=== PATIENT | male | born 1950 | race Asian ===

== ENCOUNTER → 2020-05-22 14:42 | Outpatient (BNVA) | payer MEDICARE, SELFPAY | PROVIDERS: Visit Provider Nurse Practitioner Gerontology | DX: E11.65 Type 2 diabetes mellitus with hyperglycemia (principal); E11.42 Type 2 diabetes mellitus with diabetic polyneuropathy; Z79.4 Long term (current) use of insulin; E78.5 Hyperlipidemia, unspecified; E55.9 Vitamin D deficiency, unspecified; I10 Essential (primary) hypertension; R07.89 Other chest pain | CPT/HCPCS: 82947; 99212 ==

== ENCOUNTER → 2020-06-26 15:10 | Outpatient (BNVA) | payer MEDICARE, SELFPAY | PROVIDERS: Visit Provider Nurse Practitioner Gerontology | DX: E11.65 Type 2 diabetes mellitus with hyperglycemia (principal); E11.42 Type 2 diabetes mellitus with diabetic polyneuropathy; Z79.4 Long term (current) use of insulin | CPT/HCPCS: 82947; 99212 ==

== ENCOUNTER → 2020-07-11 14:56 | Outpatient (BNVA) | payer MEDICARE, SELFPAY | PROVIDERS: Visit Provider Nurse Practitioner Gerontology | DX: E11.649 Type 2 diabetes mellitus with hypoglycemia without coma (principal); E11.42 Type 2 diabetes mellitus with diabetic polyneuropathy; Z79.4 Long term (current) use of insulin; E78.5 Hyperlipidemia, unspecified; I10 Essential (primary) hypertension; E55.9 Vitamin D deficiency, unspecified | CPT/HCPCS: 82947; 99212 ==

== ENCOUNTER 2020-08-22 09:50 | Outpatient (REF) | payer MEDICARE, SELFPAY ==
[2020-08-22 11:42] LABS: MANUAL DIFF FLAG NO
[2020-08-22 11:56] LABS: Basophils Absolute Auto 0.1 X10*3/uL (0.0-0.2); Basophils Percent Auto 0.6 % (0-2); Eosinophils Absolute Auto 0.3 X10*3/uL (0.0-0.4); Eosinophils Percent Auto 2.8 % (0-4); Hematocrit 45.4 % (42-52); Hemoglobin 13.5 g/dl (14.0-18.0); Imm Gran Abs Auto 0.03 X10*3/uL (0.00-0.03); Imm Gran Pct Auto 0.3 % (0.0-0.4); Lymphocytes Absolute Auto 3.8 X10*3/uL (1.2-4.9); Lymphocytes Percent Auto 31.6 % (20-40); Mean Corpuscular HGB Conc 29.7 g/dl (31.0-36.0); Mean Corpuscular Hemoglobin 23.4 pg (27.0-33.0); Mean Corpuscular Volume 78.8 fL (80-98); Mean Platelet Volume 11.3 fL (9.4-12.4); Monocytes Percent Auto 7.9 % (2-11); Neutrophils Absolute Auto 6.8 X10*3/uL (2.0-8.3); Neutrophils Percent Auto 56.8 % (45-73); Platelet Count 278 X10*3/uL (160-400); Red Blood Count 5.76 X10*6/uL (4.60-5.80); Red Cell Distribution Width 19.3 % (11.0-16.0)
[2020-08-22 12:37] LABS: Alanine Aminotransferase 14 U/L (0-40); Albumin Level 4.3 g/dL (3.5-5.0); Alkaline Phosphatase 79 U/L (39-117); Aspartate Amino Transferase 16 U/L (5-37); Bilirubin Direct 0.4 mg/dL (0.0-0.5); Bilirubin Total 0.8 mg/dL (0.0-1.0); Blood Urea Nitrogen 31 mg/dL (9-16); Calcium 9.9 mg/dL (8.4-10.2); Cholesterol 118 mg/dL; Estimated Glomerular Filt Rate 56; Glucose Random 127 mg/dL (60-115); HDL Cholesterol 29 mg/dL; LDL Cholesterol Calculated 49 mg/dl; Total Protein 8.3 g/dL (6.5-8.0); Triglycerides 201 mg/dL
[2020-08-22 12:42] LABS: Thyroid Stimulating Hormone 1.89 uIU/mL (0.32-4.0)
[2020-08-22 13:20] LABS: Anion Gap 15 (12-20); Carbon Dioxide 28 mmol/L (22-29); Chloride 103 mmol/L (96-108); Potassium 5.3 mmol/L (3.3-5.1); Sodium 141 mmol/L (135-145)
== END 2020-08-22 09:51 | disposition home or self-care (01) ==
LOC: HO.LAB 09:50
PROVIDERS: Absent Provider Internal Medicine; Visit Provider Nurse Practitioner Gerontology
DX: E11.42 Type 2 diabetes mellitus with diabetic polyneuropathy (principal); E11.21 Type 2 diabetes mellitus with diabetic nephropathy; Z79.4 Long term (current) use of insulin; E78.5 Hyperlipidemia, unspecified; E55.9 Vitamin D deficiency, unspecified; I10 Essential (primary) hypertension
CPT/HCPCS: 36415; 80048; 80061; 80076; 82306; 82947; 84443; 85025; 99212

== ENCOUNTER 2021-03-28 16:35 | Emergency (ER) | payer MEDICARE, SELFPAY ==
[2021-03-28 17:04] VITALS: BP 149/81; PULSE 94; RESP 18; TEMP 36.7; O2SAT 98; BMI 25.8
--- NOTE | 2021-03-28 17:44 | ED.URI ---
HPI - URI/Sore Throat General Chief Complaint: Upper Respiratory Symptoms Stated Complaint: sinus infection? Time Seen by Provider: 03/28/21 17:44 Source: patient Mode of arrival: ambulatory Limitations: no limitations History of Present Illness HPI Narrative: 70 y/o male wiht history of meningitis in the past with chronic weakness, hx HTN, HLD, PAD, DM with neuropathy, history of arthritis who presents to the ER from Urgent Care clinic today with right maxillary sinus pain and pressure along with green nasal discharge for the last 3 weeks. He was sent over for a COVID test. He denies shortness of breath or chest pain. He also admits to 4 days of left shoulder pain, worse at night when he sleeps on his left side. It is also worse with full abduction. He has history of arthritis and has been taking tylenol for this with improvement. He has no nausea or diaphoresis. He is having a difficult time sleeping because of the nasal congestion. MD elicited complaint: nasal congestion and sinus pain Onset (ago): week(s) (Three) Consistency: constant Severity: moderate Description of mucous: green Able to tolerate fluids by mouth: Yes Exacerbating factors: changing head position and supine positioning Relieving factors: OTC cold medicine Associated symptoms: myalgias and nasal congestion Treatments prior to arrival: none Related Data Home Medications Medication Instructions Recorded Confirmed diclofenac sodium 50 mg 50 mg PO TID PRN 05/22/20 11/07/20 tablet,delayed release gabapentin 300 mg capsule 300 mg PO TID 05/22/20 11/07/20 lubiprostone 24 mcg capsule 24 mcg PO BID 05/22/20 11/07/20 (Amitiza) acetaminophen 500 mg tablet 1,000 mg PO QPM PRN tab 08/08/20 11/07/20 (Tylenol Extra Strength) Previous Rx's Medication Instructions Recorded miscellaneous medical supply #1 ea 08/08/20 blood sugar diagnostic (Accu-Chek #100 ea 08/31/20 Nelly Plus test strp) insulin degludec 100 unit/mL (3 15 unit SUBCUT DAILY #15 ml 08/31/20 mL) subcutaneous pen (Tresiba FlexTouch U-100 insulin) metformin 1,000 mg tablet 1,000 mg PO BID #180 tab 10/04/20 empagliflozin 25 mg tablet 25 mg PO DAILY #90 tab 10/05/20 (Jardiance) carvedilol 25 mg tablet 25 mg PO ONCE #90 tab 10/13/20 allopurinol 100 mg tablet 100 mg PO BID #180 tab 11/07/20 allopurinol 100 mg tablet 100 mg PO BID 90 Days #180 tab 11/07/20 aspirin 81 mg tablet,delayed 81 mg PO DAILY #90 tab 11/07/20 release (Adult Low Dose Aspirin) aspirin 81 mg tablet,delayed 81 mg PO DAILY #90 tab 11/07/20 release (Adult Low Dose Aspirin) cholecalciferol (vitamin D3) 25 25 mcg PO DAILY #30 cap 11/07/20 mcg (1,000 unit) capsule cholecalciferol (vitamin D3) 25 25 mcg PO DAILY #90 cap 11/07/20 mcg (1,000 unit) capsule cilostazol 100 mg tablet 100 mg PO BID #180 tab 11/07/20 cilostazol 100 mg tablet 100 mg PO BID 90 Days #180 tab 11/07/20 docusate sodium 100 mg capsule 100 mg PO BID #180 cap 11/07/20 docusate sodium 100 mg capsule 100 mg PO BID 90 Days #180 cap 11/07/20 losartan 25 mg tablet 25 mg PO DAILY 90 Days #90 tab 11/07/20 losartan 25 mg tablet 25 mg PO DAILY 90 Days #90 tab 11/07/20 lubiprostone 24 mcg capsule 24 mcg PO BID #180 cap 11/07/20 (Amitiza) insulin lispro 100 unit/mL 4 - 6 unit SUBCUT TID #30 ml 12/22/20 subcutaneous pen (Humalog KwikPen (U-100) Insulin) atorvastatin 40 mg tablet 40 mg PO DAILY #90 tab 01/07/21 omeprazole 20 mg capsule,delayed 20 mg PO BID #60 cap 02/13/21 release dulaglutide 1.5 mg/0.5 mL 1.5 mg SUBCUT QWEEK 90 Days #6.5 ml 03/13/21 subcutaneous pen injector (Trulicity) amoxicillin 875 mg-potassium 1 tab PO Q12H #20 tab 03/28/21 clavulanate 125 mg tablet (Augmentin) fluticasone propionate 50 2 spray INTRANASAL DAILY #16 g 03/28/21 mcg/actuation nasal spray,suspension (24 Hour Allergy Relief) Allergies Allergy/AdvReac Type Severity Reaction Status Date / Time peanut Allergy Unknown Verified 03/28/21 17:04 Review of Systems Review of Systems: Constitutional: No Fever, No Chills ENT/Mouth: No sore throat, + Rhinorrhea, No Swallowing Difficulty, +Nasal congestion Eyes: No Eye Pain, No Swelling, No Redness Cardiovascular: No Chest Pain, No SOB, No Orthopnea, No Edema Respiratory: No Cough, No Sputum, No Wheezing, No dyspnea Gastrointestinal: No Nausea, No Vomiting, No Diarrhea, No abdominal Pain, No Hematochezia, No Melena Musculoskeletal: + joint pain, No Myalgias Skin: No Skin Lesions, No rash Neuro: + Weakness, No Numbness, No Dizziness, + Headache Heme/Lymph: No Bruising, No Lymphadenopathy PMFSH Past Medical History Medical History (Updated 03/28/21 @ 18:34 by SHAHNAZ Walton) CAD (coronary artery disease) Essential hypertension GERD (gastroesophageal reflux disease) Gout Hyperlipidemia LDL goal <70 PAD (peripheral artery disease) Screening for colon cancer Screening for prostate cancer Type 2 diabetes mellitus with diabetic polyneuropathy Type 2 diabetes mellitus with hyperglycemia, with long-term current use of insulin Type 2 diabetes mellitus with hypoglycemia Vitamin D deficiency Surgical History History of open heart surgery Hx of removal of cyst Family History Family History Father CVD (cardiovascular disease) Mother CVD (cardiovascular disease) Social History Social History Household Members: Family Housing: House Alcohol intake: never Advance Directives: No Advance Directives Information Provided: No Physical Exam Vital Signs: Vital Signs: Last Vital Signs Temp 98.0 F 03/28/21 17:04 Pulse 94 03/28/21 17:04 Resp 18 03/28/21 17:04 BP 149/81 H 03/28/21 17:04 Pulse Ox 98 03/28/21 17:04 Body Mass Index 25.8 Appearance: Alert. Oriented X3. No acute distress. Eyes: normal inspection. ENT: Pharynx with mild generalized erythema. Bilateral TM's with bulging and erythema, L>R. Right maxillary sinus tenderness, erythematous nasal turbinates bilaterally. Neck: Normal inspection. Neck supple. CVS: Normal heart rate and rhythm. Pulses normal. Respiratory: No respiratory distress. Breath sounds normal. Abdomen: Soft and nontender. +BS x4 Skin: Skin warm and dry. Normal skin color. Normal skin turgor. No rashes. Extremities: No lower extremity edema. Neuro: Oriented X 3. Generalized weakness noted, ambulates slowly with a cane. Course Course Course Narrative: 70-year-old male presenting for COVID testing. He has 3 weeks of sinus pain and green nasal discharge. He is afebrile on arrival. Generalized weakness noted he required assistance getting changed in getting into the bed. He reports this is his baseline. He lives at home with his and his son who helps him with his daily care. We will get a COVID swab and plan to treat for sinus infection. His left shoulder pain seems to be musculoskeletal in nature, he has no chest pain or shortness of breath. His left shoulder pain is reproducible with abductor id and worse when he sleeps on that side. Reevaluation(s) Reevaluation #1: COVID test is negative. Patient is stable for discharge with 10 days of Augmentin and Flonase for his acute sinusitis. He will follow-up with his PCP this week. MDM - URI/Sore Throat Lab Data Labs: Lab Results 03/28/21 03/28/21 Range/Units 17:40 18:12 COVID-19 ([facility]) Cancelled Negative COVID-19 Clin Com Cancelled See Note Critical Care Time Critical Care Time Critical Care Time: No Discharge Plan Discharge Clinical Impression: Sinusitis Qualifiers: Sinusitis location: maxillary Chronicity: acute Recurrence: non-recurrent Qualified Code(s): J01.00 - Acute maxillary sinusitis, unspecified Patient Disposition: Home, Self-Care Instructions: Sinusitis (ED) Additional Instructions: You were negative for COVID today. Start prescribed antibiotics tomorrow morning for acute sinus infection. Your given the 1st dose today in the ER. Use the prescribed nasal spray to help decrease the inflammation and decrease the congestion. Take [id number] cold and flu medications as needed for symptoms. Rest and stay hydrated. Follow-up with your doctor this week. If you develop new or worsening symptoms call 911 or come back to the ER for further evaluation. Prescriptions: New amoxicillin-pot clavulanate [Augmentin] 875-125 mg tablet 1 tab PO Q12H Qty: 20 RF: 0 fluticasone propionate [24 Hour Allergy Relief] 50 mcg/actuation spray,suspension 2 spray intranasal DAILY Qty: 16 RF: 0 No Action (DME) Accu-Chek Nelly Plus test strp Strip See Rx Instructions .ROUTE .MEDSUPPLY Qty: 100 RF: 11 Tresiba FlexTouch U-100 100 unit/mL (3 mL) insulin pen 15 unit subcut DAILY Qty: 15 RF: 2 metformin 1,000 mg tablet 1,000 mg PO BID Qty: 180 RF: 3 empagliflozin [Jardiance] 25 mg tablet 25 mg PO DAILY Qty: 90 RF: 3 carvedilol 25 mg tablet 25 mg PO ONCE Qty: 90 RF: 1 insulin lispro [Humalog KwikPen Insulin] 100 unit/mL insulin pen 4 - 6 unit subcut TID Qty: 30 RF: 0 atorvastatin 40 mg tablet 40 mg PO DAILY Qty: 90 RF: 0 omeprazole 20 mg capsule,delayed release(DR/EC) 20 mg PO BID Qty: 60 RF: 0 Trulicity 1.5 mg/0.5 mL pen injector 1.5 mg subcut QWEEK 90 Days Qty: 6.5 RF: 0 acetaminophen [Tylenol Extra Strength] 500 mg tablet 1,000 mg PO QPM PRNRF: 0 (DME) [facility] See Rx Instructions .ROUTE .MEDSUPPLY Qty: 1 RF: 0 allopurinol 100 mg tablet 100 mg PO BID 90 Days Qty: 180 RF: 0 aspirin [Adult Low Dose Aspirin] 81 mg tablet,delayed release (DR/EC) 81 mg PO DAILY Qty: 90 RF: 1 cholecalciferol (vitamin D3) 25 mcg (1,000 unit) capsule 25 mcg PO DAILY Qty: 30 RF: 11 docusate sodium 100 mg capsule 100 mg PO BID 90 Days Qty: 180 RF: 0 losartan 25 mg tablet 25 mg PO DAILY 90 Days Qty: 90 RF: 1 cilostazol 100 mg tablet 100 mg PO BID 90 Days Qty: 180 RF: 0 allopurinol 100 mg tablet 100 mg PO BID Qty: 180 RF: 0 lubiprostone [Amitiza] 24 mcg capsule 24 mcg PO BID Qty: 180 RF: 0 aspirin [Adult Low Dose Aspirin] 81 mg tablet,delayed release (DR/EC) 81 mg PO DAILY Qty: 90 RF: 1 docusate sodium 100 mg capsule 100 mg PO BID Qty: 180 RF: 0 losartan 25 mg tablet 25 mg PO DAILY 90 Days Qty: 90 RF: 1 cilostazol 100 mg tablet 100 mg PO BID Qty: 180 RF: 0 cholecalciferol (vitamin D3) 25 mcg (1,000 unit) capsule 25 mcg PO DAILY Qty: 90 RF: 4 gabapentin 300 mg capsule 300 mg PO TID RF: 0 diclofenac sodium 50 mg tablet,delayed release (DR/EC) 50 mg PO TID PRNRF: 0 Amitiza 24 mcg capsule 24 mcg PO BID RF: 0
[2021-03-28 18:38] LABS: COVID-19 Test Negative (Negative)
[2021-03-28] MEDS: Amoxicillin/Potassium Clav 875 MG TABLET PO (19:15)
== END 2021-03-28 19:23 | disposition home or self-care (01) ==
PROVIDERS: Physician Assistant; Emergency Provider Internal Medicine
DX: J01.00 Acute maxillary sinusitis, unspecified (principal); I10 Essential (primary) hypertension; E11.40 Type 2 diabetes mellitus with diabetic neuropathy, unspecified; Z79.4 Long term (current) use of insulin; Z79.82 Long term (current) use of aspirin; Z79.899 Other long term (current) drug therapy; Z20.822 Contact with and (suspected) exposure to COVID-19
CPT/HCPCS: 36415; 87635; 99283

== ENCOUNTER → 2021-06-07 13:18 | Outpatient (BNVA) | payer MEDICARE, SELFPAY | PROVIDERS: Visit Provider Surgery Vascular Surgery | DX: I73.9 Peripheral vascular disease, unspecified (principal) | CPT/HCPCS: 99202 ==

== ENCOUNTER 2021-07-02 12:43 | Outpatient (REF) | payer MEDICARE, SELFPAY ==
--- NOTE | ~2021-07-02 | US_ITS ---
EXAMINATION: NONINVASIVE ASSESSMENT OF THE ARTERIES OF BOTH LOWER EXTREMITIES INCLUDING PVR EXAM AND BILATERAL LOWER EXTREMITY DUPLEX CLINICAL INFORMATION: Peripheral vascular disease, unspecified COMPARISON: None TECHNIQUE: Ankle pulse volume recordings, ankle pressure measurements and ankle brachial indices were obtained of the lower extremity arterial system bilaterally in addition to duplex Doppler techniques with wave form analysis and measurement of velocities in the common femoral, profunda femoral, superficial femoral, popliteal, tibial and peroneal arteries. The study was performed only at rest. FINDINGS: RIGHT LEG 1. Right Ankle-Brachial Index: 1.51 (higher of the DP/PT) >0.97-1.25 = normal - no significant arterial disease 0.75-0.96 = mild peripheral arterial disease 0.5-0.74 = moderate peripheral arterial disease <0.50 = severe peripheral arterial disease <0.30 = critical arterial disease 2. Segmental Pressures (mmHg): Brachial: 135 Ankle: PT 165, DP 204 3. PVR Waveforms: Ankle: Blunted, though present dicrotic notch 4. Direct Duplex: Common femoral artery: 107 cm/s, Multiphasic Profunda femoris artery: 51.9 cm/s, Multiphasic Superficial femoral artery (proximal): 96.2 cm/s, Multiphasic Superficial femoral artery (mid): 148 cm/s, Multiphasic Superficial femoral artery (distal): 87.9 cm/s, Multiphasic Proximal Popliteal artery: 67.6 cm/s, Multiphasic Mid posterior tibial artery: 42.9 cm/s, Multiphasic Peroneal artery: 58.9 cm/s, Multiphasic LEFT LE. Left Ankle-Brachial Index: 1.29 (higher of the DP/PT) >0.97-1.25 = normal - no significant arterial disease 0.75-0.96 = mild peripheral arterial disease 0.5-0.74 = moderate peripheral arterial disease <0.50 = severe peripheral arterial disease <0.30 = critical arterial disease 2. Segmental Pressures: Brachial: 132 Ankle: PT 174, DP 96 3. PVR Waveforms: Ankle: Blunted, though present dicrotic notch 4. Direct Duplex: Common femoral artery: 95.6 cm/s, Multiphasic Profunda femoris artery: 57 cm/s, Multiphasic Superficial femoral artery (proximal): 73.9 cm/s, Multiphasic Superficial femoral artery (mid): 105 cm/s, Multiphasic Superficial femoral artery (distal): 80.9 cm/s, Multiphasic Proximal Popliteal artery: 79.2 cm/s, Multiphasic Mid posterior tibial artery: 85.6 cm/s, monophasic Peroneal artery: 66.8 cm/s, monophasic US/US arterial duplex LE BI IMPRESSION: Right: Elevated ABIs are likely secondary to calcified vessels. Multiphasic flow throughout the right lower extremity without evidence of hemodynamically significant stenosis. Left: Elevated ABIs may be secondary to calcified vessel. There is monophasic flow below the level of the popliteal artery suggestive of popliteal disease.
== END 2021-07-02 12:44 | disposition home or self-care (01) ==
LOC: HO.US 12:43
PROVIDERS: PCP Internal Medicine; Visit Provider Surgery Vascular Surgery
DX: I73.9 Peripheral vascular disease, unspecified (principal)
CPT/HCPCS: 93923; 93925

== ENCOUNTER → 2021-07-05 13:31 | Outpatient (BNVA) | payer MEDICARE, SELFPAY | PROVIDERS: PCP Internal Medicine; Visit Provider Surgery Vascular Surgery | DX: I73.9 Peripheral vascular disease, unspecified (principal) | CPT/HCPCS: 99212 ==

== ENCOUNTER 2022-04-09 07:59 | Outpatient (REF) | payer MEDICARE, SELFPAY ==
[2022-04-09 09:27] LABS: Estimated Average Glucose 180 mg/dL; Hemoglobin A1c % 7.9 %
[2022-04-09 09:36] LABS: Glucose Random 213 mg/dL (60-115)
== END 2022-04-09 08:00 | disposition home or self-care (01) ==
LOC: HO.LAB 07:59
PROVIDERS: PCP Hospitalist; Visit Provider Hospitalist
DX: E11.8 Type 2 diabetes mellitus with unspecified complications (principal)
CPT/HCPCS: 36415; 82947; 83036

== ENCOUNTER → 2022-09-05 14:54 | Outpatient (BNVA) | payer MEDICARE, SELFPAY | PROVIDERS: PCP Hospitalist; Visit Provider Internal Medicine Cardiovascular Disease | DX: I42.9 Cardiomyopathy, unspecified (principal); I44.7 Left bundle-branch block, unspecified; I10 Essential (primary) hypertension | CPT/HCPCS: 93005; 99212 ==

== ENCOUNTER → 2022-10-30 08:44 | Outpatient (REF) | payer MEDICARE, MEDICAID, SELFPAY ==
[2022-09-19 09:30] VITALS: BP 108/62; BP 110/58
[2022-10-15 12:53] VITALS: BP 128/64
--- NOTE | 2022-10-30 08:49 | CA_ITS ---
Transthoracic Echocardiogram Patient (Last, First, Middle): Keren Kohli R Gender: Male Date of : 1950 Age: 72 Procedure Date: 10/30/2022 Procedure Type: Transthoracic Echocardiogram Location: OP Height: 172.72 cm Weight: 72.58 kg BSA: 1.86 m2 Heart Rate: bpm BP: 130 / 58 mmHg Technical Support Agent: TO Referring MD: Shashank Martell MD Symptoms: I42.9 - Cardiomyopathy, unspecified Study Quality: Fair/Contrast Conclusions: - Normal left ventricular cavity size. The left ventricular systolic function is moderately decreased. The visually estimated ejection fraction is between 30-35%. - The inferior wall, the apex, apical septum, basal inferoseptal, and mid anteroseptal segments are akinetic. - The mid inferoseptal segment is dyskinetic. - Normal right ventricular cavity size. There is mild to moderately decreased right ventricular systolic function. - There is moderate aortic valve stenosis. The peak aortic velocity is 2.20 m/s. The mean gradient is 9 mmHg. The aortic valve area is 0.95 cm2. There is no aortic valve regurgitation. Gradients are lower due to low stroke volume. Findings Left Ventricle Normal left ventricular cavity size. The left ventricular systolic function is moderately decreased. The visually estimated ejection fraction is between 30-35%. There is evidence of regional wall motion abnormalities. There is paradoxical septal motion consistent with post-operative status and paradoxical septal motion consistent with a left bundle branch block. Diastolic function is indeterminate on the basis of available data. Wall Motion Rest Echo Findings The inferior wall, the apex, apical septum, basal inferoseptal, and mid anteroseptal segments are akinetic. The mid inferoseptal segment is dyskinetic. Right Ventricle Normal right ventricular cavity size. There is mild to moderately decreased right ventricular systolic function. Atria The left atrium is mildly dilated. The right atrium is normal in size. Aortic Valve There is mild calcification of the aortic valve. There is moderate aortic valve stenosis. The peak aortic velocity is 2.20 m/s. The mean gradient is 9 mmHg. The aortic valve area is 0.95 cm2. There is no aortic valve regurgitation. Gradients are lower due to low stroke volume. Mitral Valve There is mild posterior mitral leaflet thickening. There is mild mitral annular calcification. There is trace mitral valve regurgitation. There is no mitral valve stenosis. Tricuspid Valve Normal tricuspid valve structure and function. There is trace tricuspid valve regurgitation. Tricuspid regurgitation envelope is inadequate for calculation of right ventricular systolic pressure. Normal right atrial pressure. Great Vessels All visible segments of the aorta are normal in size. The visualized portions of the pulmonary artery and branches are normal. Venous The inferior vena cava is normal in size and collapses greater than 50% with inspiration. Pericardium/Pleural There is no evidence of pericardial effusion. Measurements 2D Linear Measurements IVSd: 1.57 0.6-0.9/0.6-1.0 cm LVIDd: 5.02 3.9-5.3/4.2-5.9 cm LVIDd Index: 2.70 2.4-3.2/2.2-3.1 cm/m2 LVIDs: 3.78 2.0-3.6 cm LVPWd: 1.00 0.7-1.1 cm LA Diam: 4.20 2.7-3.8/3.0-4.0 cm LAIDs Index: 2.26 1.5-2.3 cm/m2 LV Mass: 323.17 67-162/88-224 g LV Mass Index: 173.75 43-95/49-115 g/m2 LVOT Diam: 2.00 3.0+(-)1.3 cm 2D Systolic Function EF 4C: 38.10 >55% EF 2C: 35.50 >55% EF BiP: 37.80 >55% Mitral Valve MV Pk E: 1.30 MV Decel Time: 128.00 E'Lateral: 16.50 E'Medial: 9.79 E/E' Med: 13.30 E/E' Lat: 7.90 PHT: 38.00 MVA PHT: 5.79 Decel Hunt: 10.14 Aortic Valve AoV Pk Brian: 2.20 AoV Mn Brian: 1.40 AoV VTI: 0.46 AoV Pk Grad: 19.00 Aov Mn Grad: 9.00 ARMAND Cont.VTI: 0.95 LVOT LVOT Pk Brian: 0.73 LVOT Mn Brian: 0.48 LVOT VTI: 0.14 LVOT Pk Grad: 2.00 LVOT Mn Grad: 1.00 LVOT Diam: 2.00 LVOT Area: 3.14 Diastolic Function MV Pk E: 1.30 E'Medial: 9.79 E/E' Med: 13.30 E' Laterial: 16.50 E/E' Lat: 7.90 Right Ventricle TAPSE (mm): 8.91 TVS' Brian: 4.21 Tricuspid Valve RA Press: 3.00 Great Vessels Aorta Sinus of Valsalva: 3.26 2.0-3.[address] [place]: 2.55 1.7-3.4 cm Ao Asc: 3.00 2.1-3.4 cm Updated in Other Vendor System with Status of Final Shashank Martell MD electronically signed on 10/30/2022 1:03:32 PM with status of Final
== END ==
LOC: HO.CARD 08:44
PROVIDERS: PCP Hospitalist; Visit Provider Internal Medicine Cardiovascular Disease
DX: I42.9 Cardiomyopathy, unspecified (principal)
CPT/HCPCS: 93306; Q9957

== ENCOUNTER → 2022-12-13 10:13 | Outpatient (BNVA) | payer OTHER, MEDICAID, SELFPAY ==
[2022-09-19 09:30] VITALS: BP 108/62; BP 110/58
[2022-12-10 11:50] VITALS: BP 104/64; BMI 25.0
== END ==
PROVIDERS: PCP Hospitalist; Visit Provider Internal Medicine Cardiovascular Disease
DX: I42.9 Cardiomyopathy, unspecified (principal); I44.7 Left bundle-branch block, unspecified; I10 Essential (primary) hypertension
CPT/HCPCS: 93005

== ENCOUNTER → 2023-01-13 07:36 | Outpatient (REF) | payer OTHER, SELFPAY ==
[2022-09-19 09:30] VITALS: BP 108/62; BP 110/58
[2022-12-10 11:50] VITALS: BP 104/64; BMI 25.0
[2023-01-13 08:18] LABS: Estimated Average Glucose 206 mg/dL; Hemoglobin A1c % 8.8 %
[2023-01-13 08:47] LABS: Alanine Aminotransferase 11 U/L (0-40); Albumin Level 3.8 g/dL (3.5-5.0); Alkaline Phosphatase 82 U/L (39-117); Anion Gap 16 (12-20); Aspartate Amino Transferase 14 U/L (5-37); Bilirubin Total 0.5 mg/dL (0.0-1.0); Blood Urea Nitrogen 22 mg/dL (9-16); Calcium 9.5 mg/dL (8.4-10.2); Carbon Dioxide 23 mmol/L (22-29); Chloride 105 mmol/L (96-108); Cholesterol 96 mg/dL; Estimated Glomerular Filt Rate > 60; Glucose Random 173 mg/dL (60-115); HDL Cholesterol 27 mg/dL; LDL Cholesterol Calculated 36 mg/dl; Sodium 139 mmol/L (135-145); Triglycerides 166 mg/dL
--- NOTE | 2023-01-13 09:05 | CA_ITS ---
Transthoracic Echocardiogram Patient (Last, First, Middle): Keren Kohli R Gender: Male Date of : 1950 Age: 72 Procedure Date: 01/13/2023 Procedure Type: Transthoracic Echocardiogram Location: OP Height: 172.72 cm Weight: 74.84 kg BSA: 1.88 m2 Heart Rate: 85 bpm BP: 136 / 65 mmHg [place] [employer]our: MARYBETH Referring MD: Shashank Martell MD Admissions Clerk: Shashank Martell MD Symptoms: I42.9 - Cardiomyopathy, unspecified Study Quality: Adequate w contrast ECG Rhythm: Sinus Conclusions: - The left ventricular systolic function is moderate to severely decreased. The visually estimated ejection fraction is between 30-35%. - There is evidence of regional wall motion abnormalities, related to underlying coronary disease. Findings Procedure Information Contrast agent, definity, is being given per protocol without apparent complications. Left Ventricle Normal left ventricular cavity size. The left ventricular systolic function is moderate to severely decreased. The visually estimated ejection fraction is between 30-35%. There is evidence of regional wall motion abnormalities. There is moderate septal and moderate basal asymmetric hypertrophy. Wall Motion Rest Echo Findings The mid inferoseptal segment is hypokinetic. The basal inferior, mid inferior, apical septum, and mid anteroseptal segments are akinetic. Tricuspid Valve There is mild tricuspid valve regurgitation. Prior Study Comparison No significant change compared to prior study dated: 10/30/2022. Measurements 2D Linear Measurements IVSd: 1.20 0.6-0.9/0.6-1.0 cm LVIDd: 5.01 3.9-5.3/4.2-5.9 cm LVIDd Index: 2.66 2.4-3.2/2.2-3.1 cm/m2 LVIDs: 4.09 2.0-3.6 cm LVPWd: 0.83 0.7-1.1 cm LV Mass: 232.40 67-162/88-224 g LV Mass Index: 123.62 43-95/49-115 g/m2 LVOT Diam: 2.10 3.0+(-)1.3 cm 2D Systolic Function EF 4C: 40.70 >55% EF 2C: 39.70 >55% EF BiP: 39.20 >55% Aortic Valve AoV Pk Brian: 1.88 AoV Mn Brian: 1.28 AoV VTI: 0.43 AoV Pk Grad: 14.00 Aov Mn Grad: 8.00 ARMAND Cont.VTI: 1.27 LVOT LVOT Pk Brian: 0.71 LVOT Mn Brian: 0.51 LVOT VTI: 0.16 LVOT Pk Grad: 2.00 LVOT Mn Grad: 1.00 LVOT Diam: 2.10 LVOT Area: 3.46 Tricuspid Valve TR Pk Brian: 2.88 TR Pk Grad: 33.00 RA Press: 3.00 RVSP: 36.00 Updated in Other Vendor System with Status of Final Cisco Hill MD electronically signed on 01/13/2023 10:15:54 AM with status of Final
[2023-01-13 11:05] LABS: Creatinine Urine 47.72 mg/dL
== END ==
LOC: HO.CARD 07:36
PROVIDERS: Absent Provider Hospitalist; PCP Hospitalist; Visit Provider Internal Medicine Cardiovascular Disease
DX: I42.9 Cardiomyopathy, unspecified (principal); E11.8 Type 2 diabetes mellitus with unspecified complications
CPT/HCPCS: 36415; 80053; 80061; 82043; 83036; 93308; Q9957

== ENCOUNTER → 2023-01-13 09:05 | Outpatient (BNV) | payer OTHER, SELFPAY ==
[2022-09-19 09:30] VITALS: BP 108/62; BP 110/58
[2022-12-10 11:50] VITALS: BP 104/64; BMI 25.0
== END ==
PROVIDERS: Absent Provider Hospitalist; PCP Hospitalist; Visit Provider Internal Medicine
DX: I36.1 Nonrheumatic tricuspid (valve) insufficiency (principal)
CPT/HCPCS: 93308

== ENCOUNTER 2023-01-22 09:31 | Outpatient (AMB) | payer OTHER, MEDICAID, SELFPAY ==
[2022-09-19 09:30] VITALS: BP 108/62; BP 110/58
[2022-12-10 11:50] VITALS: BP 104/64; BMI 25.0
--- NOTE | 2023-01-22 10:03 | MHC.OFFVIS ---
Intake Vital Signs 01/22/23 10:04 Height 5 ft 7 in Weight 169 lb 5.04 oz BMI 26.5 BP 104/68 Blood Pressure Location Lt brachial Position Sitting Pulse 97 Pulse Source Pulse Oximeter Intake Visit Reasons: 1 MON FUP S/P LIMITED ECHO (OK PER KM FOR AM SLOT) Intake Note: 1 month follow up after limited echo. Branch Account Manager Required: No Accompanied by: Son Allergies No Known Allergies Allergy (Verified 01/22/23 10:07) Medication List - Last Reconciled 01/22/23 by Shashank Martell MD acetaminophen (Tylenol Extra Strength) 1,000 mg PO QPM PRN acetaminophen ER (Mapap Arthritis Pain) 1,300 mg PO Q12H PRN apixaban 5 mg PO BID aspirin (Adult Low Dose Aspirin) 81 mg PO DAILY atorvastatin 40 mg PO DAILY blood sugar diagnostic (Accu-Chek Nelly Plus test strips) 4 x/day carvedilol 12.5 mg PO BID cholecalciferol (vitamin D3) 25 mcg PO DAILY docusate sodium 100 mg PO BID dulaglutide (Trulicity) mg subcut QWEEK dulaglutide (Trulicity) mg subcut empagliflozin (Jardiance) 25 mg PO DAILY fluticasone propionate 50 mcg/actuation 1 spray intranasal DAILY gabapentin 300 mg PO TID insulin degludec (Tresiba FlexTouch U-100 insulin) 24 units subcut DAILY insulin lispro (Humalog KwikPen (U-100) Insulin) 4 - 6 units (0.04 - 0.06 mL) subcut TID isosorbide mononitrate ER 30 mg PO DAILY levocetirizine 5 mg PO QPM metformin 1,000 mg PO BID nitroglycerin 0 mg sublingual omeprazole 20 mg PO BID sacubitril-valsartan 24-26 mg (Entresto) 1 tab PO BID tamsulosin 0.4 mg PO DAILY HPI HPI Comments History of Present Illness Details Pleasant 72 gentleman is here for 1st office visit. He has background history of coronary artery bypass surgery which was performed in 2005. It appears he had BATEMAN to LAD, saphenous vein graft to OM1 and radial graft to OM3. There was no graft placed to the right coronary artery. It appears he got admitted to hospital with urinary retention and eventually developed chest discomfort and echocardiography nuclear perfusion imaging was performed. ECHO showed EF of 15-20% with global hypokinesis and nuclear stress test was more consistent with fixed anterior perfusion defect consistent with scar. He underwent cardiac catheterization at that time which showed that his vein graft to om 1 and om 2 are both patent. He had a chronic total occlusion of the right coronary artery. He had severe proximal and distal LAD stenosis of 80-90%. Proximal 2nd diagonal has 90% stenosis. Left main 35% stenosis. Om 1 and OM 2 both are 99% and 95% stenosis. It appears he was medically treated and sent home with guideline directed medical therapy. His EKG also showed first-degree AV block and left bundle-branch block. He has been doing cardiac rehabilitation and it appears he has been progressing there. Off and on he has noticed some right-sided chest pain which gets for severe presses his chest wall. I think this is musculoskeletal pain. His additional anginal discomfort was a center pressure-like feeling. He returns and his medications are different. It appears he had a prescription given to him through his primary care office of lisinopril 2.5 mg. He is also taking Entresto and there is a serious reaction between the 2 medications. I have advised him to stop the lisinopril and we have reached out to the physician's office to make sure that lisinopril will script is canceled. His blood pressure is a little low but he is not dizzy or lightheaded. He seems to be progressing at a cardiac rehab which is a good sign. He was previous also on apixaban for paroxysmal atrial fibrillation but he returns and is off apixaban. He is not sure why it was stopped. His recent echocardiography has shown moderate LV dysfunction with EF of 30 35%. He has avoided left bundle-branch block. 01/22/23: He returns for follow-up. He has been exercising at cardiac rehab and doing well. Repeat echocardiography which was a limited echo showed EF of 30 35%. Tolerating medications and taking them regularly. [facility] Medical History CAD (coronary artery disease) Cerebrovascular accident (CVA) determined by clinical assessment Essential hypertension GERD (gastroesophageal reflux disease) Gout Hyperlipidemia LDL goal <70 PAD (peripheral artery disease) Screening for colon cancer Screening for prostate cancer Type 2 diabetes mellitus with diabetic polyneuropathy Type 2 diabetes mellitus with hyperglycemia, with long-term current use of insulin Type 2 diabetes mellitus with hypoglycemia Vitamin D deficiency Surgical History History of open heart surgery Hx of removal of cyst Family History Father CVD (cardiovascular disease) Mother CVD (cardiovascular disease) Social History Household Members: Family Housing: House Alcohol intake: never Patient Tobacco Use Status: Never used Tobacco e-Cigarette/Vaping Use: Never Used Second Hand Smoke Exposure: No service: No Current occupational status: retired Cognitive needs: No Hearing needs: No Vision needs: No Review of Systems Const Denies weakness ENT Denies dizziness Card Denies chest pain, Denies chest pain with activity, Denies syncope, Denies rapid heart rate, Denies pedal edema, Denies edema, Denies leg edema, Denies lightheadedness, Denies palpitations, Denies dyspnea, Denies dyspnea on exertion and Denies orthopnea Resp Denies cough, Denies dyspnea and Denies dyspnea on exertion GI Denies hematochezia and Denies change in stool character Musc Denies abnormal gait, Denies muscle cramps, Denies muscle weakness, Denies numbness, Denies radiating pain into limb and Denies tingling Neuro Denies abnormal gait, Denies dizziness, Denies syncope, Denies numbness, Denies tingling and Denies weakness Endo Denies palpitations Physical Exam Vital Signs: Last Vital Signs Pulse 97 01/22/23 10:04 BP 104/68 01/22/23 10:04 BMI result Body Mass Index 26.5 GENERAL APPEARANCE: in no acute distress, pleasant. NECK: no carotid bruit, no jugular venous distention. SKIN: no suspicious lesions, warm and dry. HEART: Systolic murmur aortic area with preserved 2nd heart sound, regular rate and rhythm. LUNGS: clear to auscultation bilaterally. ABDOMEN: soft, nontender. EXTREMITIES: no edema. PERIPHERAL PULSES: equal. NEUROLOGIC: No gross deficits, AAO X 3 Assessment & Plan Assessment & Plan (1) Cardiomyopathy: Code(s): I42.9 - Cardiomyopathy, unspecified (2) LBBB (left bundle branch block): Code(s): I44.7 - Left bundle-branch block, unspecified (3) Essential hypertension: Code(s): I10 - Essential (primary) hypertension Plan 72-year-old gentleman who is here for follow-up. He was admitted to [facility] for urinary retention and developed some chest discomfort leading to further testing and was diagnosed with cardiomyopathy. He underwent cardiac catheterization which showed severe [place] LAD disease after BATEMAN touchdown and his vein graft to OM and left radial graft to OM 2 were patent. He was started on guideline directed medical therapy and was discharged home. He is currently not in heart failure. His volume status appears to be quite good. He has no orthopnea PND. He is doing [facility] rehab [facility] and is doing well there. Limited echocardiography has shown EF of 30 35%. This is on guideline directed medical therapy. He has indication for ICD placement. He has a wide left bundle-branch block. I think he will benefit from Bi V AICD placement. I am referring to electrophysiology for assessment. Thank you for allowing me to participate in the care of your patient. Please feel free to contact me if you have any questions. Orders: Referrals Cardiology Referral I42.9 - Cardiomyopathy, unspecified Coding Level of Care Code Procedure Only Diagnoses Cardiomyopathy I42.9 LBBB (left bundle branch block) I44.7 Essential hypertension I10
[2023-01-22 10:04] VITALS: BP 104/68; PULSE 97; BMI 26.5
== END 2023-01-22 10:31 | disposition home or self-care (01) ==
PROVIDERS: PCP Hospitalist; Referring Provider Hospitalist; Visit Provider Internal Medicine Cardiovascular Disease
DX: I42.9 Cardiomyopathy, unspecified (principal); I44.7 Left bundle-branch block, unspecified; I10 Essential (primary) hypertension
CPT/HCPCS: 99213

== ENCOUNTER → 2023-01-22 09:31 | Outpatient (BNVA) | payer OTHER, MEDICAID, SELFPAY ==
[2022-09-19 09:30] VITALS: BP 108/62; BP 110/58
[2022-12-10 11:50] VITALS: BP 104/64; BMI 25.0
== END ==
PROVIDERS: PCP Hospitalist; Referring Provider Hospitalist; Visit Provider Internal Medicine Cardiovascular Disease
DX: I42.9 Cardiomyopathy, unspecified (principal); I44.7 Left bundle-branch block, unspecified; I10 Essential (primary) hypertension
CPT/HCPCS: 99212

== ENCOUNTER 2023-04-30 09:02 | Outpatient (AMB) | payer OTHER, MEDICAID, SELFPAY ==
[2022-09-19 09:30] VITALS: BP 108/62; BP 110/58
[2022-12-10 11:50] VITALS: BP 104/64; BMI 25.0
[2023-04-30 09:09] VITALS: BP 110/66; PULSE 72; BMI 26.2
--- NOTE | 2023-04-30 09:09 | A.OFFVIS_ITS ---
Intake Vital Signs 04/30/23 09:09 Height 5 ft 7 in Weight 167 lb 1.766 oz BMI 26.2 BP 110/66 Blood Pressure Location Rt brachial Position Sitting Pulse 72 Pulse Source Palpation Intake Visit Reasons: 3 mthf/up ref to dr castañeda Intake Note: 3 month follow up Printing Table Hand Required: No Accompanied by: Self / Same As Patient Allergies No Known Allergies Allergy (Verified 04/30/23 09:13) Medication List - Last Reconciled 04/30/23 by Shashank Martell MD acetaminophen (Tylenol Extra Strength) 1,000 mg PO QPM PRN acetaminophen ER (Mapap Arthritis Pain) 1,300 mg PO Q12H PRN apixaban 5 mg PO BID aspirin (Adult Low Dose Aspirin) 81 mg PO DAILY atorvastatin 40 mg PO DAILY blood sugar diagnostic (Accu-Chek Nelly Plus test strips) 4 x/day carvedilol 12.5 mg PO BID cholecalciferol (vitamin D3) 25 mcg PO DAILY docusate sodium 100 mg PO BID dulaglutide (Trulicity) mg subcut QWEEK dulaglutide (Trulicity) mg subcut empagliflozin (Jardiance) 25 mg PO DAILY fluticasone propionate 50 mcg/actuation 1 spray intranasal DAILY gabapentin 300 mg PO TID insulin degludec (Tresiba FlexTouch U-100 insulin) 24 units subcut DAILY insulin lispro (Humalog KwikPen (U-100) Insulin) 4 - 6 units (0.04 - 0.06 mL) subcut TID isosorbide mononitrate ER 30 mg PO DAILY levocetirizine 5 mg PO QPM metformin 1,000 mg PO BID nitroglycerin 0 mg sublingual omeprazole 20 mg PO BID sacubitril-valsartan 24-26 mg (Entresto) 1 tab PO BID tamsulosin 0.4 mg PO DAILY HPI HPI Comments History of Present Illness Details Pleasant 72 gentleman is here for 1st office visit. He has background history of coronary artery bypass surgery which was performed in 2005. It appears he had BATEMAN to LAD, saphenous vein graft to OM1 and radial graft to OM3. There was no graft placed to the right coronary artery. It appears he got admitted to hospital with urinary retention and eventually developed chest discomfort and echocardiography nuclear perfusion imaging was performed. ECHO showed EF of 15-20% with global hypokinesis and nuclear stress test was more consistent with fixed anterior perfusion defect consistent with scar. He underwent cardiac catheterization at that time which showed that his vein graft to om 1 and om 2 are both patent. He had a chronic total occlusion of the right coronary artery. He had severe proximal and distal LAD stenosis of 80-90%. Proximal 2nd diagonal has 90% stenosis. Left main 35% stenosis. Om 1 and OM 2 both are 99% and 95% stenosis. It appears he was medically treated and sent home with guideline directed medical therapy. His EKG also showed first-degree AV block and left bundle-branch block. He has been doing cardiac rehabilitation and it appears he has been progressing there. Off and on he has noticed some right-sided chest pain which gets for s evere presses his chest wall. I think this is musculoskeletal pain. His additional anginal discomfort was a center pressure-like feeling. He returns and his medications are different. It appears he had a prescription given to him through his primary care office of lisinopril 2.5 mg. He is also taking Entresto and there is a serious reaction between the 2 medications. I have advised him to stop the lisinopril and we have reached out to the physician's office to make sure that lisinopril will script is canceled. His blood pressure is a little low but he is not dizzy or lightheaded. He seems to be progressing at a cardiac rehab which is a good sign. He was previous also on apixaban for paroxysmal atrial fibrillation but he returns and is off apixaban. He is not sure why it was stopped. His recent echocardiography has shown moderate LV dysfunction with EF of 30 35%. He has avoided left bundle-branch block. 01/22/23: He returns for follow-up. He h as been exercising at cardiac rehab and doing well. Repeat echocardiography which was a limited echo showed EF of 30 35%. Tolerating medications and taking them regularly. 04/30/23: Returns for follow-up. He waters s been doing fine with cardiac rehabilitation. Occasionally gets chest discomfort. Blood pressure is normal. Previously was referred for ELECTRONIC SCANNER OPERATOR D. It appears there has been some communication issues between electrophysiology and Mr. Kohli. I will look into this. Overall he has been stable. [facility] Medical History CAD (coronary artery disease) Cerebrovascular accident (CVA) determined by clinical assessment Essential hypertension GERD (gastroesophageal reflux disease) Gout Hyperlipidemia LDL goal <70 PAD (peripheral artery disease) Screening for colon cancer Screening for prostate cancer Type 2 diabetes mellitus with diabetic polyneuropathy Type 2 diabetes mellitus with hyperglycemia, with long-term current use of insulin Type 2 diabetes mellitus with hypoglycemia Vitamin D deficiency Surgical History Hx of removal of cyst History of open heart surgery Family History Father CVD (cardiovascular disease) Mother CVD (cardiovascular disease) Social History Household Members: Family Housing: House Alcohol intake: never Patient Tobacco Use Status: Never used Tobacco e-Cigarette/Vaping Use: Never Used Second Hand Smoke Exposure: No service: No Current occupational status: retired Cognitive needs: No Hearing needs: No Vision needs: No Review of Systems Const Denies weakness ENT Denies dizziness Card Denies chest pain, Denies chest pain with activity, Denies syncope, Denies rapid heart rate, Denies pedal edema, Denies edema, Denies leg edema, Denies lightheadedness, Denies palpitations, Denies dyspnea, Denies dyspnea on exertion and Denies orthopnea Resp Denies cough, Denies dyspnea and Denies dyspnea on exertion GI Denies hematochezia and Denies change in stool character Musc Denies abnormal gait, Denies muscle cramps, Denies muscle weakness, Denies numbness, Denies radiating pain into limb and Denies tingling Neuro Denies abnormal gait, Denies dizziness, Denies syncope, Denies numbness, Denies tingling and Denies weakness Endo Denies palpitations Physical Exam Vital Signs: Last Vital Signs Pulse 72 04/30/23 09:09 BP 110/66 04/30/23 09:09 BMI result Body Mass Index 26.2 GENERAL APPEARANCE: in no acute distress, pleasant. NECK: no carotid bruit, no jugular venous distention. SKIN: no suspicious lesions, warm and dry. HEART: Systolic murmur aortic area with preserved 2nd heart sound, regular rate and rhythm. LUNGS: clear to auscultation bilaterally. ABDOMEN: soft, nontender. EXTREMITIES: no edema. PERIPHERAL PULSES: equal. NEUROLOGIC: No gross deficits, AAO X 3 Assessment & Plan Assessment & Plan (1) Stable angina: Code(s): I20.8 - Other forms of angina pectoris (2) LBBB (left bundle branch block): Code(s): I44.7 - Left bundle-branch block, unspecified (3) Cardiomyopathy: Code(s): I42.9 - Cardiomyopathy, unspecified Plan Pleasant 72 year gentleman who is here for follow-up. He has history of coronary artery bypass surgery and recent diagnosis of cardiomyopathy. He has avoid left bundle-branch block. He has been on guideline directed medical therapy with improvement in ejection fraction to 30 35%. He has primary prevention ICD indication. I have discussed with electrophysiology in previously and we will implant ELECTRONIC SCANNER OPERATOR D. Continue same medications otherwise. Occ asional chest discomfort which is short lived. Otherwise active with cardiac rehabilitation and doing well. He feels that he is stronger than before. Clinically euvolemic. Thank you for allowing me to participate in the care of your patient. Please feel free to contact me if you have any questions. Coding Level of Care Code Est Pt Level 3 (20738) Diagnoses Stable angina I20.8 LBBB (left bundle branch block) I44.7 Cardiomyopathy I42.9
== END 2023-04-30 09:37 | disposition home or self-care (01) ==
PROVIDERS: PCP Hospitalist; Visit Provider Internal Medicine Cardiovascular Disease
DX: I20.8 Other forms of angina pectoris (principal); I44.7 Left bundle-branch block, unspecified; I42.9 Cardiomyopathy, unspecified
CPT/HCPCS: 99213

== ENCOUNTER → 2023-04-30 09:02 | Outpatient (BNVA) | payer OTHER, MEDICAID, SELFPAY ==
[2023-04-30 09:03] VITALS: BP 112/58; BP 118/58; BMI 26.1
== END ==
PROVIDERS: PCP Hospitalist; Visit Provider Internal Medicine Cardiovascular Disease

== ENCOUNTER → 2023-07-01 23:59 | Outpatient (BNV) | payer OTHER, MEDICAID, SELFPAY ==
[2023-06-24 10:52] VITALS: BP 112/58; BP 118/58; BMI 26.1
--- NOTE | 2023-07-14 13:47 | A.OFFVIS_ITS ---
Intake Intake Visit Reasons: Remote ICD Check- [employer]tr[employer] Allergies No Known Allergies Allergy (Verified 04/30/23 09:13) [facility] Medical History CAD (coronary artery disease) Cerebrovascular accident (CVA) determined by clinical assessment Essential hypertension GERD (gastroesophageal reflux disease) Gout Hyperlipidemia LDL goal <70 PAD (peripheral artery disease) Screening for colon cancer Screening for prostate cancer Type 2 diabetes mellitus with diabetic polyneuropathy Type 2 diabetes mellitus with hyperglycemia, with long-term current use of insulin Type 2 diabetes mellitus with hypoglycemia Vitamin D deficiency Surgical History Hx of removal of cyst History of open heart surgery Family History Father CVD (cardiovascular disease) Mother CVD (cardiovascular disease) Social History Household Members: Family Housing: House Alcohol intake: never Patient Tobacco Use Status: Never used Tobacco e-Cigarette/Vaping Use: Never Used Second Hand Smoke Exposure: No service: No Current occupational status: retired Cognitive needs: No Hearing needs: No Vision needs: No Office Procedures Cardiac Device Check Cardiac Device Check Details: [employer]onic MEDICAL DATA ENTRY CLERK D. Battery life 7.6 years. No new alerts. V- pacing 99.9%. [id number] Cardiac Device Interrogation, pacemaker or defibrillator Procedure code (CPT) selection complete Assessment & Plan Assessment & Plan (1) Cardiomyopathy: Code(s): I42.9 - Cardiomyopathy, unspecified Plan: Coding Level of Care Code Procedure Only Diagnoses Cardiomyopathy I42.9 CPT Codes Cardiac Device Check - Cardiac Device 14: [id number] Cardiac Device Interrogation, pacemaker or defibrillator ([id number])
== END ==
PROVIDERS: PCP Hospitalist; Visit Provider Internal Medicine Cardiovascular Disease
DX: I42.9 Cardiomyopathy, unspecified (principal); Z95.810 Presence of automatic (implantable) cardiac defibrillator
CPT/HCPCS: 93295

== ENCOUNTER → 2023-07-01 23:59 | Outpatient (BNV) | payer OTHER, MEDICAID, SELFPAY ==
[2023-06-24 10:52] VITALS: BP 112/58; BP 118/58; BMI 26.1
--- NOTE | 2023-07-14 13:42 | A.OFFVIS_ITS ---
Intake Intake Visit Reasons: Remote HF Monitoring- Medtr[employer] Allergies No Known Allergies Allergy (Verified 04/30/23 09:13) [facility] Medical History CAD (coronary artery disease) Cerebrovascular accident (CVA) determined by clinical assessment Essential hypertension GERD (gastroesophageal reflux disease) Gout Hyperlipidemia LDL goal <70 PAD (peripheral artery disease) Screening for colon cancer Screening for prostate cancer Type 2 diabetes mellitus with diabetic polyneuropathy Type 2 diabetes mellitus with hyperglycemia, with long-term current use of insulin Type 2 diabetes mellitus with hypoglycemia Vitamin D deficiency Surgical History Hx of removal of cyst History of open heart surgery Family History Father CVD (cardiovascular disease) Mother CVD (cardiovascular disease) Social History Household Members: Family Housing: House Alcohol intake: never Patient Tobacco Use Status: Never used Tobacco e-Cigarette/Vaping Use: Never Used Second Hand Smoke Exposure: No service: No Current occupational status: retired Cognitive needs: No Hearing needs: No Vision needs: No Office Procedures Cardiac Device Check Cardiac Device Check Details: Medtronic TAILOR FITTER D Heart failure management V pacing 99.9%. Stable thoracic impedance. [id number] Cardiac Device Interrogation, cardio physiologic monitor Procedure code (CPT) selection complete Assessment & Plan Assessment & Plan (1) Cardiomyopathy: Code(s): I42.9 - Cardiomyopathy, unspecified Plan: Coding Level of Care Code Procedure Only Diagnoses Cardiomyopathy I42.9 CPT Codes Cardiac Device Check - Cardiac Device 15: [id number] Cardiac Device Interrogation, cardio physiologic monitor ([id number])
== END ==
PROVIDERS: PCP Hospitalist; Visit Provider Internal Medicine Cardiovascular Disease
DX: I42.9 Cardiomyopathy, unspecified (principal); Z95.810 Presence of automatic (implantable) cardiac defibrillator
CPT/HCPCS: 93297

== ENCOUNTER → 2023-08-01 23:59 | Outpatient (BNV) | payer OTHER, MEDICAID, SELFPAY ==
[2023-06-24 10:52] VITALS: BP 112/58; BP 118/58; BMI 26.1
--- NOTE | 2023-08-27 11:52 | MHC.OFFVIS ---
Intake Intake Visit Reasons: Remote HF Monitoring- [employer] Allergies No Known Allergies Allergy (Verified 04/30/23 09:13) [facility] Medical History (Updated 08/11/23 @ 10:29 by Anita Noble MA) Pacemaker Cerebrovascular accident (CVA) determined by clinical assessment Screening for prostate cancer Screening for colon cancer PAD (peripheral artery disease) Type 2 diabetes mellitus with hypoglycemia Gout CAD (coronary artery disease) GERD (gastroesophageal reflux disease) Type 2 diabetes mellitus with hyperglycemia, with long-term current use of insulin Type 2 diabetes mellitus with diabetic polyneuropathy Hyperlipidemia LDL goal <70 Vitamin D deficiency Essential hypertension Surgical History Hx of removal of cyst History of open heart surgery Family History (Updated 08/11/23 @ 10:30 by Anita Noble MA) Mother CVD (cardiovascular disease) Father No problems noted. 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 Heart failure monitoring. Stable thoracic impedance. [id number] Cardiac Device Interrogation, cardio physiologic monitor Procedure code (CPT) selection complete Assessment & Plan Assessment & Plan (1) Cardiomyopathy: Code(s): I42.9 - Cardiomyopathy, unspecified Plan: Coding Level of Care Code Procedure Only Diagnoses Cardiomyopathy I42.9 CPT Codes Cardiac Device Check - Cardiac Device 15: [id number] Cardiac Device Interrogation, cardio physiologic monitor ([id number])
== END ==
PROVIDERS: PCP Hospitalist; Visit Provider Internal Medicine Cardiovascular Disease
DX: I42.9 Cardiomyopathy, unspecified (principal)
CPT/HCPCS: 93297

== ENCOUNTER 2023-08-11 10:10 | Outpatient (AMB) | payer OTHER, MEDICAID, SELFPAY ==
[2023-06-24 10:52] VITALS: BP 112/58; BP 118/58; BMI 26.1
[2023-08-11 10:22] VITALS: BP 120/70; PULSE 91; BMI 25.1
--- NOTE | 2023-08-11 10:22 | A.OFFVIS_ITS ---
Intake Vital Signs 08/11/23 10:22 Height 5 ft 7 in Weight 160 lb 7.944 oz BMI 25.1 BP 120/70 Blood Pressure Location Rt brachial Position Sitting Pulse 91 Pulse Source Pulse Oximeter Intake Visit Reasons: 3 mth f/up Intake Note: pt its here for a 3 mnth f/up pt states that he its doing fine. 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 Accompanied by: Son Allergies No Known Allergies Allergy (Verified 04/30/23 09:13) Medication List - Last Reconciled 08/11/23 by Shashank Martell MD acetaminophen (Tylenol Extra Strength) 1,000 mg PO QPM PRN acetaminophen ER (Mapap Arthritis Pain) 1,300 mg PO Q12H PRN apixaban (Eliquis) 5 mg PO BID 90 days aspirin (Adult Low Dose Aspirin) 81 mg PO DAILY atorvastatin 40 mg PO DAILY blood sugar diagnostic (Accu-Chek Nelly Plus test strips) 4 x/day carvedilol 12.5 mg PO BID 90 days cholecalciferol (vitamin D3) 25 mcg PO DAILY docusate sodium 100 mg PO BID dulaglutide (Trulicity) mg subcut QWEEK dulaglutide (Trulicity) mg subcut fluticasone propionate 50 mcg/actuation 1 spray intranasal DAILY gabapentin 300 mg PO TID insulin degludec (Tresiba FlexTouch U-100 insulin) 24 units subcut DAILY insulin lispro (Humalog KwikPen (U-100) Insulin) 4 - 6 units (0.04 - 0.06 mL) subcut TID isosorbide mononitrate ER 30 mg PO DAILY levocetirizine 5 mg PO QPM metformin 1,000 mg PO BID nitroglycerin 0 mg sublingual omeprazole 20 mg PO BID sacubitril-valsartan 24-26 mg (Entresto) 1 tab PO BID 90 days tamsulosin 0.4 mg PO DAILY HPI HPI Comments History of Present Illness Details Pleasant 73-year-old gentleman is here for 1st office visit. He has background history of coronary artery bypass surgery which was performed in 2005. It appears he had BATEMAN to LAD, saphenous vein graft to OM1 and radial graft to OM3. There was no graft placed to the right coronary artery. It a ppears he got admitted to hospital with urinary retention and eventually developed chest discomfort and echocardiography nuclear perfusion imaging was performed. ECHO showed EF of 15-20% with global hypokinesis and nuclear stress test was more consistent with fixed anterior perfusion defect consistent with scar. He underwent cardiac catheterization at that time which showed that his vein graft to om 1 and om 2 are both patent. He had a chronic total occlusion of the right coronary artery. He had severe proximal and distal LAD stenosis of 80-90%. Proximal 2nd diagonal has 90% stenosis. Left main 35% stenosis. Om 1 and OM 2 both are 99% and 95% stenosis. It appears he was medically treated and sent home with guideline directed medical therapy. His EKG also showed first- degree AV block and left bundle-branch block. He has been doing cardiac rehabilitation and it appears he has been progressing there. Off and on he has noticed some right-sided chest pain which gets for severe presses his chest wall. I think this is musculoskeletal pain. His additional anginal discomfort was a center pressure-like feeling. He returns and his medications are different. It appears he had a prescription given to him through his primary care office of lisinopril 2.5 mg. He is also taking Entresto and there is a serious reaction between the 2 medications. I have advised him to stop the lisinopril and we have reached out to the physician's office to make sure that lisinopril will script is canceled. His blood pressure is a little low but he is not dizzy or lightheaded. He seems to be progressing at a cardiac rehab which is a good sign. He was previous also on apixaban for paroxysmal atrial fibrillation but he returns and is off apixaban. He is not sure why it was stopped. His recent echocardiography has shown moderate LV dysfunction with EF of 30 35%. He has avoided left bundle-branch block. 01/22/23: He returns for follow-up. He h as been exercising at cardiac rehab and doing well. Repeat echocardiography which was a limited echo showed EF of 30 35%. Tolerating medications and taking them regularly. 04/30/23: Returns for follow-up. He waters s been doing fine with cardiac rehabilitation. Occasionally gets chest discomfort. Blood pressure is normal. Previously was referred for PHARMACY CLERK D. It appears there has been some communication issues between electrophysiology and Mr. Kohli. I will look into this. Overall he has been stable. 08/11/23: He returns for follow-up. He is status post Bi V AICD placement. Clinically has been stable. No chest discomfort shortness of breath. He had urinary tract infection which delayed his procedure and at that time we stopped the Jardiance because of risk of UTI associated with Jardiance. He has been doing well with current medications. [facility] Medical History (Updated 08/11/23 @ 10:29 by Anita Noble MA) Pacemaker Cerebrovascular accident (CVA) determined by clinical assessment Screening for prostate cancer Screening for colon cancer PAD (peripheral artery disease) Type 2 diabetes mellitus with hypoglycemia Gout CAD (coronary artery disease) GERD (gastroesophageal reflux disease) Type 2 diabetes mellitus with hyperglycemia, with long-term current use of insulin Type 2 diabetes mellitus with diabetic polyneuropathy Hyperlipidemia LDL goal <70 Vitamin D deficiency Essential hypertension Surgical History Hx of removal of cyst History of open heart surgery Family History (Updated 08/11/23 @ 10:30 by Anita Noble MA) Mother CVD (cardiovascular disease) Father No problems noted. Other Pacemaker Social History Household Members: Family Housing: House Alcohol intake: never Patient Tobacco Use Status: Never used Tobacco e-Cigarette/Vaping Use: Never Used Second Hand Smoke Exposure: No service: No Current occupational status: retired Cognitive needs: No Hearing needs: No Vision needs: No Physical Exam Vital Signs: Last Vital Signs Pulse 91 08/11/23 10:22 BP 120/70 08/11/23 10:22 BMI result Body Mass Index 25.1 GENERAL APPEARANCE: in no acute distress, pleasant. NECK: no carotid bruit, no jugular venous distention. SKIN: no suspicious lesions, warm and dry. HEART: Systolic murmur aortic area with preserved 2nd heart sound, regular rate and rhythm. LUNGS: clear to auscultation bilaterally. ABDOMEN: soft, nontender. EXTREMITIES: no edema. PERIPHERAL PULSES: equal. NEUROLOGIC: No gross deficits, AAO X 3 Assessment & Plan Assessment & Plan (1) Stable angina: Code(s): I20.8 - Other forms of angina pectoris (2) Cardiomyopathy: Code(s): I42.9 - Cardiomyopathy, unspecified Plan [age] year gentleman who is here for follow-up. He has history of coronary disease with previous bypass surgery. He was diagnosed with severe cardiomyopathy and on medical management EF improved to 30 35%. He had a wide left bundle-branch block and underwent PHARMACY CLERK-D in May 2023. He has done well since then. Had a urinary tract infection while taking Jardiance and Jardiance has been held. He is still has significant urinary complaints including incontinence. I have advised him to continue to hold Jardiance for now. We will repeat echocardiography to reassess the ejection fraction. I am hopeful that his ejection fraction will improve with PHARMACY CLERK D. If there is no change in ejection fraction then I will consider adding Jardiance back with close monitoring of his urinary symptoms. Thank you for allowing me to participate in the care of your patient. Please feel free to contact me if you have any questions. Orders: Orders CA echo transthoracic complete Today I42.9 - Cardiomyopathy, unspecified Coding Level of Care Code Est Pt Level 4 (17397) Diagnoses Stable angina I20.8 Cardiomyopathy I42.9
== END 2023-08-11 10:50 | disposition home or self-care (01) ==
PROVIDERS: PCP Hospitalist; Visit Provider Internal Medicine Cardiovascular Disease
DX: I20.89 Other forms of angina pectoris (principal); I42.9 Cardiomyopathy, unspecified
CPT/HCPCS: 99214

== ENCOUNTER → 2023-08-11 10:10 | Outpatient (BNVA) | payer OTHER, MEDICAID, SELFPAY ==
[2023-06-24 10:52] VITALS: BP 112/58; BP 118/58; BMI 26.1
== END ==
PROVIDERS: PCP Hospitalist; Visit Provider Internal Medicine Cardiovascular Disease

== ENCOUNTER → 2023-09-01 23:59 | Outpatient (BNV) | payer OTHER, SELFPAY ==
[2023-06-24 10:52] VITALS: BP 112/58; BP 118/58; BMI 26.1
--- NOTE | 2023-09-21 20:31 | A.OFFVIS_ITS ---
Intake Intake Visit Reasons: Remote HF Monitoring- [employer] Allergies No Known Allergies Allergy (Verified 04/30/23 09:13) FORMERLY [facility] Medical History (Updated 08/11/23 @ 10:29 by Anita Noble MA) Pacemaker Cerebrovascular accident (CVA) determined by clinical assessment Screening for prostate cancer Screening for colon cancer PAD (peripheral artery disease) Type 2 diabetes mellitus with hypoglycemia Gout CAD (coronary artery disease) GERD (gastroesophageal reflux disease) Type 2 diabetes mellitus with hyperglycemia, with long-term current use of insulin Type 2 diabetes mellitus with diabetic polyneuropathy Hyperlipidemia LDL goal <70 Vitamin D deficiency Essential hypertension Surgical History Hx of removal of cyst History of open heart surgery Family History (Updated 08/11/23 @ 10:30 by Anita Noble MA) Mother CVD (cardiovascular disease) Father No problems noted. Other Pacemaker Social History Household Members: Family Housing: House Alcohol intake: never Patient Tobacco Use Status: Never used Tobacco e-Cigarette/Vaping Use: Never Used Second Hand Smoke Exposure: No service: No Current occupational status: retired Cognitive needs: No Hearing needs: No Vision needs: No Office Procedures Cardiac Device Check Cardiac Device Check Details: HF monitoring Good battery life. Optivol showing ongoing fluid overload. [id number] Cardiac Device Interrogation, cardio physiologic monitor Procedure code (CPT) selection complete Assessment & Plan Assessment & Plan (1) Cardiomyopathy: Code(s): I42.9 - Cardiomyopathy, unspecified Plan: Coding Level of Care Code Procedure Only Diagnoses Cardiomyopathy I42.9 CPT Codes Cardiac Device Check - Cardiac Device 15: [id number] Cardiac Device Interrogation, cardio physiologic monitor ([id number])
== END ==
PROVIDERS: PCP Hospitalist; Visit Provider Internal Medicine Cardiovascular Disease
DX: I42.9 Cardiomyopathy, unspecified (principal); Z95.810 Presence of automatic (implantable) cardiac defibrillator
CPT/HCPCS: 93297

== ENCOUNTER → 2023-09-03 15:56 | Outpatient (REF) | payer OTHER, SELFPAY ==
[2023-06-24 10:52] VITALS: BP 112/58; BP 118/58; BMI 26.1
--- NOTE | 2023-09-03 16:04 | CA_ITS ---
Transthoracic Echocardiogram Patient (Last, First, Middle): Keren Kohli R Gender: Male Date of : 1950 Age: 73 Procedure Date: 09/03/2023 Procedure Type: Transthoracic Echocardiogram Location: OP Height: 170.18 cm Weight: 74.39 kg BSA: 1.86 m2 Heart Rate: bpm BP: 120 / 66 mmHg Facilities Locator: Referring MD: Shashank Martell MD Symptoms: I42.9 - Cardiomyopathy, unspecified Study Quality: Adequate w Contrast ECG Rhythm: Ventriculary paced rhythm Conclusions: - The left ventricular systolic function is moderate to severely decreased. The calculated ejection fraction is 31% by biplane method. - Wall motion abnormalities related to underlying coronary artery disease. - No obvious valvular pathology seen on this study. Findings Procedure Information Contrast agent, definity, is being given per protocol without apparent complications. Left Ventricle Normal left ventricular cavity size. There is mildly increased left ventricular wall thickness. The left ventricular systolic function is moderate to severely decreased. The calculated ejection fraction is 31% by biplane method. Evidence suggests grade I (mild) diastolic dysfunction. Wall Motion Rest Echo Findings The mid inferior segment is hypokinetic. The apical anterior, apical inferior, basal inferior, apical septum, and mid anteroseptal segments are akinetic. Right Ventricle Mildly increased right ventricular cavity size. Atria The left atrium is mildly dilated. The right atrium is normal in size. Aortic Valve There is mild calcification of the aortic valve. There is no aortic valve stenosis. There is no aortic valve regurgitation. Mitral Valve There is mild mitral annular calcification. There is trace mitral valve regurgitation. There is no mitral valve stenosis. Pulmonic Valve The pulmonic valve is likely normal. Tricuspid Valve There is trace tricuspid valve regurgitation. There is no evidence of pulmonary hypertension. Great Vessels The asc aorta is normal in size. Venous The inferior vena cava was not well visualized. Pericardium/Pleural There is no evidence of pericardial effusion. Prior Study Comparison No significant change compared to prior study dated: 01/13/2023. Recommendations, Care & Conclusions No obvious valvular pathology seen on this study. Measurements 2D Linear Measurements RVIDd: 3.92 RVIDd Index: 2.11 IVSd: 1.32 0.6-0.9/0.6-1.0 cm LVIDd: 4.76 3.9-5.3/4.2-5.9 cm LVIDd Index: 2.56 2.4-3.2/2.2-3.1 cm/m2 LVIDs: 4.07 2.0-3.6 cm LVPWd: 1.23 0.7-1.1 cm Ao Root: 3.20 2.1-3.5 cm LA Diam: 4.50 2.7-3.8/3.0-4.0 cm LAIDs Index: 2.42 1.5-2.3 cm/m2 LV Mass: 294.08 67-162/88-224 g LV Mass Index: 158.11 43-95/49-115 g/m2 LVOT Diam: 2.30 3.0+(-)1.3 cm 2D Systolic Function EF 4C: 35.00 >55% EF 2C: 29.50 >55% EF BiP: 30.60 >55% Mitral Valve MV Pk E: 0.98 MV PK A: 1.00 MV Decel Time: 175.00 E/A: 1.00 E'Lateral: 7.62 E'Medial: 3.81 E/E' Med: 25.70 E/E' Lat: 12.80 PHT: 51.00 MVA PHT: 4.31 Decel [place]: 5.61 Aortic Valve AoV Pk Brian: 1.65 AoV Mn Brian: 1.03 AoV VTI: 0.38 AoV Pk Grad: 11.00 Aov Mn Grad: 5.00 ARMAND Cont.VTI: 2.86 LVOT LVOT Pk Brian: 1.04 LVOT Mn Brian: 0.73 LVOT VTI: 0.26 LVOT Pk Grad: 4.00 LVOT Mn Grad: 2.00 LVOT Diam: 2.30 LVOT Area: 4.15 Diastolic Function MV Pk E: 0.98 MV Pk A: 1.00 E/A: 1.00 E'Medial: 3.81 E/E' Med: 25.70 E' Laterial: 7.62 E/E' Lat: 12.80 Tricuspid Valve TR Pk Brian: 1.59 TR Pk Grad: 10.00 Great Vessels Aorta Ao Root-2D: 3.20 2.0-3.7 cm Ao Asc: 3.20 2.1-3.4 cm Pulmonary Valve PV Pk Brian: 0.88 Peak PV Grad: 3.00 Updated in Other Vendor System with Status of Final Cisco Hill MD electronically signed on 09/05/2023 11:36:52 AM with status of Final
== END ==
LOC: HO.CARD 15:56
PROVIDERS: PCP Hospitalist; Visit Provider Internal Medicine Cardiovascular Disease
DX: I42.9 Cardiomyopathy, unspecified (principal)
CPT/HCPCS: 93306; Q9957

== ENCOUNTER → 2023-09-03 16:04 | Outpatient (BNV) | payer OTHER, SELFPAY ==
[2023-06-24 10:52] VITALS: BP 112/58; BP 118/58; BMI 26.1
== END ==
PROVIDERS: PCP Hospitalist; Visit Provider Internal Medicine
DX: I42.9 Cardiomyopathy, unspecified (principal)
CPT/HCPCS: 93306

== ENCOUNTER → 2023-10-02 23:59 | Outpatient (BNV) | payer OTHER, SELFPAY ==
[2023-06-24 10:52] VITALS: BP 112/58; BP 118/58; BMI 26.1
--- NOTE | 2023-10-20 10:46 | A.OFFVIS_ITS ---
Intake Visit Reasons: Remote HF monitoring- [employer] Allergies No Known Allergies Allergy (Verified 04/30/23 09:13) [facility] Medical History (Updated 08/11/23 @ 10:29 by Anita Noble MA) Pacemaker Cerebrovascular accident (CVA) determined by clinical assessment Screening for prostate cancer Screening for colon cancer PAD (peripheral artery disease) Type 2 diabetes mellitus with hypoglycemia Gout CAD (coronary artery disease) GERD (gastroesophageal reflux disease) Type 2 diabetes mellitus with hyperglycemia, with long-term current use of insulin Type 2 diabetes mellitus with diabetic polyneuropathy Hyperlipidemia LDL goal <70 Vitamin D deficiency Essential hypertension Surgical History Hx of removal of cyst History of open heart surgery Family History (Updated 08/11/23 @ 10:30 by Anita Noble MA) Mother CVD (cardiovascular disease) Father No problems noted. Other Pacemaker Social History Household Members: Family Housing: House Alcohol intake: never Patient Tobacco Use Status: Never used Tobacco e-Cigarette/Vaping Use: Never Used Second Hand Smoke Exposure: No service: No Current occupational status: retired Cognitive needs: No Hearing needs: No Vision needs: No Office Procedures Cardiac Device Check Cardiac Device Check Details: HF monitoring OptiVol was showing ongoing volume overload till mid September but showing improving volume status now. [id number] Cardiac Device Interrogation, cardio physiologic monitor Procedure code (CPT) selection complete Assessment & Plan Assessment & Plan (1) Cardiomyopathy: Code(s): I42.9 - Cardiomyopathy, unspecified Category: Medical Plan Coding Level of Care Code Procedure Only Diagnoses Cardiomyopathy I42.9 CPT Codes Cardiac Device Check - Cardiac Device 15: [id number] Cardiac Device Interrogation, cardio physiologic monitor ([id number])
== END ==
PROVIDERS: PCP Hospitalist; Visit Provider Internal Medicine Cardiovascular Disease
DX: I42.9 Cardiomyopathy, unspecified (principal); Z95.810 Presence of automatic (implantable) cardiac defibrillator
CPT/HCPCS: 93297

== ENCOUNTER → 2023-10-02 23:59 | Outpatient (BNV) | payer OTHER, SELFPAY ==
[2023-06-24 10:52] VITALS: BP 112/58; BP 118/58; BMI 26.1
--- NOTE | 2023-10-20 10:57 | MHC.OFFVIS ---
Intake Visit Reasons: Remote ICD check- [employer] Allergies No Known Allergies Allergy (Verified 04/30/23 09:13) [facility] Medical History (Updated 08/11/23 @ 10:29 by Anita Noble MA) Pacemaker Cerebrovascular accident (CVA) determined by clinical assessment Screening for prostate cancer Screening for colon cancer PAD (peripheral artery disease) Type 2 diabetes mellitus with hypoglycemia Gout CAD (coronary artery disease) GERD (gastroesophageal reflux disease) Type 2 diabetes mellitus with hyperglycemia, with long-term current use of insulin Type 2 diabetes mellitus with diabetic polyneuropathy Hyperlipidemia LDL goal <70 Vitamin D deficiency Essential hypertension Surgical History Hx of removal of cyst History of open heart surgery Family History (Updated 08/11/23 @ 10:30 by Anita Noble MA) Mother CVD (cardiovascular disease) Father No problems noted. 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 Good battery life. V paced 99.9%. No new alerts. [id number] Cardiac Device Interrogation, pacemaker or defibrillator Procedure code (CPT) selection complete Assessment & Plan Assessment & Plan (1) Cardiomyopathy: Code(s): I42.9 - Cardiomyopathy, unspecified Category: Medical Plan Coding Level of Care Code Procedure Only Diagnoses Cardiomyopathy I42.9 CPT Codes Cardiac Device Check - Cardiac Device 14: [id number] Cardiac Device Interrogation, pacemaker or defibrillator ([id number])
== END ==
PROVIDERS: PCP Hospitalist; Visit Provider Internal Medicine Cardiovascular Disease
DX: I42.9 Cardiomyopathy, unspecified (principal); Z95.810 Presence of automatic (implantable) cardiac defibrillator
CPT/HCPCS: 93295

== ENCOUNTER 2023-10-20 08:27 | Outpatient (REF) | payer OTHER, SELFPAY ==
[2023-06-24 10:52] VITALS: BP 112/58; BP 118/58; BMI 26.1
[2023-10-20 09:21] LABS: Estimated Average Glucose 180 mg/dL; Hemoglobin A1c % 7.9 % (<6.0)
[2023-10-20 09:52] LABS: Cholesterol 107 mg/dL (<200); Glucose Fasting 136 mg/dL (60-99); HDL Cholesterol 35 mg/dL (>40); LDL Cholesterol Calculated 46 mg/dL (<100); Triglycerides 131 mg/dL (<150)
== END 2023-10-20 08:28 | disposition home or self-care (01) ==
LOC: HO.LAB 08:27
PROVIDERS: Visit Provider Hospitalist
DX: E11.3293 Type 2 diabetes mellitus with mild nonproliferative diabetic retinopathy without macular edema, bilateral (principal); E78.2 Mixed hyperlipidemia
CPT/HCPCS: 36415; 80061; 82947; 83036

== ENCOUNTER 2023-10-27 09:22 | Outpatient (AMB) | payer OTHER, SELFPAY ==
[2023-06-24 10:52] VITALS: BP 112/58; BP 118/58; BMI 26.1
[2023-10-27 09:39] VITALS: BP 120/72; PULSE 76; BMI 26.3
--- NOTE | 2023-10-27 09:39 | A.OFFVIS_ITS ---
Vital Signs 10/27/23 09:39 Height 5 ft 7 in Weight 167 lb 15.876 oz BMI 26.3 BP 120/72 Blood Pressure Location Rt brachial Position Sitting Pulse 76 Pulse Source Pulse Oximeter Intake Visit Reasons: f/up-per KM Bacon Skinner Required: No Cupola Melter Helper: Cupola Melter Helper Present Allergies No Known Allergies Allergy (Verified 10/27/23 09:42) Medication List - Last Reconciled 10/27/23 by RADHA Alba acetaminophen (Tylenol Extra Strength) 1,000 mg PO QPM PRN acetaminophen ER (Mapap Arthritis Pain) 1,300 mg PO Q12H PRN apixaban (Eliquis) 5 mg PO BID 90 days aspirin (Adult Low Dose Aspirin) 81 mg PO DAILY atorvastatin 40 mg PO DAILY blood sugar diagnostic (Accu-Chek Nelly Plus test strips) 4 x/day carvedilol 12.5 mg PO BID 90 days cholecalciferol (vitamin D3) 25 mcg PO DAILY docusate sodium 100 mg PO BID dulaglutide (Trulicity) mg subcut QWEEK dulaglutide (Trulicity) mg subcut fluticasone propionate 50 mcg/actuation 1 spray intranasal DAILY gabapentin 300 mg PO TID insulin degludec (Tresiba FlexTouch U-100 insulin) 24 units subcut DAILY insulin lispro (Humalog KwikPen (U-100) Insulin) 4 - 6 units (0.04 - 0.06 mL) subcut TID isosorbide mononitrate ER 30 mg PO DAILY levocetirizine 5 mg PO QPM metformin 1,000 mg PO BID nitroglycerin 0 mg sublingual omeprazole 20 mg PO BID sacubitril-valsartan 24-26 mg (Entresto) 1 tab PO BID 90 days tamsulosin 0.4 mg PO DAILY HPI HPI f/up-per KM: Details: Laron is a 73-year-old male with past medical history of hypertension, hyperlipidemia, diabetes, peripheral artery disease, CVA, cardiomyopathy, left bundle branch block, CAD, Bi V ICD who presents for follow-up after recent echocardiogram. Today he reports he has been feeling well with no concerning symptoms. Denies having chest discomfort at rest or with activity. He denies shortness of breath, PND, orthopnea or edema. No lightheadedness, presyncope, syncope, falls. Takes all meds as directed. Son is present. REPLACED BY [facility] Medical History (Updated 10/27/23 @ 13:17 by Astrid Perkins NP-C) Pacemaker Cerebrovascular accident (CVA) determined by clinical assessment Screening for prostate cancer Screening for colon cancer PAD (peripheral artery disease) Type 2 diabetes mellitus with hypoglycemia Gout CAD (coronary artery disease) GERD (gastroesophageal reflux disease) Type 2 diabetes mellitus with hyperglycemia, with long-term current use of insulin Type 2 diabetes mellitus with diabetic polyneuropathy Hyperlipidemia LDL goal <70 Vitamin D deficiency Essential hypertension Surgical History Hx of removal of cyst History of open heart surgery Family History Mother CVD (cardiovascular disease) Father No problems noted. Other Pacemaker Social History Household Members: Family Housing: House Alcohol intake: never Patient Tobacco Use Status: Never used Tobacco e-Cigarette/Vaping Use: Never Used Second Hand Smoke Exposure: No service: No Current occupational status: retired Cognitive needs: No Hearing needs: No Vision needs: No Review of Systems Const All systems reviewed & are unremarkable except as noted in HPI and below ENT Denies dizziness Card Details: mild ankle swelling Denies chest pain, Denies chest pain at rest, Denies chest pain with activity, Denies rapid heart rate, Denies pedal edema, Denies edema, Denies leg edema, Denies lightheadedness, Denies palpitations, Denies dyspnea, Denies dyspnea on exertion and Denies orthopnea Resp Denies cough, Denies dyspnea and Denies dyspnea on exertion GI Denies hematochezia and Denies change in stool character Musc Details: Knee issues - use cane Denies abnormal gait, Denies limited range of motion, Denies muscle cramps, Denies muscle weakness, Denies numbness, Denies radiating pain into limb, Denies stiffness and Denies tingling Neuro Denies abnormal gait, Denies dizziness, Denies numbness and Denies tingling Endo Denies palpitations Physical Exam Vital Signs: Last Vital Signs Pulse 76 10/27/23 09:39 BP 120/72 10/27/23 09:39 BMI result Body Mass Index 26.3 Const General: cooperative, healthy appearing, comfortable and no acute distress Orientation/consciousness: patient oriented x3 Neck Neck: Yes normal visual inspection and Yes no JVD Resp Effort & Inspection: normal respiratory effort Auscultation: clear to auscultation bilaterally, no crackles, no rales, no rhonchi and no wheezes Cardio Jugular venous distension: no JVD Rate: regular rate Rhythm: regular rhythm Heart sounds: S1 normal heart sound present, S2 normal heart sound present, no murmurs and no rubs Neuro General: patient oriented x3 Extrem Other: trace ankle edema General: Yes normal to inspection, No no pedal edema and No calf tenderness Psych Appearance: grossly normal Mental Status: mental status grossly normal Speech and movement: Normal speech and movement present Assessment & Plan Assessment & Plan (1) Cardiomyopathy: Code(s): I42.9 - Cardiomyopathy, unspecified Category: Medical Plan: Known history of CAD with prior coronary artery bypass grafting in 2005. History of cardiomyopathy with EF as low as 15-20%, ischemic. 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 A Bi V ICD was placed. His echocardiogram was done on 09/03/2023 showing EF 31%, wall motion abnormalities related to underlying coronary artery disease. Overall EF was unchanged from his last echo 01/13/2023 which showed EF 30-35%. On exam today he has no clinical signs of decompensated heart failure. Will have him continue on med management with aspirin, ator vastatin with ideal LDL goal less than 70. Continue carvedilol and Entresto for neurohormonal modulation. Continue isosorbide. He had been on Jardiance however developed UTI and incontinence. Unclear if it was related to the medication. Medicine was stopped. At this time he has no urological issues. Will check with Dr. Martell regarding potential restart of Jardiance. Signs and symptoms of heart failure reviewed with him in detail. Signs and symptoms of angina discussed. Emergency care if ever needed for symptoms. Cardiology follow-up in 3 months, sooner if needed. (2) CAD (coronary artery disease): Comment: s/p CABG BATEMAN to LAD, SVG to OM1 and radial graft to OM 3. 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 Functioning normally on last interrogation. Will arrange for office device check on next visit. Has remote monitoring in use. (5) Essential hypertension: Code(s): I10 - Essential (primary) hypertension Category: Medical Plan: Well controlled at this time. No med changes made. Plan Time spent on chart review, documentation, interview and assessment Coding Level of Care Code Est Pt Level 4 (41799) Diagnoses Cardiomyopathy I42.9 CAD (coronary artery disease) I25.10 LBBB (left bundle branch block) I44.7 ICD (implantable cardioverter-defibrillator), biventricular, in situ Z95.810 Essential hypertension I10 Time Spent (min) 36
== END 2023-10-27 10:06 | disposition home or self-care (01) ==
PROVIDERS: PCP Hospitalist; Visit Provider Nurse Practitioner Family
DX: I42.9 Cardiomyopathy, unspecified (principal); I25.10 Atherosclerotic heart disease of native coronary artery without angina pectoris; I44.7 Left bundle-branch block, unspecified; Z95.810 Presence of automatic (implantable) cardiac defibrillator; I10 Essential (primary) hypertension
CPT/HCPCS: 99214

== ENCOUNTER → 2023-10-27 09:22 | Outpatient (BNVA) | payer OTHER, SELFPAY ==
[2023-06-24 10:52] VITALS: BP 112/58; BP 118/58; BMI 26.1
== END ==
PROVIDERS: PCP Hospitalist; Visit Provider Nurse Practitioner Family

== ENCOUNTER → 2023-11-02 23:59 | Outpatient (BNV) | payer OTHER, SELFPAY ==
[2023-06-24 10:52] VITALS: BP 112/58; BP 118/58; BMI 26.1
--- NOTE | 2023-11-09 15:17 | A.OFFVIS_ITS ---
Intake Visit Reasons: Remote HF monitoring- Medtronic Allergies No Known Allergies Allergy (Verified 10/27/23 09:42) [facility] Medical History (Updated 10/27/23 @ 13:17 by Astrid Perkins NP-C) Pacemaker Cerebrovascular accident (CVA) determined by clinical assessment Screening for prostate cancer Screening for colon cancer PAD (peripheral artery disease) Type 2 diabetes mellitus with hypoglycemia Gout CAD (coronary artery disease) GERD (gastroesophageal reflux disease) Type 2 diabetes mellitus with hyperglycemia, with long-term current use of insulin Type 2 diabetes mellitus with diabetic polyneuropathy Hyperlipidemia LDL goal <70 Vitamin D deficiency Essential hypertension Surgical History Hx of removal of cyst History of open heart surgery Family History Mother CVD (cardiovascular disease) Father No problems noted. Other Pacemaker Social History Household Members: Family Housing: House Alcohol intake: never Patient Tobacco Use Status: Never used Tobacco e-Cigarette/Vaping Use: Never Used Second Hand Smoke Exposure: No service: No Current occupational status: retired Cognitive needs: No Hearing needs: No Vision needs: No Office Procedures Cardiac Device Check Cardiac Device Check Details: HF monitoring Optivol is showing improving volume status. [id number] Device Interrogation, cardiac physiologic monitor system Procedure code (CPT) selection complete Assessment & Plan Assessment & Plan (1) ICD (implantable cardioverter-defibrillator), biventricular, in situ: Comment: Medtronic Bi V ICD in place Code(s): Z95.810 - Presence of automatic (implantable) cardiac defibrillator Category: Medical Plan: Orders: Orders AMB Cardiac Device Follow-up 11/02/23 Z95.810 - Presence of automatic (implantable) cardiac defibrillator Coding Level of Care Code Procedure Only Diagnoses ICD (implantable cardioverter-defibrillator), biventricular, in situ Z95.810 CPT Codes Cardiac Device Check - Cardiac Device 10: [id number]-[id number] Device Interrogation, cardiac physiologic monitor system ([id number])
== END ==
PROVIDERS: PCP Hospitalist; Visit Provider Internal Medicine Cardiovascular Disease
DX: Z45.02 Encounter for adjustment and management of automatic implantable cardiac defibrillator (principal)
CPT/HCPCS: 93297

== ENCOUNTER 2023-11-26 15:05 | Outpatient (AMB) | payer OTHER, SELFPAY ==
[2023-06-24 10:52] VITALS: BP 112/58; BP 118/58; BMI 26.1
[2023-11-26 15:07] VITALS: BP 140/60; PULSE 79; BMI 26.4
--- NOTE | 2023-11-26 15:07 | MHC.OFFVIS ---
Vital Signs 11/26/23 15:07 Height 5 ft 7 in Weight 168 lb 13.985 oz BMI 26.4 BP 140/60 H Blood Pressure Location Lt brachial Position Sitting Pulse 79 Intake Visit Reasons: follow up Sinter Feeder Required: No Accompanied by: Son Allergies No Known Allergies Allergy (Verified 10/27/23 09:42) Medication List - Last Reconciled 11/26/23 by Shashank Martell MD acetaminophen (Tylenol Extra Strength) 1,000 mg PO QPM PRN acetaminophen ER (Mapap Arthritis Pain) 1,300 mg PO Q12H PRN apixaban (Eliquis) 5 mg PO BID 90 days aspirin (Adult Low Dose Aspirin) 81 mg PO DAILY atorvastatin 40 mg PO DAILY blood sugar diagnostic (Accu-Chek Nelly Plus test strips) 4 x/day carvedilol 12.5 mg PO BID 90 days cholecalciferol (vitamin D3) 25 mcg PO DAILY docusate sodium 100 mg PO BID dulaglutide (Trulicity) mg subcut QWEEK dulaglutide (Trulicity) mg subcut fluticasone propionate 50 mcg/actuation 1 spray intranasal DAILY gabapentin 300 mg PO TID insulin degludec (Tresiba FlexTouch U-100 insulin) 24 units subcut DAILY insulin lispro (Humalog KwikPen (U-100) Insulin) 4 - 6 units (0.04 - 0.06 mL) subcut TID isosorbide mononitrate ER 30 mg PO DAILY levocetirizine 5 mg PO QPM metformin 1,000 mg PO BID nitroglycerin 0 mg sublingual omeprazole 20 mg PO BID sacubitril-valsartan 24-26 mg (Entresto) 1 tab PO BID 90 days tamsulosin 0.4 mg PO DAILY HPI Comments Details: Pleasant 73-year-old gentleman is here for 1st office visit. He has background history of coronary artery bypass surgery which was performed in 2005. It appears he had BATEMAN to LAD, saphenous vein graft to OM1 and radial graft to OM3. There was no graft placed to the right coronary artery. It appears he got admitted to hospital with urinary retention and eventually developed chest discomfort and echocardiography nuclear perfusion imaging was performed. ECHO showed EF of 15-20% with global hypokinesis and nuclear stress test was more consistent with fixed anterior perfusion defect consistent with scar. He underwent cardiac catheterization at that time which showed that his vein graft to om 1 and om 2 are both patent. He had a chronic total occlusion of the right coronary artery. He had severe proximal and distal LAD stenosis of 80-90%. Proximal 2nd diagonal has 90% stenosis. Left main 35% stenosis. Om 1 and OM 2 both are 99% and 95% stenosis. It appears he was medically treated and sent home with guideline directed medical therapy. His EKG also showed first-degree AV block and left bundle-branch block. He has been doing cardiac rehabilitation and it appears he has been progressing there. Off and on he has noticed some right-sided chest pain which gets for severe presses his chest wall. I think this is musculoskeletal pain. His additional anginal discomfort was a center pressure-like feeling. He returns and his medications are different. It appears he had a prescription given to him through his primary care office of lisinopril 2.5 mg. He is also taking Entresto and there is a serious reaction between the 2 medications. I have advised him to stop the lisinopril and we have reached out to the physician's office to make sure that lisinopril will script is canceled. His blood pressure is a little low but he is not dizzy or lightheaded. He seems to be progressing at a cardiac rehab which is a good sign. He was previous also on apixaban for paroxysmal atrial fibrillation but he returns and is off apixaban. He is not sure why it was stopped. His recent echocardiography has shown moderate LV dysfunction with EF of 30 35%. He has avoided left bundle-branch block. 01/22/23: He returns for follow-up. He has been exercising at cardiac rehab and doing well. Repeat echocardiography which was a limited echo showed EF of 30 35%. Tolerating medications and taking them regularly. 04/30/23: Returns for follow-up. He has been doing fine with cardiac rehabilitation. Occasionally gets chest discomfort. Blood pressure is normal. Previously was referred for DISCIPLINARY HEARING OFFICER D. It appears there has been some communication issues between electrophysiology and Mr. Kohli. I will look into this. Overall he has been stable. 08/11/23: He returns for follow-up. He is status post Bi V AICD placement. Clinically has been stable. No chest discomfort shortness of breath. He had urinary tract infection which delayed his procedure and at that time we stopped the Jardiance because of risk of UTI associated with Jardiance. He has been doing well with current medications. 11/26/23: He is here for f/u. He has LE edema and mild dyspnea. He has also noted abdominal distension. He also has been getting some chest pressure lasting for 2 mins with activities. He is off Jardiance because he had UTIs in the past. [facility] Medical History (Updated 10/27/23 @ 13:17 by RADHA Alba) Pacemaker Cerebrovascular accident (CVA) determined by clinical assessment Screening for prostate cancer Screening for colon cancer PAD (peripheral artery disease) Type 2 diabetes mellitus with hypoglycemia Gout CAD (coronary artery disease) GERD (gastroesophageal reflux disease) Type 2 diabetes mellitus with hyperglycemia, with long-term current use of insulin Type 2 diabetes mellitus with diabetic polyneuropathy Hyperlipidemia LDL goal <70 Vitamin D deficiency Essential hypertension Surgical History Hx of removal of cyst History of open heart surgery Family History Mother CVD (cardiovascular disease) Father No problems noted. Other Pacemaker Social History Household Members: Family Housing: House Alcohol intake: never Patient Tobacco Use Status: Never used Tobacco e-Cigarette/Vaping Use: Never Used Second Hand Smoke Exposure: No service: No Current occupational status: retired Cognitive needs: No Hearing needs: No Vision needs: No Review of Systems Const Denies chills, Denies fatigue, Denies fever(s), Denies frequent falls, Denies weakness, Denies weight gain and Denies weight loss ENT Reports dizziness Card Denies chest pain, Reports leg edema, Reports lightheadedness, Denies palpitations, Reports dyspnea and Reports dyspnea on exertion Resp Denies cough, Reports dyspnea and Reports dyspnea on exertion GI Denies hematochezia Musc Denies abnormal gait, Denies muscle weakness, Denies numbness, Denies radiating pain into limb and Denies tingling Neuro Denies abnormal gait, Reports dizziness, Denies frequent falls, Denies numbness, Denies tingling and Denies weakness Endo Denies fatigue and Denies palpitations Physical Exam Vital Signs: Last Vital Signs Pulse 79 11/26/23 15:07 BP 140/60 H 11/26/23 15:07 BMI result Body Mass Index 26.4 GENERAL APPEARANCE: in no acute distress, pleasant. NECK: no carotid bruit, no jugular venous distention. SKIN: no suspicious lesions, warm and dry. HEART: Systolic murmur aortic area with preserved 2nd heart sound, regular rate and rhythm. LUNGS: clear to auscultation bilaterally. ABDOMEN: soft, nontender. EXTREMITIES: mild edema. PERIPHERAL PULSES: equal. NEUROLOGIC: No gross deficits, AAO X 3 Office Procedures EKG Details: NSR 79/min, left axis, LVH, QRS 152 msc, QTc 513 msec. [id number], Complete Assessment & Plan Assessment & Plan (1) Essential hypertension: Code(s): I10 - Essential (primary) hypertension Category: Medical (2) Cardiomyopathy: Code(s): I42.9 - Cardiomyopathy, unspecified Category: Medical (3) Stable angina: Code(s): I20.8 - Other forms of angina pectoris Category: Medical Plan 73 male with ischemic CM and LBBB s/p Biv AICD- DISCIPLINARY HEARING OFFICER D EF 30-35%. Mildly overloaded. Adding Lasix 20 mg daily. Continue rest of the meds. f/u 6-8 weeks. Medications: New furosemide (Lasix) 20 mg PO DAILY 60 tabs 3RF I42.9 - Cardiomyopathy, unspecified Coding Level of Care Code Est Pt Level 3 (75453) Diagnoses Essential hypertension I10 Cardiomyopathy I42.9 Stable angina I20.8 CPT Codes EKG - CPT: 80892-[id number], Complete ([id number])
== END 2023-11-26 15:44 | disposition home or self-care (01) ==
PROVIDERS: PCP Hospitalist; Visit Provider Internal Medicine Cardiovascular Disease
DX: I10 Essential (primary) hypertension (principal); I42.9 Cardiomyopathy, unspecified; I20.89 Other forms of angina pectoris
CPT/HCPCS: 93010; 99213

== ENCOUNTER → 2023-11-26 15:05 | Outpatient (BNVA) | payer OTHER, SELFPAY ==
[2023-06-24 10:52] VITALS: BP 112/58; BP 118/58; BMI 26.1
== END ==
PROVIDERS: PCP Hospitalist; Visit Provider Internal Medicine Cardiovascular Disease
DX: I10 Essential (primary) hypertension (principal); I42.9 Cardiomyopathy, unspecified; I20.89 Other forms of angina pectoris
CPT/HCPCS: 93005

== ENCOUNTER → 2023-12-03 23:59 | Outpatient (BNV) | payer OTHER, SELFPAY ==
[2023-06-24 10:52] VITALS: BP 112/58; BP 118/58; BMI 26.1
--- NOTE | 2023-12-13 22:03 | MHC.OFFVIS ---
Intake Visit Reasons: Remote HF monitoring- Medtronic Allergies No Known Allergies Allergy (Verified 10/27/23 09:42) [facility] Medical History (Updated 10/27/23 @ 13:17 by RADHA Alba) Pacemaker Cerebrovascular accident (CVA) determined by clinical assessment Screening for prostate cancer Screening for colon cancer PAD (peripheral artery disease) Type 2 diabetes mellitus with hypoglycemia Gout CAD (coronary artery disease) GERD (gastroesophageal reflux disease) Type 2 diabetes mellitus with hyperglycemia, with long-term current use of insulin Type 2 diabetes mellitus with diabetic polyneuropathy Hyperlipidemia LDL goal <70 Vitamin D deficiency Essential hypertension Surgical History Hx of removal of cyst History of open heart surgery Family History Mother CVD (cardiovascular disease) Father No problems noted. Other Pacemaker Social History Household Members: Family Housing: House Alcohol intake: never Patient Tobacco Use Status: Never used Tobacco e-Cigarette/Vaping Use: Never Used Second Hand Smoke Exposure: No service: No Current occupational status: retired Cognitive needs: No Hearing needs: No Vision needs: No Office Procedures Cardiac Device Check Cardiac Device Check Details: Biv AICD HF monitoring Stable thoracic impedance. [id number] Cardiac Device Interrogation, cardio physiologic monitor Procedure code (CPT) selection complete Assessment & Plan Assessment & Plan (1) ICD (implantable cardioverter-defibrillator), biventricular, in situ: Comment: Medtronic Bi V ICD in place Code(s): Z95.810 - Presence of automatic (implantable) cardiac defibrillator Category: Medical Plan: Plan Coding Level of Care Code Procedure Only Diagnoses ICD (implantable cardioverter-defibrillator), biventricular, in situ Z95.810 CPT Codes Cardiac Device Check - Cardiac Device 15: [id number] Cardiac Device Interrogation, cardio physiologic monitor ([id number])
== END ==
PROVIDERS: PCP Hospitalist; Visit Provider Internal Medicine Cardiovascular Disease
DX: Z45.02 Encounter for adjustment and management of automatic implantable cardiac defibrillator (principal)
CPT/HCPCS: 93297

== ENCOUNTER 2023-12-31 13:27 | Outpatient (AMB) | payer OTHER, SELFPAY ==
[2023-06-24 10:52] VITALS: BP 112/58; BP 118/58; BMI 26.1
[2023-12-31 13:29] VITALS: BP 120/60; PULSE 89; BMI 26.4
--- NOTE | 2023-12-31 13:29 | A.OFFVIS_ITS ---
Vital Signs 12/31/23 13:29 Height 5 ft 7 in Weight 168 lb 6.931 oz BMI 26.4 BP 120/60 Blood Pressure Location Rt brachial Position Sitting Pulse 89 Pulse Source Pulse Oximeter Intake Visit Reasons: 4-6 wk follow up Intake Note: pt is here for his 4-6wk f/up pt state that he is doing fine. Pre Press Proofer Required: No Accompanied by: Son Allergies No Known Allergies Allergy (Verified 10/27/23 09:42) Medication List - Last Reconciled 12/31/23 by Shashank Martell MD acetaminophen (Tylenol Extra Strength) 1,000 mg PO QPM PRN acetaminophen ER (Mapap Arthritis Pain) 1,300 mg PO Q12H PRN apixaban (Eliquis) 5 mg PO BID 90 days aspirin (Adult Low Dose Aspirin) 81 mg PO DAILY atorvastatin 40 mg PO DAILY blood sugar diagnostic (Accu-Chek Nelly Plus test strips) 4 x/day carvedilol 12.5 mg PO BID 90 days cholecalciferol (vitamin D3) 25 mcg PO DAILY docusate sodium 100 mg PO BID dulaglutide (Trulicity) mg subcut QWEEK dulaglutide (Trulicity) mg subcut fluticasone propionate 50 mcg/actuation 1 spray intranasal DAILY furosemide (Lasix) 20 mg PO DAILY gabapentin 300 mg PO TID insulin degludec (Tresiba FlexTouch U-100 insulin) 24 units subcut DAILY insulin lispro (Humalog KwikPen (U-100) Insulin) 4 - 6 units (0.04 - 0.06 mL) subcut TID isosorbide mononitrate ER 30 mg PO DAILY levocetirizine 5 mg PO QPM metformin 1,000 mg PO BID nitroglycerin 0 mg sublingual omeprazole 20 mg PO BID sacubitril-valsartan 24-26 mg (Entresto) 1 tab PO BID 90 days tamsulosin 0.4 mg PO DAILY HPI Comments Details: Pleasant 73-year-old gentleman is here for 1st office visit. He has background history of coronary artery bypass surgery which was performed in 2005. It appears he had BATEMAN to LAD, saphenous vein graft to OM1 and radial graft to OM3. There was no graft placed to the right coronary artery. It appears he got admitted to hospital with urinary retention and eventually developed chest discomfort and echocardiography nuclear perfusion imaging was performed. ECHO showed EF of 15-20% with global hypokinesis and nuclear stress test was more consistent with fixed anterior perfusion defect consistent with scar. He underwent cardiac catheterization at that time which showed that his vein graft to om 1 and om 2 are both patent. He had a chronic total occlusion of the right coronary artery. He had severe proximal and distal LAD stenosis of 80-90%. Proximal 2nd diagonal has 90% stenosis. Left main 35% stenosis. Om 1 and OM 2 both are 99% and 95% stenosis. It appears he was medically treated and sent home with guideline directed medical therapy. His EKG also showed first-degree AV block and left bundle-branch block. He has been doing cardiac rehabilitation and it appears he has been progressing there. Off and on he has noticed some right-sided chest pain which gets for severe presses his chest wall. I think this is musculoskeletal pain. His additional anginal discomfort was a center pressure-like feeling. He returns and his medications are different. It appears he had a prescription given to him through his primary care office of lisinopril 2.5 mg. He is also taking Entresto and there is a serious reaction between the 2 medications. I have advised him to stop the lisinopril and we have reached out to the physician's office to make sure that lisinopril will script is canceled. His blood pressure is a little low but he is not dizzy or lightheaded. He seems to be progressing at a cardiac rehab which is a good sign. He was previous also on apixaban for paroxysmal atrial fibrillation but he returns and is off apixaban. He is not sure why it was stopped. His recent echocardiography has shown moderate LV dysfunction with EF of 30 35%. He has avoided left bundle-branch block. 01/22/23: He returns for follow-up. He has been exercising at cardiac rehab and doing well. Repeat echocardiography which was a limited echo showed EF of 30 35%. Tolerating medications and taking them regularly. 04/30/23: Returns for follow-up. He has been doing fine with cardiac rehabilitation. Occasionally gets chest discomfort. Blood pressure is normal. Previously was referred for YARD SUPERVISOR COTTON GIN D. It appears there has been some communication issues between electrophysiology and Mr. Kohli. I will look into this. Overall he has been stable. 08/11/23: He returns for follow-up. He is status post Bi V AICD placement. Clinically has been stable. No chest discomfort shortness of breath. He had urinary tract infection which delayed his procedure and at that time we stopped the Jardiance because of risk of UTI associated with Jardiance. He has been doing well with current medications. 11/26/23: He is here for f/u. He has LE edema and mild dyspnea. He has also noted abdominal distension. He also has been getting some chest pressure lasting for 2 mins with activities. He is off Jardiance because he had UTIs in the past. 12/31/23: He was started on low-dose Lasix 20 mg daily on last visit. He returns today and is denying any new symptoms. Lower extremity edema has improved completely but he also has stopped using gabapentin. He is asking whether gabapentin should be restarted and whether he can decrease the dose. It appears he was seeing a neurologist after meningitis and he was started on gabapentin. He is denying any neuropathic symptoms currently. He has some clear prostatism and was on tamsulosin before. [facility] Medical History (Updated 10/27/23 @ 13:17 by GI AlbaC) Pacemaker Cerebrovascular accident (CVA) determined by clinical assessment Screening for prostate cancer Screening for colon cancer PAD (peripheral artery disease) Type 2 diabetes mellitus with hypoglycemia Gout CAD (coronary artery disease) GERD (gastroesophageal reflux disease) Type 2 diabetes mellitus with hyperglycemia, with long-term current use of insulin Type 2 diabetes mellitus with diabetic polyneuropathy Hyperlipidemia LDL goal <70 Vitamin D deficiency Essential hypertension Surgical History Hx of removal of cyst History of open heart surgery Family History Mother CVD (cardiovascular disease) Father No problems noted. Other Pacemaker Social History Household Members: Family Housing: House Alcohol intake: never Patient Tobacco Use Status: Never used Tobacco e-Cigarette/Vaping Use: Never Used Second Hand Smoke Exposure: No service: No Current occupational status: retired Cognitive needs: No Hearing needs: No Vision needs: No Review of Systems Const Denies chills, Denies fatigue, Denies fever(s), Denies frequent falls, Denies weakness, Denies weight gain and Denies weight loss ENT Denies dizziness Card Denies chest pain, Denies leg edema, Denies lightheadedness, Denies palpitations, Denies dyspnea and Denies dyspnea on exertion Resp Denies cough, Denies dyspnea and Denies dyspnea on exertion GI Denies hematochezia Musc Denies abnormal gait, Denies muscle weakness, Denies numbness, Denies radiating pain into limb and Denies tingling Neuro Denies abnormal gait, Denies dizziness, Denies frequent falls, Denies numbness, Denies tingling and Denies weakness Endo Denies fatigue and Denies palpitations Physical Exam Vital Signs: Last Vital Signs Pulse 89 12/31/23 13:29 BP 120/60 12/31/23 13:29 BMI result Body Mass Index 26.4 GENERAL APPEARANCE: in no acute distress, pleasant. NECK: no carotid bruit, no jugular venous distention. SKIN: no suspicious lesions, warm and dry. HEART: Systolic murmur aortic area with preserved 2nd heart sound, regular rate and rhythm. LUNGS: clear to auscultation bilaterally. ABDOMEN: soft, nontender. EXTREMITIES: mild edema. PERIPHERAL PULSES: equal. NEUROLOGIC: No gross deficits, AAO X 3 Assessment & Plan Assessment & Plan (1) ICD (implantable cardioverter-defibrillator), biventricular, in situ: Comment: Medtronic Bi V ICD in place Code(s): Z95.810 - Presence of automatic (implantable) cardiac defibrillator Category: Medical (2) CAD (coronary artery disease): Comment: s/p CABG BATEMAN to LAD, SVG to OM1 and radial graft to OM 3. No grafts placed to the RCA Code(s): I25.10 - Atherosclerotic heart disease of [place] coronary artery without angina pectoris Category: Medical (3) Stable angina: Code(s): I20.8 - Other forms of angina pectoris Category: Medical (4) Cardiomyopathy: Code(s): I42.9 - Cardiomyopathy, unspecified Category: Medical Plan Pleasant 73 year gentleman with background history of coronary artery bypass surgery and cardiomyopathy with wide left bundle-branch block. He underwent YARD SUPERVIS[employer] COTTON GIN D his ejection fraction is 30-35% as of last echocardiogram. Clinically he is euvolemic currently. He has some limitations due to previous meningitis which has affected his mobility and walks with a cane. Lower extremity edema improved with Lasix 20 mg daily. He had stopped taking gabapentin and is asking whether he can resume it. Given his neurological issues in the past and limited mobility-I think if he developed any neuropathic symptoms that will really affect his mobility. I have advised him to start gabapentin at 100 mg 3 times a day. No changes in medications otherwise. He is complaining of some skin itching due to skin dryness. I have advised him to drink water and hydrate himself and use Eucerin cream after taking shower. Follow-up with us in 4 months. Medications: New gabapentin 100 mg PO TID 90 caps 0RF Coding Level of Care Code Est Pt Level 3 (62044) Diagnoses ICD (implantable cardioverter-defibrillator), biventricular, in situ Z95.810 CAD (coronary artery disease) I25.10 Stable angina I20.8 Cardiomyopathy I42.9
== END 2023-12-31 14:05 | disposition home or self-care (01) ==
PROVIDERS: PCP Hospitalist; Visit Provider Internal Medicine Cardiovascular Disease
DX: I25.118 Atherosclerotic heart disease of native coronary artery with other forms of angina pectoris (principal); I42.9 Cardiomyopathy, unspecified; Z95.810 Presence of automatic (implantable) cardiac defibrillator
CPT/HCPCS: 99213

== ENCOUNTER → 2023-12-31 13:27 | Outpatient (BNVA) | payer OTHER, SELFPAY ==
[2023-06-24 10:52] VITALS: BP 112/58; BP 118/58; BMI 26.1
== END ==
PROVIDERS: PCP Hospitalist; Visit Provider Internal Medicine Cardiovascular Disease

== ENCOUNTER → 2024-01-05 23:59 | Outpatient (BNV) | payer OTHER, SELFPAY ==
[2023-06-24 10:52] VITALS: BP 112/58; BP 118/58; BMI 26.1
--- NOTE | 2024-01-12 11:27 | MHC.OFFVIS ---
Intake Visit Reasons: Remote ICD check- Medtronic Allergies No Known Allergies Allergy (Verified 10/27/23 09:42) [facility] Medical History (Updated 10/27/23 @ 13:17 by RADHA Alba) Pacemaker Cerebrovascular accident (CVA) determined by clinical assessment Screening for prostate cancer Screening for colon cancer PAD (peripheral artery disease) Type 2 diabetes mellitus with hypoglycemia Gout CAD (coronary artery disease) GERD (gastroesophageal reflux disease) Type 2 diabetes mellitus with hyperglycemia, with long-term current use of insulin Type 2 diabetes mellitus with diabetic polyneuropathy Hyperlipidemia LDL goal <70 Vitamin D deficiency Essential hypertension Surgical History Hx of removal of cyst History of open heart surgery Family History Mother CVD (cardiovascular disease) Father No problems noted. Other Pacemaker Social History Household Members: Family Housing: House Alcohol intake: never Patient Tobacco Use Status: Never used Tobacco e-Cigarette/Vaping Use: Never Used Second Hand Smoke Exposure: No service: No Current occupational status: retired Cognitive needs: No Hearing needs: No Vision needs: No Office Procedures Cardiac Device Check Cardiac Device Check Details: Medtronic WE[employer] INSTRUCTOR-D Good battery life. No new alerts CONTINUITY EDITOR 99.9%. [id number] Cardiac Device Check, multi lead implantable defibrillator Procedure code (CPT) selection complete Assessment & Plan Assessment & Plan (1) Cardiomyopathy: Code(s): I42.9 - Cardiomyopathy, unspecified Category: Medical Plan Orders: Orders AMB Cardiac Device Follow-up 01/05/24 I42.9 - Cardiomyopathy, unspecified Coding Level of Care Code Procedure Only Diagnoses Cardiomyopathy I42.9 CPT Codes Cardiac Device Check - Cardiac Device 6: [id number] Cardiac Device Check, multi lead implantable defibrillator ([id number])
== END ==
PROVIDERS: PCP Hospitalist; Visit Provider Internal Medicine Cardiovascular Disease
DX: I42.9 Cardiomyopathy, unspecified (principal); Z95.810 Presence of automatic (implantable) cardiac defibrillator
CPT/HCPCS: 93295

== ENCOUNTER → 2024-01-05 23:59 | Outpatient (BNV) | payer OTHER, SELFPAY ==
[2023-06-24 10:52] VITALS: BP 112/58; BP 118/58; BMI 26.1
--- NOTE | 2024-01-12 11:30 | A.OFFVIS_ITS ---
Intake Visit Reasons: Remote HF monitoring- Medtronic Allergies No Known Allergies Allergy (Verified 10/27/23 09:42) [facility] Medical History (Updated 10/27/23 @ 13:17 by RADHA Alba) Pacemaker Cerebrovascular accident (CVA) determined by clinical assessment Screening for prostate cancer Screening for colon cancer PAD (peripheral artery disease) Type 2 diabetes mellitus with hypoglycemia Gout CAD (coronary artery disease) GERD (gastroesophageal reflux disease) Type 2 diabetes mellitus with hyperglycemia, with long-term current use of insulin Type 2 diabetes mellitus with diabetic polyneuropathy Hyperlipidemia LDL goal <70 Vitamin D deficiency Essential hypertension Surgical History Hx of removal of cyst History of open heart surgery Family History Mother CVD (cardiovascular disease) Father No problems noted. Other Pacemaker Social History Household Members: Family Housing: House Alcohol intake: never Patient Tobacco Use Status: Never used Tobacco e-Cigarette/Vaping Use: Never Used Second Hand Smoke Exposure: No service: No Current occupational status: retired Cognitive needs: No Hearing needs: No Vision needs: No Office Procedures Cardiac Device Check Cardiac Device Check Details: HF monitoring GROUND SERVICES INSTRUCTOR 99.9% Stable volume status. [id number] Cardiac Device Interrogation, cardio physiologic monitor Procedure code (CPT) selection complete Assessment & Plan Assessment & Plan (1) ICD (implantable cardioverter-defibrillator), biventricular, in situ: Comment: Medtronic Bi V ICD in place Code(s): Z95.810 - Presence of automatic (implantable) cardiac defibrillator Category: Medical Plan Orders: Orders AMB Cardiac Device Follow-up 01/05/24 Z95.810 - Presence of automatic (implantable) cardiac defibrillator Coding Level of Care Code Procedure Only Diagnoses ICD (implantable cardioverter-defibrillator), biventricular, in situ Z95.810 CPT Codes Cardiac Device Check - Cardiac Device 15: [id number] Cardiac Device Interrogation, cardio physiologic monitor ([id number])
== END ==
PROVIDERS: PCP Hospitalist; Visit Provider Internal Medicine Cardiovascular Disease
DX: Z45.02 Encounter for adjustment and management of automatic implantable cardiac defibrillator (principal)
CPT/HCPCS: 93297

== ENCOUNTER 2024-01-26 14:22 | Outpatient (AMB) | payer OTHER, SELFPAY ==
[2023-06-24 10:52] VITALS: BP 112/58; BP 118/58; BMI 26.1
[2024-01-26 14:34] VITALS: BP 130/60; PULSE 87; BMI 26.7
--- NOTE | 2024-01-26 14:34 | MHC.OFFVIS ---
Vital Signs 01/26/24 14:34 Height 5 ft 7 in Weight 170 lb 10.205 oz BMI 26.7 BP 130/60 Blood Pressure Location Rt brachial Position Sitting Pulse 87 Pulse Source Pulse Oximeter Intake Visit Reasons: 3m device ck Intake Note: 3 mth device ck, pt is doing fine. Rejected Items Clerk Required: No Accompanied by: Self / Same As Patient Allergies No Known Allergies Allergy (Verified 10/27/23 09:42) Medication List - Last Reconciled 01/26/24 by Shashank Martell MD acetaminophen (Tylenol Extra Strength) 1,000 mg PO QPM PRN acetaminophen ER (Mapap Arthritis Pain) 1,300 mg PO Q12H PRN apixaban (Eliquis) 5 mg PO BID 90 days aspirin (Adult Low Dose Aspirin) 81 mg PO DAILY atorvastatin 40 mg PO DAILY blood sugar diagnostic (Accu-Chek Nelly Plus test strips) 4 x/day carvedilol 12.5 mg PO BID 90 days cholecalciferol (vitamin D3) 25 mcg PO DAILY docusate sodium 100 mg PO BID dulaglutide (Trulicity) mg subcut QWEEK dulaglutide (Trulicity) mg subcut fluticasone propionate 50 mcg/actuation 1 spray intranasal DAILY furosemide (Lasix) 20 mg PO DAILY gabapentin 100 mg PO TID insulin degludec (Tresiba FlexTouch U-100 insulin) 24 units subcut DAILY insulin lispro (Humalog KwikPen (U-100) Insulin) 4 - 6 units (0.04 - 0.06 mL) subcut TID isosorbide mononitrate ER 30 mg PO DAILY levocetirizine 5 mg PO QPM metformin 1,000 mg PO BID nitroglycerin 0 mg sublingual omeprazole 20 mg PO BID sacubitril-valsartan 24-26 mg (Entresto) 1 tab PO BID 90 days tamsulosin 0.4 mg PO DAILY HPI Comments Details: Pleasant 73-year-old gentleman is here for 1st office visit. He has background history of coronary artery bypass surgery which was performed in 2005. It appears he had BATEMAN to LAD, saphenous vein graft to OM1 and radial graft to OM3. There was no graft placed to the right coronary artery. It appears he got admitted to hospital with urinary retention and eventually developed chest discomfort and echocardiography nuclear perfusion imaging was performed. ECHO showed EF of 15-20% with global hypokinesis and nuclear stress test was more consistent with fixed anterior perfusion defect consistent with scar. He underwent cardiac catheterization at that time which showed that his vein graft to om 1 and om 2 are both patent. He had a chronic total occlusion of the right coronary artery. He had severe proximal and distal LAD stenosis of 80-90%. Proximal 2nd diagonal has 90% stenosis. Left main 35% stenosis. Om 1 and OM 2 both are 99% and 95% stenosis. It appears he was medically treated and sent home with guideline directed medical therapy. His EKG also showed first-degree AV block and left bundle-branch block. He has been doing cardiac rehabilitation and it appears he has been progressing there. Off and on he has noticed some right-sided chest pain which gets for severe presses his chest wall. I think this is musculoskeletal pain. His additional anginal discomfort was a center pressure-like feeling. He returns and his medications are different. It appears he had a prescription given to him through his primary care office of lisinopril 2.5 mg. He is also taking Entresto and there is a serious reaction between the 2 medications. I have advised him to stop the lisinopril and we have reached out to the physician's office to make sure that lisinopril will script is canceled. His blood pressure is a little low but he is not dizzy or lightheaded. He seems to be progressing at a cardiac rehab which is a good sign. He was previous also on apixaban for paroxysmal atrial fibrillation but he returns and is off apixaban. He is not sure why it was stopped. His recent echocardiography has shown moderate LV dysfunction with EF of 30 35%. He has avoided left bundle-branch block. 01/22/23: He returns for follow-up. He has been exercising at cardiac rehab and doing well. Repeat echocardiography which was a limited echo showed EF of 30 35%. Tolerating medications and taking them regularly. 04/30/23: Returns for follow-up. He has been doing fine with cardiac rehabilitation. Occasionally gets chest discomfort. Blood pressure is normal. Previously was referred for POSTAL SERVICE CLERK D. It appears there has been some communication issues between electrophysiology and Mr. Kohli. I will look into this. Overall he has been stable. 08/11/23: He returns for follow-up. He is status post Bi V AICD placement. Clinically has been stable. No chest discomfort shortness of breath. He had urinary tract infection which delayed his procedure and at that time we stopped the Jardiance because of risk of UTI associated with Jardiance. He has been doing well with current medications. 11/26/23: He is here for f/u. He has LE edema and mild dyspnea. He has also noted abdominal distension. He also has been getting some chest pressure lasting for 2 mins with activities. He is off Jardiance because he had UTIs in the past. 12/31/23: He was started on low-dose Lasix 20 mg daily on last visit. He returns today and is denying any new symptoms. Lower extremity edema has improved completely but he also has stopped using gabapentin. He is asking whether gabapentin should be restarted and whether he can decrease the dose. It appears he was seeing a neurologist after meningitis and he was started on gabapentin. He is denying any neuropathic symptoms currently. He has some clear prostatism and was on tamsulosin before. 01/26/2024: He is here for follow-up. He recently had ER visit because of severe constipation and urinary retention. He was given treatment for constipation and had a Lemus catheter placed. He continues to have a Lemus catheter in place and will be seeing urologist soon. He said he was doing fine with constipation but recently just developed severe constipation and then urinary retention. It is possible that the constipation led to urinary retention but at his age obviously underlying bladder outlet obstruction and other issues can be the cause 2. He said he started taking Jardiance before all this started and he has stopped using it. No urinary tract infection has been found but he previously had urinary issues which led to ER visits and after discussion we have decided not to try Jardiance anymore. He also has some burning chest discomfort in the upper part and throat. I think this is probably related to acid reflux. I have advised him to stop the baby aspirin. Otherwise no chest pain or shortness of breath. His peripheral edema has improved. Blood pressure is well controlled. No anginal symptoms. [facility] Medical History (Updated 10/27/23 @ 13:17 by Astrid Perkins NP-C) Pacemaker Cerebrovascular accident (CVA) determined by clinical assessment Screening for prostate cancer Screening for colon cancer PAD (peripheral artery disease) Type 2 diabetes mellitus with hypoglycemia Gout CAD (coronary artery disease) GERD (gastroesophageal reflux disease) Type 2 diabetes mellitus with hyperglycemia, with long-term current use of insulin Type 2 diabetes mellitus with diabetic polyneuropathy Hyperlipidemia LDL goal <70 Vitamin D deficiency Essential hypertension Surgical History Hx of removal of cyst History of open heart surgery Family History Mother CVD (cardiovascular disease) Father No problems noted. Other Pacemaker Social History Household Members: Family Housing: House Alcohol intake: never Patient Tobacco Use Status: Never used Tobacco e-Cigarette/Vaping Use: Never Used Second Hand Smoke Exposure: No service: No Current occupational status: retired Cognitive needs: No Hearing needs: No Vision needs: No Review of Systems Const Denies chills, Denies fatigue, Denies fever(s), Denies frequent falls, Denies weakness, Denies weight gain and Denies weight loss ENT Denies dizziness Card Denies chest pain, Denies leg edema, Denies lightheadedness, Denies palpitations, Denies dyspnea and Denies dyspnea on exertion Resp Denies cough, Denies dyspnea and Denies dyspnea on exertion GI Denies hematochezia Musc Denies abnormal gait, Denies muscle weakness, Denies numbness, Denies radiating pain into limb and Denies tingling Neuro Denies abnormal gait, Denies dizziness, Denies frequent falls, Denies numbness, Denies tingling and Denies weakness Endo Denies fatigue and Denies palpitations Physical Exam Vital Signs: Last Vital Signs Pulse 87 01/26/24 14:34 BP 130/60 01/26/24 14:34 BMI result Body Mass Index 26.7 GENERAL APPEARANCE: in no acute distress, pleasant. Lemus catheter with bag. NECK: no carotid bruit, no jugular venous distention. SKIN: no suspicious lesions, warm and dry. HEART: Systolic murmur aortic area with preserved 2nd heart sound, regular rate and rhythm. LUNGS: clear to auscultation bilaterally. ABDOMEN: soft, nontender. EXTREMITIES: no edema. PERIPHERAL PULSES: equal. NEUROLOGIC: No gross deficits, AAO X 3 Assessment & Plan Assessment & Plan (1) ICD (implantable cardioverter-defibrillator), biventricular, in situ: Comment: Medtronic Bi V ICD in place Code(s): Z95.810 - Presence of automatic (implantable) cardiac defibrillator Category: Medical (2) CAD (coronary artery disease): Comment: s/p CABG BATEMAN to LAD, SVG to OM1 and radial graft to OM 3. No grafts placed to the RCA Code(s): I25.10 - Atherosclerotic heart disease of douglas coronary artery without angina pectoris Category: Medical (3) Stable angina: Code(s): I20.8 - Other forms of angina pectoris Category: Medical (4) Cardiomyopathy: Code(s): I42.9 - Cardiomyopathy, unspecified Category: Medical Plan Pleasant 73 year gentleman with background history of coronary artery bypass surgery and cardiomyopathy with wide left bundle-branch block. He underwent POSTAL SERVICE CLERK D his ejection fraction is 30-35% as of last echocardiogram. Clinically he is euvolemic currently. He has some limitations due to previous meningitis which has affected his mobility and walks with a cane. Lower extremity edema improved with Lasix 20 mg daily. Clinically he is euvolemic. With Jardiance he did not have urinary tract infection but had retention soon after starting the medication. He is apprehensive and I have decided not to resume this medication anymore. He has low MCV on his blood workup and has been on aspirin apixaban. I have advised him to stop the baby aspirin and continue apixaban only. We will do some iron studies to assess iron stores. If he is anemic then he will need iron supplements most likely IV because he already with the has severe constipation which led to admission in the hospital. We will repeat echocardiography in 3 months and see him in follow-up for that. Thank you for allowing me to participate in the care of your patient. Please feel free to contact me if you have any questions. Follow-up with us in 3 months. Orders: Orders Transferrin Today I42.9 - Cardiomyopathy, unspecified IRON PROFILE Today I42.9 - Cardiomyopathy, unspecified Ferritin Today I42.9 - Cardiomyopathy, unspecified Coding Level of Care Code Est Pt Level 5 (82819) Diagnoses ICD (implantable cardioverter-defibrillator), biventricular, in situ Z95.810 CAD (coronary artery disease) I25.10 Stable angina I20.8 Cardiomyopathy I42.9
== END 2024-01-26 15:15 | disposition home or self-care (01) ==
PROVIDERS: PCP Hospitalist; Referring Provider Hospitalist; Visit Provider Internal Medicine Cardiovascular Disease
DX: I25.118 Atherosclerotic heart disease of native coronary artery with other forms of angina pectoris (principal); I42.9 Cardiomyopathy, unspecified; Z95.810 Presence of automatic (implantable) cardiac defibrillator
CPT/HCPCS: 99215

== ENCOUNTER → 2024-01-26 14:22 | Outpatient (BNVA) | payer OTHER, SELFPAY ==
[2023-06-24 10:52] VITALS: BP 112/58; BP 118/58; BMI 26.1
== END ==
PROVIDERS: PCP Hospitalist; Visit Provider Internal Medicine Cardiovascular Disease

== ENCOUNTER → 2024-02-09 23:59 | Outpatient (BNV) | payer OTHER, SELFPAY ==
[2023-06-24 10:52] VITALS: BP 112/58; BP 118/58; BMI 26.1
--- NOTE | 2024-02-17 18:22 | A.OFFVIS_ITS ---
Intake Visit Reasons: Remote HF monitoring- Medtronic Allergies No Known Allergies Allergy (Verified 10/27/23 09:42) [facility] Medical History (Updated 10/27/23 @ 13:17 by RADHA Alba) Pacemaker Cerebrovascular accident (CVA) determined by clinical assessment Screening for prostate cancer Screening for colon cancer PAD (peripheral artery disease) Type 2 diabetes mellitus with hypoglycemia Gout CAD (coronary artery disease) GERD (gastroesophageal reflux disease) Type 2 diabetes mellitus with hyperglycemia, with long-term current use of insulin Type 2 diabetes mellitus with diabetic polyneuropathy Hyperlipidemia LDL goal <70 Vitamin D deficiency Essential hypertension Surgical History Hx of removal of cyst History of open heart surgery Family History Mother CVD (cardiovascular disease) Father No problems noted. Other Pacemaker Social History Household Members: Family Housing: House Alcohol intake: never Patient Tobacco Use Status: Never used Tobacco e-Cigarette/Vaping Use: Never Used Second Hand Smoke Exposure: No service: No Current occupational status: retired Cognitive needs: No Hearing needs: No Vision needs: No Office Procedures Cardiac Device Check Cardiac Device Check Details: HF monitoring Stable thoracic impedance. [id number] Cardiac Device Interrogation, cardio physiologic monitor Procedure code (CPT) selection complete Assessment & Plan Assessment & Plan (1) Cardiomyopathy: Code(s): I42.9 - Cardiomyopathy, unspecified Category: Medical Plan: Medications: Discontinued aspirin Discontinued Reason: Doctor's Order 81 mg PO DAILY 90 tabs 4RF Coding Level of Care Code Procedure Only Diagnoses Cardiomyopathy I42.9 CPT Codes Cardiac Device Check - Cardiac Device 15: [id number] Cardiac Device Interrogation, cardio physiologic monitor ([id number])
== END ==
PROVIDERS: PCP Hospitalist; Visit Provider Internal Medicine Cardiovascular Disease
DX: I42.9 Cardiomyopathy, unspecified (principal); Z95.810 Presence of automatic (implantable) cardiac defibrillator
CPT/HCPCS: 93297

== ENCOUNTER 2024-02-26 06:22 | Outpatient (REF) | payer OTHER, SELFPAY ==
[2023-06-24 10:52] VITALS: BP 112/58; BP 118/58; BMI 26.1
[2024-02-26 06:35] LABS: MANUAL DIFF FLAG NO
[2024-02-26 07:21] LABS: Basophils Absolute Auto 0.1 X10*3/uL (0.0-0.2); Basophils Percent Auto 0.6 % (0-2); Eosinophils Absolute Auto 0.5 X10*3/uL (0.0-0.4); Eosinophils Percent Auto 4.6 % (0-4); Hemoglobin 11.6 g/dl (14.0-18.0); Imm Gran Abs Auto 0.03 X10*3/uL (0.00-0.03); Imm Gran Pct Auto 0.3 % (0.0-0.4); Lymphocytes Absolute Auto 2.6 X10*3/uL (1.2-4.9); Lymphocytes Percent Auto 25.1 % (20-40); Mean Corpuscular HGB Conc 30.5 g/dl (31.0-36.0); Mean Corpuscular Hemoglobin 24.1 pg (27.0-33.0); Mean Corpuscular Volume 78.8 fL (80.0-98.0); Mean Platelet Volume 10.5 fL (9.4-12.4); Monocytes Absolute Auto 0.9 X10*3/uL (0.1-1.2); Monocytes Percent Auto 8.8 % (2-11); Neutrophils Absolute Auto 6.3 x10*3/uL (2.0-8.3); Neutrophils Percent Auto 60.6 % (45-73); Platelet Count 262 X10*3/uL (160-400); Red Blood Count 4.82 X10*6/uL (4.60-5.80); White Blood Count 10.4 X10*3/uL (4.8-10.8)
[2024-02-26 07:32] LABS: Estimated Average Glucose 212 mg/dL
[2024-02-26 07:50] LABS: Alanine Aminotransferase 11 U/L (0-40); Albumin Level 4.1 g/dL (3.5-5.0); Alkaline Phosphatase 68 U/L (39-117); Anion Gap 14 (12-20); Aspartate Amino Transferase 18 U/L (5-37); Bilirubin Total 0.6 mg/dL (0.0-1.0); Blood Urea Nitrogen 32 mg/dL (9-16); Calcium 9.8 mg/dL (8.4-10.2); Carbon Dioxide 27 mmol/L (22-29); Chloride 103 mmol/L (96-108); Cholesterol 124 mg/dL (<200); Estimated Glomerular Filt Rate 55; Glucose Random 148 mg/dL (60-115); HDL Cholesterol 27 mg/dL (>40); LDL Cholesterol Calculated 23 mg/dL (<100); Potassium 4.8 mmol/L (3.3-5.1); Sodium 139 mmol/L (135-145); Total Protein 8.2 g/dL (6.5-8.0); Triglycerides 370 mg/dL (<150)
[2024-02-26 08:03] LABS: Iron 31 mcg/dL (45-160); Percent Iron Saturation 9 % (15-50); Total Iron Binding Capacity 352 mcg/dL (228-428); Unsaturated Iron Binding 321 ug/dL
[2024-02-26 08:14] LABS: Ferritin 13 ng/mL (20-250)
[2024-02-26 10:52] LABS: Creatinine Urine 45.27 mg/dL; Microalbum/Creatinine Ratio Ur 130.3 ug/mg cr (<30)
[2024-02-27 14:43] LABS: Transferrin 332 mg/dL (188-341)
== END 2024-02-26 06:23 | disposition home or self-care (01) ==
LOC: HO.LAB 06:22
PROVIDERS: Internal Medicine Cardiovascular Disease; PCP Hospitalist; Visit Provider Hospitalist
DX: E11.8 Type 2 diabetes mellitus with unspecified complications (principal); I42.9 Cardiomyopathy, unspecified
CPT/HCPCS: 36415; 80053; 80061; 82043; 82570; 82728; 83036; 83540; 84466; 85025

== ENCOUNTER → 2024-04-07 23:59 | Outpatient (BNV) | payer OTHER, SELFPAY ==
[2023-06-24 10:52] VITALS: BP 112/58; BP 118/58; BMI 26.1
--- NOTE | 2024-04-19 09:12 | A.OFFVIS_ITS ---
Intake Visit Reasons: Remote ICD check- Medtronic Allergies No Known Allergies Allergy (Verified 10/27/23 09:42) [facility] Medical History (Updated 10/27/23 @ 13:17 by RADHA Alba) Pacemaker Cerebrovascular accident (CVA) determined by clinical assessment Screening for prostate cancer Screening for colon cancer PAD (peripheral artery disease) Type 2 diabetes mellitus with hypoglycemia Gout CAD (coronary artery disease) GERD (gastroesophageal reflux disease) Type 2 diabetes mellitus with hyperglycemia, with long-term current use of insulin Type 2 diabetes mellitus with diabetic polyneuropathy Hyperlipidemia LDL goal <70 Vitamin D deficiency Essential hypertension Surgical History Hx of removal of cyst History of open heart surgery Family History Mother CVD (cardiovascular disease) Father No problems noted. Other Pacemaker Social History Household Members: Family Housing: House Alcohol intake: never Patient Tobacco Use Status: Never used Tobacco e-Cigarette/Vaping Use: Never Used Second Hand Smoke Exposure: No service: No Current occupational status: retired Cognitive needs: No Hearing needs: No Vision needs: No Office Procedures Cardiac Device Check Cardiac Device Check Details: Bi V ICD. Good battery life. V-Paced 99.9%. No new alerts. [id number] Cardiac Device Check, multi lead pacemaker Procedure code (CPT) selection complete Assessment & Plan Assessment & Plan (1) ICD (implantable cardioverter-defibrillator), biventricular, in situ: Comment: Medtronic Bi V ICD in place Code(s): Z95.810 - Presence of automatic (implantable) cardiac defibrillator Category: Medical Plan Medications: Refilled furosemide (Lasix) 20 mg PO DAILY 90 tabs 3RF I42.9 - Cardiomyopathy, unspecified Coding Level of Care Code Procedure Only Diagnoses ICD (implantable cardioverter-defibrillator), biventricular, in situ Z95.810 CPT Codes Cardiac Device Check - Cardiac Device 3: [id number] Cardiac Device Check, multi lead pacemaker ([id number])
== END ==
PROVIDERS: PCP Hospitalist; Visit Provider Internal Medicine Cardiovascular Disease
DX: Z95.810 Presence of automatic (implantable) cardiac defibrillator (principal)
CPT/HCPCS: 93297

== ENCOUNTER → 2024-04-07 23:59 | Outpatient (BNV) | payer OTHER, SELFPAY ==
[2023-06-24 10:52] VITALS: BP 112/58; BP 118/58; BMI 26.1
--- NOTE | 2024-04-19 09:13 | A.OFFVIS_ITS ---
Intake Visit Reasons: Remote HF monitoring- Medtronic Allergies No Known Allergies Allergy (Verified 10/27/23 09:42) [facility] Medical History (Updated 10/27/23 @ 13:17 by RADHA Alba) Pacemaker Cerebrovascular accident (CVA) determined by clinical assessment Screening for prostate cancer Screening for colon cancer PAD (peripheral artery disease) Type 2 diabetes mellitus with hypoglycemia Gout CAD (coronary artery disease) GERD (gastroesophageal reflux disease) Type 2 diabetes mellitus with hyperglycemia, with long-term current use of insulin Type 2 diabetes mellitus with diabetic polyneuropathy Hyperlipidemia LDL goal <70 Vitamin D deficiency Essential hypertension Surgical History (Reviewed 01/26/24 @ 14:38 by Anita Noble [facility]) Hx of removal of cyst History of open heart surgery Family History Mother CVD (cardiovascular disease) Father No problems noted. Other Pacemaker Social History (Reviewed 01/26/24 @ 14:38 by Anita Noble [facility]) Household Members: Family Housing: House Alcohol intake: never Patient Tobacco Use Status: Never used Tobacco e-Cigarette/Vaping Use: Never Used Second Hand Smoke Exposure: No service: No Current occupational status: retired Cognitive needs: No Hearing needs: No Vision needs: No Office Procedures Cardiac Device Check Cardiac Device Check Details: Heart failure monitoring. Stable thoracic impedance. No new alerts. [id number] Device Interrogation, cardiac physiologic monitor system Procedure code (CPT) selection complete Assessment & Plan Assessment & Plan (1) ICD (implantable cardioverter-defibrillator), biventricular, in situ: Comment: Medtronic Bi V ICD in place Code(s): Z95.810 - Presence of automatic (implantable) cardiac defibrillator Category: Medical Plan Coding Level of Care Code Procedure Only Diagnoses ICD (implantable cardioverter-defibrillator), biventricular, in situ Z95.810 CPT Codes Cardiac Device Check - Cardiac Device 10: 12420-[id number] Device Interrogation, cardiac physiologic monitor system ([id number])
== END ==
PROVIDERS: PCP Hospitalist; Visit Provider Internal Medicine Cardiovascular Disease
DX: Z45.02 Encounter for adjustment and management of automatic implantable cardiac defibrillator (principal)
CPT/HCPCS: 93295

== ENCOUNTER → 2024-05-08 23:59 | Outpatient (BNV) | payer OTHER, SELFPAY ==
[2023-06-24 10:52] VITALS: BP 112/58; BP 118/58; BMI 26.1
--- NOTE | 2024-05-17 19:19 | A.OFFVIS_ITS ---
Intake Visit Reasons: Remote HF monitoring- Medtronic Allergies No Known Allergies Allergy (Verified 10/27/23 09:42) [facility] Medical History (Updated 10/27/23 @ 13:17 by RADHA Alba) Pacemaker Cerebrovascular accident (CVA) determined by clinical assessment Screening for prostate cancer Screening for colon cancer PAD (peripheral artery disease) Type 2 diabetes mellitus with hypoglycemia Gout CAD (coronary artery disease) GERD (gastroesophageal reflux disease) Type 2 diabetes mellitus with hyperglycemia, with long-term current use of insulin Type 2 diabetes mellitus with diabetic polyneuropathy Hyperlipidemia LDL goal <70 Vitamin D deficiency Essential hypertension Surgical History Hx of removal of cyst History of open heart surgery Family History Mother CVD (cardiovascular disease) Father No problems noted. Other Pacemaker Social History Household Members: Family Housing: House Alcohol intake: never Patient Tobacco Use Status: Never used Tobacco e-Cigarette/Vaping Use: Never Used Second Hand Smoke Exposure: No service: No Current occupational status: retired Cognitive needs: No Hearing needs: No Vision needs: No Office Procedures Cardiac Device Check Cardiac Device Check Details: HF monitoring Stable thoracic impedance. [id number] Device Interrogation, cardiac physiologic monitor system Procedure code (CPT) selection complete Assessment & Plan Assessment & Plan (1) Cardiomyopathy: Code(s): I42.9 - Cardiomyopathy, unspecified Category: Medical Plan: Medications: Refilled tamsulosin 0.4 mg PO DAILY 90 caps 3RF Coding Level of Care Code Procedure Only Diagnoses Cardiomyopathy I42.9 CPT Codes Cardiac Device Check - Cardiac Device 10: 98724-Vruloes Device Interrogation, cardiac physiologic monitor system ([id number])
== END ==
PROVIDERS: PCP Hospitalist; Visit Provider Internal Medicine Cardiovascular Disease
DX: I42.9 Cardiomyopathy, unspecified (principal); Z95.810 Presence of automatic (implantable) cardiac defibrillator
CPT/HCPCS: 93297

== ENCOUNTER 2024-05-12 12:41 | Outpatient (REF) | payer OTHER, SELFPAY ==
[2023-06-24 10:52] VITALS: BP 112/58; BP 118/58; BMI 26.1
== END 2024-05-12 12:42 | disposition home or self-care (01) ==
LOC: HO.LAB 12:41
PROVIDERS: PCP Hospitalist; Visit Provider Internal Medicine
DX: N30.01 Acute cystitis with hematuria (principal)
CPT/HCPCS: 87086

== ENCOUNTER → 2024-06-07 23:59 | Outpatient (BNV) | payer OTHER, SELFPAY ==
[2023-06-24 10:52] VITALS: BP 112/58; BP 118/58; BMI 26.1
--- NOTE | 2024-06-17 18:29 | MHC.OFFVIS ---
Intake Visit Reasons: Remote HF monitoring- Medtronic Allergies No Known Allergies Allergy (Verified 10/27/23 09:42) [facility] Medical History (Updated 10/27/23 @ 13:17 by RADHA Alba) Pacemaker Cerebrovascular accident (CVA) determined by clinical assessment Screening for prostate cancer Screening for colon cancer PAD (peripheral artery disease) Type 2 diabetes mellitus with hypoglycemia Gout CAD (coronary artery disease) GERD (gastroesophageal reflux disease) Type 2 diabetes mellitus with hyperglycemia, with long-term current use of insulin Type 2 diabetes mellitus with diabetic polyneuropathy Hyperlipidemia LDL goal <70 Vitamin D deficiency Essential hypertension Surgical History (Reviewed 01/26/24 @ 14:38 by Anita Noble [facility]) Hx of removal of cyst History of open heart surgery Family History Mother CVD (cardiovascular disease) Father No problems noted. Other Pacemaker Social History (Reviewed 01/26/24 @ 14:38 by Anita Noble [facility]) Household Members: Family Housing: House Alcohol intake: never Patient Tobacco Use Status: Never used Tobacco e-Cigarette/Vaping Use: Never Used Second Hand Smoke Exposure: No service: No Current occupational status: retired Cognitive needs: No Hearing needs: No Vision needs: No Office Procedures Cardiac Device Check Cardiac Device Check Details: BiV AICD Good battery life WIRE FRAME DIPPER>99.9% Stable thoracic imepdance. [id number]-YO Cardiac Device Check, multi lead implantable defibrillator Procedure code (CPT) selection complete Assessment & Plan Assessment & Plan (1) ICD (implantable cardioverter-defibrillator), biventricular, in situ: Comment: Medtronic Bi V ICD in place Code(s): Z95.810 - Presence of automatic (implantable) cardiac defibrillator Category: Medical Plan: Coding Level of Care Code Procedure Only Diagnoses ICD (implantable cardioverter-defibrillator), biventricular, in situ Z95.810 CPT Codes Cardiac Device Check - Cardiac Device 6: 52162-NW Cardiac Device Check, multi lead implantable defibrillator ([id number])
== END ==
PROVIDERS: PCP Hospitalist; Visit Provider Internal Medicine Cardiovascular Disease
DX: Z95.810 Presence of automatic (implantable) cardiac defibrillator (principal)
CPT/HCPCS: 93297

== ENCOUNTER 2024-07-26 11:21 | Outpatient (REF) | payer OTHER, SELFPAY ==
[2024-07-12 11:49] VITALS: BP 112/58; BP 118/58; BMI 26.1
[2024-07-26 12:12] LABS: Estimated Average Glucose 189 mg/dL; Hemoglobin A1C 248.8927 umol/L; Hemoglobin A1c % 8.2 % (<6.0); Total Hemoglobin (HGBA1C) 3751.4491 umol/L
[2024-07-26 12:27] LABS: Alanine Aminotransferase 24 U/L (0-40); Albumin Level 4.2 g/dL (3.5-5.0); Alkaline Phosphatase 62 U/L (39-117); Anion Gap 11 (12-20); Aspartate Amino Transferase 28 U/L (5-37); Bilirubin Total 0.9 mg/dL (0.0-1.0); Blood Urea Nitrogen 19 mg/dL (9-16); Calcium 9.8 mg/dL (8.4-10.2); Carbon Dioxide 30 mmol/L (22-29); Chloride 106 mmol/L (96-108); Cholesterol 126 mg/dL (<200); Estimated Glomerular Filt Rate > 60; Glucose Random 171 mg/dL (60-115); HDL Cholesterol 28 mg/dL (>40); LDL Cholesterol Calculated 59 mg/dL (<100); Sodium 142 mmol/L (135-145); Total Protein 8.6 g/dL (6.5-8.0); Triglycerides 197 mg/dL (<150)
--- OUTSIDE RECORDS SUMMARY | 2024-07-26 12:38 | XMS_ITS ---
Author Organization [facility] Address [address] [place] [address] Care Team Providers Care State Editor Name Role Phone MAYE MALIK Primary Care Provider [phone] REASON FOR VISIT Freestyle Gallito Medications Medication SIG (Take, Route, Fr equency, Duration) Notes Start Date End Date Status Accu-Chek Nelly Plus - 1 strip DX: E11.8 In Vitro four times daily for 360 days 07/23/2023 Ac tive Encounters Encounter Location Date Provider Diagnosis [facility] [address] [place] [address] 05/07/2024 MAYE MALIK Plan Of Treatment Medication Medication Name Sig Start Date Stop Date Notes Accu-Chek Nelly Plus - 1 strip DX: E11.8 In Vitro four times daily for 360 days 07/23/2023 Next Appt Details Provider Name:MAYE MALIK , 10/28/2024 10:00:00 AM, [address] [place] [address] [address], [place], [address], Progress Notes * Keren DUONG RDOB:[birth year] (73 yo M)Acc No.[id number]:05/07/2024 Patient:?Keren DUONG :1950???Age:73 Y???Sex:Male Address:[address] [place], [place] [address], [address] * Refills? Refill Accu-Chek Nelly Plus Strip, -, In Vitro, 360, 1 strip DX: E11.8, four times daily, 360 days, Refills=3 Subjective: * Chief Complaints: * ???Freeanibal Conti * Medical History:? * Surgical History:? * Hospitalization/Major Diagno stic Procedure:? * Medications:? Objective: * Vitals:? * Physical Examination:? Assessment: Plan: * Treatment: * Procedure Codes:? * true * Date:? Generated for Anisha peña/Tray/eTransmitting on:?07/26/2024 12:38 PM EST
--- OUTSIDE RECORDS SUMMARY | 2024-07-26 12:38 | XMS_ITS ---
Author Name Gui GONSALESClintonna Address [address] [place] [address] Phone [phone] Organization [facility] Care Team Providers Care Dba Name Role Phone Ana Messer Unavailable [phone] Unavailable Unavailable Unavailable MAYE WRIGHT Unavailable [phone] LOU CRUZ Unavailable [phone] JOSEMANUEL LINDA Unavailable [phone] Maye Machuca Unavailable [phone] Reason for Referral Not Available Allergies, adverse reactions, alerts No known allergies History of medication use Medication Class Instructions Start Date End Date Gabapentin 300 mg Cap TAKE 1 CAPSULE BY MOUTH THREE TIMES A DAY FOR 90 DAYS 2021-09-20 No Data Available Atorvastatin Calcium 40 mg Tab TAKE 1 TABLET BY MOUTH EVERY DAY 2021-11-02 No Data Available Carvedilol 12.5 mg Tab TAKE 1 TABLET BY MOUTH W/ FOOD BID 2021-04-12 No Data Available Trulicity 3 mg/0.5ML Solutio n Pen-injector DIRECTED SUBCUTANEOUS WEEKLY 2021-11-13 No Data Available Omeprazole 20 mg Cap delayed rel TAKE 1 CAPSULE BY MOUTH EVERY DAY 30 MINUTES BEFORE MORNING MEAL FOR 30 DAYS 2021-10-04 No Data Available Amoxicillin-Pot Clavulanate 875/125 mg Tab TAKE 1 TABLET BY MOUTH EVERY 12 HOURS FOR 7 DAYS 2021-12-06 No Data Available Fluticasone Propionate 50 MCG/ACT Suspension SPRAY 1 SPRAY INTO EACH NOSTRIL EVERY DAY FOR 30 DAYS 2021-12-06 No Data Available Lisinopril 2.5 mg Tab TAKE 1 TABLET BY M OUTH EVERY DAY FOR 30 DAYS 2021-12-11 2022-09-02 Cilostazol 100 mg Tab TAKE 1 TABLET BY M OUTH TWICE A DAY 2021-11-16 No Data Available [facility] ASPIRIN EC 81 MG TABLET TAKE 1 TABLE T BY MOUTH EVERY DAY FOR 90 DAYS 2022-02-14 No Data Available Lubiprostone 24 MCG Cap TAKE 1 CAPSULE B Y MOUTH TWICE A DAY. 2021-04-12 No Data Available HumaLOG KwikPen 100 UNIT/ML Solution Pen-injector SLIDING SCALE 10-14 UNITS SUBCUTANEOUS ONCE A DAY 30 DAYS 2022-04-03 No Data Available Docusate Sodium 100 mg Cap 1 capsule daily 2022-08-09 No Data Available BD UF SHORT PEN NEEDLE [id number] DIRECTED SUBQ ONCE DAILY 30 DAYS 2022-04-08 2022-09-12 Sildenafil Citrate 25 mg Tab TAKE 1 TABL ET BY MOUTH EVERY DAY NEEDED FOR 30 DAYS 2022-04-03 No Data Available Levocetirizine Dihydrochloride 5 mg Tab TAKE 1 TABLET BY MOUTH EVERY DAY IN THE EVENING FOR 90 DAYS 2022-05-13 No Data Available Aspirin Low Dose 81 mg Tab delayed rel TAKE 1 TABLET BY MOUTH EVERY DAY FOR 90 DAYS 2022-02-14 No Data Available Eliquis 5 mg Tab TAKE 1 TABLET BY JOJO TH TWICE A DAY FOR 30 DAYS 2022-07-11 No Data Available Acetaminophen-Codeine 300/30 mg Tab TAKE 1 TABLET BY MOUTH 3 TIMES DAILY NEEDED 2022-07-17 No Data Available Amoxicillin 500 mg Cap TAKE 1 CAPSULE BY MOUTH 3 TIMES DAILY UNTIL FINISHED 2022-07-17 No Data Available Ibuprofen 800 mg Tab TAKE 1 TABLET BY MO UTH EVERY 4 TO 6 HOURS NEEDED FOR PAIN 2022-07-17 No Data Available Tamsulosin 0.4 mg Cap TAKE 1 CAPSULE BY MOUTH EVERY DAY 2022-08-05 No Data Available Entresto 24/26 mg Tab TAKE 1 TABLET BY M OUTH TWICE DAILY. CHECK BP IN THE MORNING. IF SBP IS <110 HOLD ENTRESTO. 2022-09-01 No Data Available Isosorbide Mononitrate ER 30 mg Tab ER 24hr TAKE 3 TABLETS BY MOUTH ONCE DAILY.HOLD IF BP <110 2022-09-01 No Data Available Lantus SoloStar 100 UNIT/ML Solution Pen-injector GIVE 35 UNITS SUBCUTANEOUSLY EVERY DAY AT BEDTIME 2022-09-01 No Data Available Problem List Problem Status Onset Date Resolved Date Type 2 diabetes mellitus with hyperlipidemia Active 2022-04-09 N/A Essential hypertension Active 2022-04-09 N/A GERD (gastroesophageal reflux disease) Active 06-04-25 N/A Constipation Active 2022-04-09 N/A Peripheral vascular disease, unspecified Active 2022-04-09 N/A Encounters Encounters Type Facility Date of Service Diagnosis/Co mplaint Medication List Documented (1159F) [facility] ([place] Medication List Documented (1159F) [facility] ([place] Medication List Documented (1159F) [facility] [place] Medication List Documented (1159F) [facility] [place] Medication List Documented (1159F) [facility] [place] Medication List Documented (1159F) [facility] [place] Medication List Documented (1159F) [facility] [place]22 Medication List Documented (1159F) [facility] [place]2022 Medication List Documented (1159F) [facility] [place]2022 Type 2 diabetes w diabetic peripheral angiopath w/o gangreneType 2 diabetes mellitus with other specified complicationHyperlipidemia, unspecifiedEssential (primary) hypertensionGastro-esophageal reflux disease without esophagitisConstipation, unspecifiedLong term (current) use of insulin RN, CN or CP time with patient by phone; use with 1111F, BP, A1c or other CPTII codes [facility] ([place] 09[place]2022 Encounter for other specifie d aftercare RN, CN or CP time with patient by phone; use with 1111F, BP, A1c or other CPTII codes [facility] [place] 09[place]2022 Vital Signs Date of Collection Vitals 2022-04-09 06:12:57 Height - 172.72 cmWe ight - 70.31 kgBody Mass Index (BMI) - 23.57 kg/m2BP Diastolic - 80.0 mm[Hg]BP Systolic - 140.0 mm[Hg] Social History Social History Social History Observation Description Effec tive Time Current Smoking Status Never smoker 2024-07-17 0 Sex Male History of Procedures Procedures Service Procedure code Service date Servicing provider Phone# Medication List Documented (1159F) 1159F 2022-04-09 No Data Available No Data Henrietta ilable Medication Review by prescribing provider or pharmacist documented (1160F) 1160F 2022-04-09 No Data Available No Data Henrietta ilable Functional Status Assessed (1170F) 1170F 2022-04-09 No Data Available No Data Avail able Advance Care Directive Advance care planning discussion documented in the medical record (1158F) 1158F 2022-04-09 No Data Available No Data Availa ble BMI obtained (3008F) 3008F 2022-04-09 No Data Availab le No Data Available SBP >= 140 3077F 2022-04-09 No Data Available No Data Available DBP 80-89 (3079F) 3079F 2022-04-09 No Data Available No Data Available Pain Assessment - Pain Documented on a Pain Scale (1125F) 1125F 2022-04-09 No Data Available No Data Henrietta ilable New patient, 30-44min 1 stable chronic or 2 minor; add modifier 95 for video, modifier 93 for phone [id number] 2022-04-09 No Data Available No Data Available RN, CN or CP time with patient by phone; use with 1111F, BP, A1c or other CPTII codes 09277 2022-09-02 No Data Available No Data Avai lable Medications prescribed in hospital were reviewed and reconciled against what they were taking prior to admission during today's visit. (1111F) 1111F 2022-09-02 No Data Available No Data Availa ble Functional Status Functional Category Effective Dates Cane and walker, has a wheel chair - doesn't like to use unless he has to 2022-04-09 Shower chair - family assist 2022-04-09 Son and family are caregivers 2022-04-09 Mental Status Status Date Periods of forgetfulness. Confused at ti mes. Comes and goes 2022-04-09 Assessments Date of Service Assessments 2022-04-09 06:12:57 Type 2 diabetes shahnaz itus with hyperlipidemiaEssential hypertensionGERD (gastroesophageal reflux disease)ConstipationPeripheral vascular disease, unspecified Plan of Care Date of Service Plans 2022-04-09 06:12:57 Medication Review by prescribing provider or pharmacist documented (1160F)Medication List Documented (1159F)Functional Status Assessed (1170F)Advance Care Directive Advance care planning discussion documented in the medical record (1158F)BMI obtained (3008F)SBP >= 140DBP 80-89 (3079F)Pain Assessment - Pain Documented (1125F)Televideo new patient, 30-44min 1 stable chronic or 2 minor; add modifier 95Continue to see PCP. Follow-up with [facility] as needed for any acute or disease education needs that may arise.Atorvastatin daily for hyperlipidemiaHumalog sliding scale, Trulicity weeklyEndo: Lou RonderosCarvedilol and LisinoprilBP at home- checks daily. Usually 140/80s. Son believes he sees Cardiology yearly, but unable to recall provider name. Follows: Josemanuel Linda - PCPOmeprazole dailyAvoid spicy, fried/greasy foods, and eating late at night and lying down to avoid acid reflux.Follow: Josemanuel LindaAmitiza dailyFollows: Dr. LindaCilostazol 100mg BID Follow: Cardiology yearly per sonDr. Linda -PCP [id number].Take all medications as prescribedFollow up with providers as recommendedYou feel sick or illYou notice a change in behaviorYou have questions or concernsTry eating a healthy low sugar dietContinue checking BP and glucose daily at home - reporting changes to CB and/or PCP 2022-09-02 06:09:26 09/04/2022 at 9:00 A M Goals Date Goal 2022-04-09 Remember to 2022-04-09 Call me if 2022-04-09 Keep it up
--- OUTSIDE RECORDS SUMMARY | 2024-07-26 12:39 | XMS_ITS ---
Author Organization [facility] Address [address] [place] [address] Care Team Providers Care Catering Manager Name Role Phone MAYE MALIK Primary Care Provider Allergies No Known Allergies Reason For Referral Reason Diabetic foot care please evaluate and treat Diagnosis 1 Type 2 diabetes shahnaz itus with foot ulcer (E11.621) Referral Organization [facility] [address] Referring Provider First Name MAYE Referring Provider Last Name KING Referring Provider Speciality Internal M edicine Referred Provider Specialty Podiatry General Notes REFERRAL WAS FAXED [facility]. PLEASE CONTACT PATIENT FOR SCHEDULING.Rgoer Rashida 07/12/2024 11:32:45 AM > Referral Priority Routine REASON FOR VISIT 4 month f/u Medications Medication SIG (Take, Route, Frequency, Duration) Notes Start Date End Date Status Viagra 25 MG 1 tablet as needed Orally Once a day for 30 day(s) 01/02/2022 Not-Taking Lubiprostone 24 MCG 1 capsule with food and water Orally Twice a day for 30 day(s) 09/20/2021 Not-Taking Pen Bel Al[place] 31G X 8 MM as directed subq once daily for 30 days 04/08/2022 Not-Taking Bydureon BCise 2 MG/0.85ML 2 mg Subcutaneous once a week for 90 days 05/01/2022 Unknown Ozempic (0.25 or 0.5 MG/DOSE) 2 MG/1.5ML 0.25 mg for 1 month then increase to 0.5 mg Subcutaneous once a week for 30 days Not-Taking Tylenol 8 Hour 650 MG 2 tablets as neede d Orally every 8 hrs Not-Taking Fish Oil 1000 MG 1 capsule Orally Onc e a day Not-Taking Cilostazol 100 MG 1 tablet 30 minutes before or 2 hours after breakfast and dinner Orally Twice a day for 30 day(s) Not-Taking Augmentin 500-125 MG 1 tablet Orally mara ry 12 hrs for 7 day(s) 12/06/2021 Not-Taking Augmentin 875-125 MG 1 tablet Orally mara ry 12 hrs for 7 day(s) 04/03/2022 Not-Taking Nitroglycerin 0.4 MG Take 1 pill if no improvement take another pill after 5 minutes and if no improvement take another pill after 5 minutes and call MD Sublingual Once a day for 30 day(s) Not-Taking Mounjaro 12.5 MG/0.5ML inject 10 mg Subcutaneous once a week for 30 days Not-Taking Amoxicillin 500 MG 1 capsule Orally mara ry 8 hrs for 5 day(s) Not-Taking Levocetirizine Dihydrochloride 5 MG 1 tablet in the evening Orally Once a day for 90 days Not-Taking TobraDex 0.3-0.1 % 1 drop into affected eye Ophthalmic every 6 hrs for 7 days Not-Taking Accu-Chek Nelly Plus - 1 strip DX: E11.8 In Vitro four times daily for 360 days 07/23/2023 Active levoFLOXacin 500 MG 1 tablet Orally Once a day for 5 days 05/07/2024 Active Omeprazole 20 MG TAKE 1 CAPSULE BY [facility] EVERY DAY 30 MINUTES BEFORE MORNING MEAL FOR 30 DAYS for 90 days Active Fluticasone Propionate 50 MCG/ACT INSTILL 1 SPRAY INTO EACH NOSTRIL ONCE DAILY for 90 Active FreeStyle Gallito 3 Sensor - Change every 14 days; DX: E11.8 for 30 days Active Vitamin D3 25 MCG (1000 UT) 1 tablet Orally Once a day for 90 days Active Mounjaro 15 MG/0.5ML as directed Subcutaneous weekly for 30 days Active Lantus SoloStar 100 UNIT/ML INJECT 25 UNITS SUBCUTANEOUSLY ONCE A DAY Active FreeStyle Gallito 2 Sensor - Appy to arm every 14 days, dx: E11.8 for 30 days Active Attends Breathable Briefs Med Change up to 6 times daily Dx: N39.46 for 90 days 04/14/2024 Active Gabapentin 300 MG TAKE 1 CAPSULE BY [facility] THREE TIMES A DAY for 90 Active HumaLOG KwikPen 100 UNIT/ML sliding scale 10-14 units Subcutaneous once a day for 30 days Active Medical Compression Stockings - Apply daily 25-30 mm DX: R60.9 for 30 days 10/21/2023 Active Atorvastatin Calcium 40 MG 1 tablet Orally Once a day for 90 days Active one touch verio test strips - test blood sugars 3 times daily dx: E11.9 for 30 days 08/28/2023 Active Aspirin Adult Low Dose 81 MG 1 tablet Orally Once a day for 90 days Active Carvedilol 12.5 MG 1 tablet with food Orally Twice a day for 30 days Active Eliquis 5 MG 1 tablet Orally Twic e a day for 30 day(s) 07/11/2022 Active Entresto 24-26 MG 1 tablet Orally Twic e a day for 30 day(s) 12/13/2022 Active Furosemide 20 MG 1 tablet Orally Once a day for 90 days 06/29/2024 Active Docusate Sodium 100 MG 1 capsule as need ed Orally Once a day 01/15/2023 Active Finasteride 5 MG 1 tablet Orally Once a day Active metFORMIN HCl 1000 MG 1 tablet with a me al Orally 2 times a day Active Tamsulosin HCl 0.4 MG 1 capsule Orally O nce a day 01/15/2023 Active Social History Tobacco Use: Social History Observation Description Date Details (start date - stop date) Never Smoker NA - NA Tobacco Use/Smoking Question Answer Notes Are you a nonsmoker Alcohol Screen (Audit-C) Question Answer Notes Did you have a drink containing alcohol in the p ast year? No Points 0 Interpretation Negative Vital Signs Temperature 96.7 degrees Fahrenheit 06/29/19 25 Oximetry 99 % 06/29/2024 Heart Rate 88 /min 06/29/2024 Blood pressure systolic 110 mm Hg 06/29/19 25 Blood pressure diastolic 69 mm Hg 025 Weight 173.2 lbs 06/29/2024 BMI 26.33 kg/m2 06/29/2024 Height 5'8'' in 06/29/2024 Encounters Encounter Location Date Provider Diagnosis [facility] [address] [address] 06/29/2024 MAYE MALIK Atherosclerotic hear t disease of [place] coronary artery without angina pectoris I25.10 ; Type 2 diabetes mellitus with unspecified complications E11.8 ; Essential (primary) hypertension I10 ; Mixed hyperlipidemia E78.2 ; Male erectile dysfunction, unspecified N52.9 and Cardiomyopathy, unspecified I42.9 Assessments Encounter Date Diagnosis (ICD Code) Assessment Notes Treatment Notes Treatment Clinical Notes Section Notes 06/29/2024 Atherosclerotic heart disease of [place] coronary artery without angina pectoris (ICD-10 - I25.10) is 73 years old pleasant gentleman with coronary artery disease and follows with Dr. Martell, , hypertension, hyperlipidemia, insulin-dependent DM type II, cardiomyopathy and status post ICD placement, BPH, constipation is here for follow-up. He also has diabetic neuropathy. Plan is as follows Coronary artery disease/cardiomyo sherin/hypertensio n/hyperlipidemia. He is status post ICD placement and follows up with special officer at [facility] and he is stable. He is given a prescription of lisinopril 20 mg 1 tablet daily and was advised to have daily weights and have follow-up blood work after 1 week to monitor renal function and electrolytes. He is on Entresto 24/26 mg, carvedilol 12.5 mg twice a day, atorvastatin 40 mg daily. Atrial fibrillation. He is rate controlled and he is on Eliquis 5 mg 1 tablet twice a day along with aspirin 81 mg daily which she is tolerating fine Insulin-dependent DM type II with neuropathy. He is currently on long-acting insulin 25 units along with sliding scale and he is also on Mounjaro 15 mg every weekly. Check A1c in 3 months. He is seen loss prevention/safety district manager. He is given referral to mothercraft nurse. BPH/erectile dysfunction. Currently on Flomax 0.4 mg along with finasteride 5 mg daily.. Screening blood work ordered 06/29/2024 Type 2 diabetes mellitus with unspecified complications (ICD-10 - E11.8) is 73 years old pleasant gentleman with coronary artery disease and follows with Dr. Martell, , hypertension, hyperlipidemia, insulin-dependent DM type II, cardiomyopathy and status post ICD placement, BPH, constipation is here for follow-up. He also has diabetic neuropathy. Plan is as follows Coronary artery disease/cardiomyo sherin/hypertensio n/hyperlipidemia. He is status post ICD placement and follows up with special officer at [facility] and he is stable. He is given a prescription of lisinopril 20 mg 1 tablet daily and was advised to have daily weights and have follow-up blood work after 1 week to monitor renal function and electrolytes. He is on Entresto 24/26 mg, carvedilol 12.5 mg twice a day, atorvastatin 40 mg daily. Atrial fibrillation. He is rate controlled and he is on Eliquis 5 mg 1 tablet twice a day along with aspirin 81 mg daily which she is tolerating fine Insulin-dependent DM type II with neuropathy. He is currently on long-acting insulin 25 units along with sliding scale and he is also on Mounjaro 15 mg every weekly. Check A1c in 3 months. He is seen loss prevention/safety district manager. He is given referral to [facility] nurse. BPH/erectile dysfunction. Currently on Flomax 0.4 mg along with finasteride 5 mg daily.. Screening blood work ordered 06/29/2024 Essential (primary) hypertension (ICD-10 - I10) is 73 years old pleasant gentleman with coronary artery disease and follows with Dr. Martell, , hypertension, hyperlipidemia, insulin-dependent DM type II, cardiomyopathy and status post ICD placement, BPH, constipation is here for follow-up. He also has diabetic neuropathy. Plan is as follows Coronary artery disease/cardiomyo sherin/hypertensio n/hyperlipidemia. He is status post ICD placement and follows up with special officer at [facility] and he is stable. He is given a prescription of lisinopril 20 mg 1 tablet daily and was advised to have daily weights and have follow-up blood work after 1 week to monitor renal function and electrolytes. He is on Entresto 24/26 mg, carvedilol 12.5 mg twice a day, atorvastatin 40 mg daily. Atrial fibrillation. He is rate controlled and he is on Eliquis 5 mg 1 tablet twice a day along with aspirin 81 mg daily which she is tolerating fine Insulin-dependent DM type II with neuropathy. He is currently on long-acting insulin 25 units along with sliding scale and he is also on Mounjaro 15 mg every weekly. Check A1c in 3 months. He is seen loss prevention/safety district manager. He is given referral to [employer] nurse. BPH/erectile dysfunction. Currently on Flomax 0.4 mg along with finasteride 5 mg daily.. Screening blood work ordered 06/29/2024 Mixed hyperlipidemia (ICD-10 - E78.2) is 73 years old pleasant gentleman with coronary artery disease and follows with Dr. Martell, , hypertension, hyperlipidemia, insulin-dependent DM type II, cardiomyopathy and status post ICD placement, BPH, constipation is here for follow-up. He also has diabetic neuropathy. Plan is as follows Coronary artery disease/cardiomyo sherin/hypertensio n/hyperlipidemia. He is status post ICD placement and follows up with special officer at [facility] and he is stable. He is given a prescription of lisinopril 20 mg 1 tablet daily and was advised to have daily weights and have follow-up blood work after 1 week to monitor renal function and electrolytes. He is on Entresto 24/26 mg, carvedilol 12.5 mg twice a day, atorvastatin 40 mg daily. Atrial fibrillation. He is rate controlled and he is on Eliquis 5 mg 1 tablet twice a day along with aspirin 81 mg daily which she is tolerating fine Insulin-dependent DM type II with neuropathy. He is currently on long-acting insulin 25 units along with sliding scale and he is also on Mounjaro 15 mg every weekly. Check A1c in 3 months. He is seen loss prevention/safety district manager. He is given referral to [facility] nurse. BPH/erectile dysfunction. Currently on Flomax 0.4 mg along with finasteride 5 mg daily.. Screening blood work ordered 06/29/2024 Male erectile dysfunction, unspecified (ICD-10 - N52.9) is 73 years old pleasant gentleman with coronary artery disease and follows with Dr. Martell, , hypertension, hyperlipidemia, insulin-dependent DM type II, cardiomyopathy and status post ICD placement, BPH, constipation is here for follow-up. He also has diabetic neuropathy. Plan is as follows Coronary artery disease/cardiomyo sherin/hypertensio n/hyperlipidemia. He is status post ICD placement and follows up with special officer at [facility] and he is stable. He is given a prescription of lisinopril 20 mg 1 tablet daily and was advised to have daily weights and have follow-up blood work after 1 week to monitor renal function and electrolytes. He is on Entresto 24/26 mg, carvedilol 12.5 mg twice a day, atorvastatin 40 mg daily. Atrial fibrillation. He is rate controlled and he is on Eliquis 5 mg 1 tablet twice a day along with aspirin 81 mg daily which she is tolerating fine Insulin-dependent DM type II with neuropathy. He is currently on long-acting insulin 25 units along with sliding scale and he is also on Mounjaro 15 mg every weekly. Check A1c in 3 months. He is seen loss prevention/safety district manager. He is given referral to [employer] nurse. BPH/erectile dysfunction. Currently on Flomax 0.4 mg along with finasteride 5 mg daily.. Screening blood work ordered 06/29/2024 Cardiomyopathy, unspecified (ICD-10 - I42.9) is 73 years old pleasant gentleman with coronary artery disease and follows with Dr. Martell, , hypertension, hyperlipidemia, insulin-dependent DM type II, cardiomyopathy and status post ICD placement, BPH, constipation is here for follow-up. He also has diabetic neuropathy. Plan is as follows Coronary artery disease/cardiomyo sherin/hypertensio n/hyperlipidemia. He is status post ICD placement and follows up with special officer at [facility] and he is stable. He is given a prescription of lisinopril 20 mg 1 tablet daily and was advised to have daily weights and have follow-up blood work after 1 week to monitor renal function and electrolytes. He is on Entresto 24/26 mg, carvedilol 12.5 mg twice a day, atorvastatin 40 mg daily. Atrial fibrillation. He is rate controlled and he is on Eliquis 5 mg 1 tablet twice a day along with aspirin 81 mg daily which she is tolerating fine Insulin-dependent DM type II with neuropathy. He is currently on long-acting insulin 25 units along with sliding scale and he is also on Mounjaro 15 mg every weekly. Check A1c in 3 months. He is seen loss prevention/safety district manager. He is given referral to [employer] nurse. BPH/erectile dysfunction. Currently on Flomax 0.4 mg along with finasteride 5 mg daily.. Screening blood work ordered Plan Of Treatment Medication Medication Name Sig Start Date Stop Date Notes Furosemide 20 MG 1 tablet Orally Once a day for 90 days Future Test Test Name Order Date Hemoglobin [id number] 06/29/2024 Albumin/Creatinine Ratio,[id number] Lipid [id number] 06/29/2024 Comp. Metabolic Panel [id number] 2024 Referrals Referral Date Details 06/29/2024 06/29/2024, Diabetic foot care please evaluate and treat Next Appt Details Follow Up: 4 Months, Reason: Provider Name:VILLAVICENCIO Joseph MALIK , 10/28/2024 10:00:00 AM, [address] [address], [place], [address], Progress Notes * Keren DUONG RDOB:[birth year] (73 yo M)Acc No.[id number]:06/29/2024 Progress Notes Patient:?Keren DUONG R Provider:?MAYE MALIK MD :1950???Age:73 Y???Sex:Male Mahad e:06/29/2024 Address:[address] [place], [place] [id number] Subjective: * Chief Complaints: * ???4 month f/u * HPI: ???Internal Medicine:?Mr. Duong is a 73-year-old gentleman with insulin-dependent DM2 with neuropathy, hypertension, hyperlipidemia, PVD, GERD, CAD s/p CABG x3, ICD placement? is here? follow up.? He was recently treated for UTI and he feels much better.? He monitors his blood sugar at home which are within reasonable limits.? He saw cardiology last month and he is stable on current regimen. He was prescribed Lasix 20 mg daily which he is not taking.? He has mild bilateral pedal edema.? He uses a cane to walk.? No history of falls.? He needs help with activities of daily living at times.? He does not appear to be anxious or depressed.? No other issues. * ROS:?General/Constitutional:?Overall health?Good.?Change in appetite?denies.?Chills?denies.?Fever?denies.?Night sweats?denies.?Sleep disturbance?denies.?Weight gain?denies.?Weight loss?denies.?Neurologic:?Difficulty speaking?denies.?Dizziness?denies.?Gait abnormality?denies.?Headache?denies.?Loss of strength?denies.?Memory loss?denies.?Seizures?denies.?Tingling/Numbness?denies .?Ophthalmologic:?Blurred vision?denies.?Discharge?denies.?Dry eye?denies.?Red eye?denies.?ENT:?Change in Voice?Denies.?Cold Symptoms?Denies.?Cough?Denies.?Dizziness?Denies.?Nasal Congestion?Denies.?Otalgia?Denies.?postnasal drip?Denies.?Blocked ear?denies.?Nosebleed?denies.?Snoring?denies.?Cardiovascular:?Diaphoresis?Denies.?Pedal Edema?Denies.?PND (Paroxsymal nocturnal dyspnea)?Denies.?Chest pain?denies.?Difficulty laying flat?denies.?Dyspnea on exertion?denies.?Heart murmur?denies.?Orthopnea?denies.?Respiratory:?Snoring?denies.?Asthma?denies.?Cough?denies.?Shortness of breath with exertion?denies.?Sputum production?denies.?Wheezing?denies.?Gastrointestinal:?Change in bowel habits?denies.?Constipation?denies.?Decreased appetite?denies.?Diarrhea?denies.?Heartburn?denies.?Nausea?denies.?Vomiting?tono es.?Musculoskeletal:?tingling/numbness?Denies.?myalgias?Denies.?Joint Swelling?Denies.?extremeties?normal.?Arthritis?denies.?Back problems?denies.?Carpal tunnel?denies.?Joint stiffness?denies.?Muscle aches?denies.?Endocrine:?Bowel Changes?Denies.?Breast Discharge?Denies.?poor libido?Denies.?Cold intolerance?denies.?Excessive sweating?denies.?Excessive thirst?denies.?Frequent urination?denies.?Thyroid problems?denies.?Skin:?Bruising?Denies.?Eczema?denies.?Hair changes?denies.?Rash?denies.?Skin lesion(s)?denies.?Psychiatric:?Anxiety?denies.?Depressed mood?denies.?Difficulty sleeping?denies.?Nervous breakdown?denies.?Substance abuse?denies.?Urology:?abnormal menstrual bleeding?denies.?blood in urine?denies.?burning on urination?denies.?difficulty urinating?denies.?discharge?denies.?dysuria?denies.? * Medical History:? * Surgical History:? * Hospitalization/Major Diagno stic Procedure:? * Family History:?Siblings: di agnosed with Diabetes.? * Social History:?Tobacco Use:?Tobacco Use/Smoking?Are you a?nonsmoker ???Drugs/Alcohol:?Alcohol Screen (Audit-C)?Did you have a drink containing alcohol in the past year??No ?Points?0 ?Interpretation?Negative ?Do you smoke marijuana?: no. ???Miscellaneous:?Exercise: no, walks with a cane, gait instability. ?Marital status: . ?Occupation: Retired. * Medications:?TakingFinasteri de 5 MG Tablet 1 tablet Orally Once a day Docusate Sodium 100 MG Capsule 1 capsule as needed Orally Once a day Tamsulosin HCl 0.4 MG Capsule 1 capsule Orally Once a day metFORMIN HCl 1000 MG Tablet 1 tablet with a meal Orally 2 times a day Aspirin Adult Low Dose 81 MG Tablet Delayed Release 1 tablet Orally Once a day Eliquis 5 MG Tablet 1 tablet Orally Twice a day Carvedilol 12.5 MG Tablet 1 tablet with food Orally Twice a day Entresto 24-26 MG Tablet 1 tablet Orally Twice a day HumaLOG KwikPen 100 UNIT/ML Solution Pen-injector sliding scale 10-14 units Subcutaneous once a day Gabapentin 300 MG Capsule TAKE 1 CAPSULE BY MOUTH THREE TIMES A DAY Atorvastatin Calcium 40 MG Tablet 1 tablet Orally Once a day Medical Compression Stockings - Miscellaneous Apply daily 25-30 mm DX: R60.9 one touch verio test strips - Miscellaneous test blood sugars 3 times daily dx: E11.9 Vitamin D3 25 MCG (1000 UT) Tablet 1 tablet Orally Once a day Lantus SoloStar 100 UNIT/ML Solution Pen-injector INJECT 25 UNITS SUBCUTANEOUSLY ONCE A DAY Mounjaro 15 MG/0.5ML Solution Pen-injector as directed Subcutaneous weekly Attends Breathable Briefs Med Change up to 6 times daily Dx: N39.46 FreeStyle Gallito 2 Sensor - Miscellaneous Appy to arm every 14 days, dx: E11.8 FreeStyle Gallito 3 Sensor - Miscellaneous Change every 14 days; DX: E11.8 levoFLOXacin 500 MG Tablet 1 tablet Orally Once a day Accu-Chek Nelly Plus - Strip 1 strip DX: E11.8 In Vitro four times daily Fluticasone Propionate 50 MCG/ACT Suspension INSTILL 1 SPRAY INTO EACH NOSTRIL ONCE DAILY Omeprazole 20 MG Capsule Delayed Release TAKE 1 CAPSULE BY MOUTH EVERY DAY 30 MINUTES BEFORE MORNING MEAL FOR 30 DAYS Taking Finasteride 5 MG Tablet 1 tablet Orally Once a day Taking Docusate Sodium 100 MG Capsule 1 capsule as needed Orally Once a day Taking Tamsulosin HCl 0.4 MG Capsule 1 capsule Orally Once a day Taking metFORMIN HCl 1000 MG Tablet 1 tablet with a meal Orally 2 times a day Taking Aspirin Adult Low Dose 81 MG Tablet Delayed Release 1 tablet Orally Once a day Taking Eliquis 5 MG Tablet 1 tablet Orally Twice a day Taking Carvedilol 12.5 MG Tablet 1 tablet with food Orally Twice a day Taking Entresto 24-26 MG Tablet 1 tablet Orally Twice a day Taking HumaLOG KwikPen 100 UNIT/ML Solution Pen-injector sliding scale 10-14 units Subcutaneous once a day Taking Gabapentin 300 MG Capsule TAKE 1 CAPSULE BY MOUTH THREE TIMES A DAY Taking Atorvastatin Calcium 40 MG Tablet 1 tablet Orally Once a day Taking Medical Compression Stockings - Miscellaneous Apply daily 25-30 mm DX: R60.9 Taking one touch verio test strips - Miscellaneous test blood sugars 3 times daily dx: E11.9 Taking Vitamin D3 25 MCG (1000 UT) Tablet 1 tablet Orally Once a day Taking Lantus SoloStar 100 UNIT/ML Solution Pen-injector INJECT 25 UNITS SUBCUTANEOUSLY ONCE A DAY Taking Mounjaro 15 MG/0.5ML Solution Pen-injector as directed Subcutaneous weekly [facility] up to 6 times daily Dx: N39.46 Taking FreeStyle Gallito 2 Sensor - Miscellaneous Appy to arm every 14 days, dx: E11.8 Taking FreeStyle Gallito 3 Sensor - Miscellaneous Change every 14 days; DX: E11.8 Taking levoFLOXacin 500 MG Tablet 1 tablet Orally Once a day Taking Accu-Chek Nelly Plus - Strip 1 strip DX: E11.8 In Vitro four times daily Taking Fluticasone Propionate 50 MCG/ACT Suspension INSTILL 1 SPRAY INTO EACH NOSTRIL ONCE DAILY Taking Omeprazole 20 MG Capsule Delayed Release TAKE 1 CAPSULE BY MOUTH EVERY DAY 30 MINUTES BEFORE MORNING MEAL FOR 30 DAYS Not-TakingMounjaro 12.5 MG/0.5ML Solution Pen-injector inject 10 mg Subcutaneous once a week Nitroglycerin 0.4 MG Tablet Sublingual Take 1 pill if no improvement take another pill after 5 minutes and if no improvement take another pill after 5 minutes and call MD Sublingual Once a day Levocetirizine Dihydrochloride 5 MG Tablet 1 tablet in the evening Orally Once a day Amoxicillin 500 MG Capsule 1 capsule Orally every 8 hrs TobraDex 0.3-0.1 % Suspension 1 drop into affected eye Ophthalmic every 6 hrs Augmentin 875-125 MG Tablet 1 tablet Orally every 12 hrs Augmentin 500-125 MG Tablet 1 tablet Orally every 12 hrs Fish Oil 1000 MG Capsule 1 capsule Orally Once a day Tylenol 8 Hour 650 MG Tablet Extended Release 2 tablets as needed Orally every 8 hrs Cilostazol 100 MG Tablet 1 tablet 30 minutes before or 2 hours after breakfast and dinner Orally Twice a day Viagra 25 MG Tablet 1 tablet as needed Orally Once a day Pen [place] 31G X 8 MM Miscellaneous as directed subq once daily Lubiprostone 24 MCG Capsule 1 capsule with food and water Orally Twice a day Ozempic (0.25 or 0.5 MG/DOSE) 2 MG/1.5ML Solution Pen- injector 0.25 mg for 1 month then increase to 0.5 mg Subcutaneous once a week Not-Taking Mounjaro 12.5 MG/0.5ML Solution Pen-injector inject 10 mg Subcutaneous once a week Not-Taking Nitroglycerin 0.4 MG Tablet Sublingual Take 1 pill if no improvement take another pill after 5 minutes and if no improvement take another pill after 5 minutes and call Sublingual Once a day Not-Taking Levocetirizine Dihydrochloride 5 MG Tablet 1 tablet in the evening Orally Once a day Not-Taking Amoxicillin 500 MG Capsule 1 capsule Orally every 8 hrs Not-Taking TobraDex 0.3-0.1 % Suspension 1 drop into affected eye Ophthalmic every 6 hrs Not-Taking Augmentin 875-125 MG Tablet 1 tablet Orally every 12 hrs Not-Taking Augmentin 500-125 MG Tablet 1 tablet Orally every 12 hrs Not-Taking Fish Oil 1000 MG Capsule 1 capsule Orally Once a day Not-Taking Tylenol 8 Hour 650 MG Tablet Extended Release 2 tablets as needed Orally every 8 hrs Not-Taking Cilostazol 100 MG Tablet 1 tablet 30 minutes before or 2 hours after breakfast and dinner Orally Twice a day Not-Taking Viagra 25 MG Tablet 1 tablet as needed Orally Once a day Not-Taking Pen [place] 31G X 8 MM Miscellaneous as directed subq once daily Not-Taking Lubiprostone 24 MCG Capsule 1 capsule with food and water Orally Twice a day Not-Taking Ozempic (0.25 or 0.5 MG/DOSE) 2 MG/1.5ML Solution Pen-injector 0.25 mg for 1 month then increase to 0.5 mg Subcutaneous once a week DiscontinuedJardiance 25 MG Tablet 1 tablet Orally Once a day Discontinued Jardiance 25 MG Tablet 1 tablet Orally Once a day UnknownBydureon BCise 2 MG/0.85ML Auto-injector 2 mg Subcutaneous once a week Medication List reviewed and reconciled with the patientUnknown Bydureon BCise 2 MG/0.85ML Auto-injector 2 mg Subcutaneous once a week Medication List reviewed and reconciled with the patient * Allergies:?N.K.D.A.no[Allerg ies Verified] Objective: * Vitals:?Temp:96.7F, Oxygen s at %:99%, HR:88/min, BP:110/69mm Hg, Wt:173.2lbs, BMI:26.33Index, Ht: 5'8''. * ???Past Orders: ???Lab:COMPREHENSIVE METABOL IC PANEL (Order Date - 05/30/2023) (Collection Date & Time - 05/30/2023 04:28 PM) ? Value Reference Range ?ALBUMIN 4.2 (3.4-4.8) - GM/DL ?ALK PHOS 112 (40-129) - U/L ?BILIRUBIN,TOTAL 0.4 (0-1 .2) - MG/DL ?CALCIUM 9.7 (8.6-10.5) - MG/DL ?BICARBONATE 30 H (22-29) - MMOL/L ?CHLORIDE 102 (98-107) - MMOL/L ?EST GFR NON 74 - ML/MIN/1.73 M2 ?CREATININE 1.1 (0.7-1.2) - MG/DL ?ANION GAP 11 (4-17) - ?GLUCOSE 230 H (70-99) - MG /DL ?AST 30 (0-40) - U/L ?ALT 27 (0-41) - U/L ?POTASSIUM 3.9 (3.6-5.2) - MMOL/L ?SODIUM 143 (133-145) - M MOL/L ?TOTAL PROTEIN 8.2 (6.2-8 .2) - GM/DL ?BUN 25 H (8-23) - MG/DL ?AG RATIO 1.1 - ???Lab:LIPID PANEL (Order Da te - 05/30/2023) (Collection Date & Time - 05/30/2023 04:28 PM) ? Value Reference Range ?LDL CHOLESTEROL, CALCULATED 39 (0-130) - MG/DL ?CHOLESTEROL, TOTAL 121 ( <200) - MG/DL ?HDL CHOL 31 L (>39) - MG/ DL ?NON HDL CHOLESTEROL (CALC) 90 (<160) - MG/DL ?TRIGLYCERIDE 253 H (<150) - MG/DL ???Lab:MICROALBUMIN, URINE ( Order Date - 05/30/2023) (Collection Date & Time - 05/30/2023 04:28 PM) ? Value Reference Range ?MICRO-ALBUMIN 459.0 H (<20) - MG/L ?MALB/CREAT RATIO 1310.3 H (0- 20) - MG/GM ?URINE CREAT FOR MICRO ALBUMIN 35.0 - MG/DL ???Lab:HEMOGLOBIN A1C WITH E ST GLUCOSE (Order Date - 05/30/2023) (Collection Date & Time - 05/30/2023 04:28 PM) ? Value Reference Range ?HEMOGLOBIN A1C 8.5 H (4.0- 5.6) - % ?ESTIMATE AVERAGE GLUCOSE 197 - MG/DL * Examination: ???General Examination: ?Psychiatry?Normal.?GENERAL APPEARANCE:?Well developed, well nourished, in no acute distress.?MUSCULOSKELETAL:?Normal.?HEAD:?Normocephalic, atraumatic.?EYES:?Pupils equal, round, reactive to light and accommodation, sclera non-icteric.?EARS:?Normal.?ORAL CAVITY:?Normal.?THROAT:?Clear.?OROPHARYNX?Normal.?SINUSES?Normal.?NECK/THYROID:?Neck supple, full range of motion, no cervical lymphadenopathy.?SKIN:?Warm and dry, no suspicious lesions.?HEART:?S1, S2 normal regular rate and rhythm no murmurs, rubs, gallops .?LUNGS:?clear anteriorly and posteriorly good air movement no wheezes, rales, rhonchi .?BREASTS:?__.?ABDOMEN:?Soft, nontender, nondistended, bowel sounds present, normal.?EXTREMITIES:?Normal.?PERIPHERAL PULSES:?Normal.?NEUROLOGIC:?Nonfocal,? appropriate?motor strength normal upper and lower extremities, sensory exam intact.?FEMALE GENITOURINARY:?__.?MALE GENITOURINARY:?__.?PODIATRIC:?Normal.?Practice Advisor? .? Assessment: * Assessment: 1.?Atherosclerotic heart dis ease of [place]nine [place] coronary artery without angina pectoris - I25.10 (Primary)???2.?Type 2 diabetes mellitus with unspecified complications - E11.8???3.?Essential (primary) hypertension - I10???4.?Mixed hyperlipidemia - E78.2???5.?Male erectile dysfunction, unspecified - N52.9???6.?Cardiomyopathy, unspecified - I42.9??? is 73 years old plea liza gentleman with coronary artery disease and follows with Dr. Martell, , hypertension, hyperlipidemia, insulin-dependent DM type II, cardiomyopathy and status post ICD placement, BPH, constipation is here for follow-up.? He also has diabetic neuropathy.? Plan is as follows Coronary artery disease/cardiomyopathy/hypertension/hyperlipidemia.? He is status post ICD placement and follows up with special officer at [facility] and he is stable.? He is given a prescription of lisinopril 20 mg 1 tablet daily and was advised to have daily weights and have follow-up blood work after 1 week to monitor renal function and electrolytes.? He is on Entresto 24/26 mg, carvedilol 12.5 mg twice a day, atorvastatin 40 mg daily. Atrial fibrillation.? He is rate controlled and he is on Eliquis 5 mg 1 tablet twice a day along with aspirin 81 mg daily which she is tolerating fine Insulin-dependent DM type II with neuropathy.? He is currently on long-acting insulin 25 units along with sliding scale and he is also on Mounjaro 15 mg every weekly.? Check A1c in 3 months.? He is seen loss prevention/safety district manager.? He is given referral to mothercraft nurse. BPH/erectile dysfunction.? Currently on Flomax 0.4 mg along with finasteride 5 mg daily.. Screening blood work ordered Plan: * Treatment: 2.?Type 2 diabetes mellitus with unspecified complications?LAB: Hemoglobin [id number] (Ordered for 06/29/2024) 3.?Cardiomyopathy, unspecifi ed? Start Furosemide Tablet, 20 MG, 1 tablet, Orally, Once a day, 90 days, 90 Tablet, Refills 2.?? 4.?Others? Referral To:Podiatry ?Reason:Diabetic foot care * Procedure Codes:?G2211 Compl ex e/m visit add on * Follow Up:?4 Months * * Sign off status: Completed true * Provider:?MAYE MALIK MD Date:?06/29 Generated for Anisha peña/Tray/Dcitting on:?07/26/2024 12:39 PM EST History and Physical Notes * HPI (History of Present Illness) Category Sub-Category Detail Notes Category Not es Internal Medicine Mr. Seun coy s a 73-year-old gentleman with insulin-dependent DM2 with neuropathy, hypertension, hyperlipidemia, PVD, GERD, CAD s/p CABG x3, ICD placement is here follow up. He was recently treated for UTI and he feels much better. He monitors his blood sugar at home which are within reasonable limits. He saw cardiology last month and he is stable on current regimen. He was prescribed Lasix 20 mg daily which he is not taking. He has mild bilateral pedal edema. He uses a cane to walk. No history of falls. He needs help with activities of daily living at times. He does not appear to be anxious or depressed. No other issues Examination Category Sub-Category Detail Notes Category Not es General Examination GENERAL APPEARANCE: Well dev eloped, well nourished, in no acute distress HEAD: Normocephalic, atrau matic EYES: Pupils equal, round, reactive to light and accommodation, sclera non-icteric EARS: Normal THROAT: Clear NECK/THYROID: Neck supple, full ra nge of motion, no cervical lymphadenopathy HEART: S1, S2 normal regula r rate and rhythm no murmurs, rubs, gallops LUNGS: clear anteriorly and posteriorly good air movement no wheezes, rales, rhonchi ABDOMEN: Soft, nontender, non distended, bowel sounds present, normal NEUROLOGIC: Nonfocal, appropriat e motor strength normal upper and lower extremities, sensory exam intact SKIN: Warm and dry, no caio picious lesions EXTREMITIES: Normal PERIPHERAL PULSES: Normal BREASTS: __ MUSCULOSKELETAL: Normal MALE GENITOURINARY: __ FEMALE GENITOURINARY: __ ORAL CAVITY: Normal PODIATRIC: Normal Psychiatry Normal OROPHARYNX Normal SINUSES Normal Practice Advisor Consultation Request Notes Referral Date Referring Provider Referred Provider Not es 06/29/2024 MAYE MALIK , Diabetic foot care please evaluate and treat
--- OUTSIDE RECORDS SUMMARY | 2024-07-26 12:39 | XMS_ITS | Clinical Summary ---
Author Organization [facility] Address [address] [place] [address] Care Team Providers Care Commercial Lines Account Assistant Name Role Phone Mary Machuca MD Primary Care Provider [phone] Surgical History Surgery Date Site/Laterality Comments CORONARY ARTERY BYPASS GRAFT PROCEDURE: HISTORICAL CABG; COMMENT: x3 Medical History Medical History Date Comments Type 2 diabetes mellitus wit h unspecified complications (CMS/HCC) DX:Type 2 diabetes mellitus with unspecified complications (HCC) Tinnitus, bilateral DX:Tinnitus, bilateral Gastro-esophageal reflux dis ease without esophagitis DX:Gastro-esophageal reflux disease without esophagitis Male erectile dysfunction, unspecified DX:Male erectile dysfunction, unspecified Other abnormalities of gait and mobility DX:Other abnormalities of gait and mobility SHAW (obstructive sleep apnea) DX :SHAW (obstructive sleep apnea) Social History Tobacco Use Types Packs/Day Years Used Date Smoking Tobacco: Never Alcohol Use Standard Drinks/Week Comments Not Currently 0 (1 standard drink = 0.6 oz pur e alcohol) Sex and Gender Information Value Date Recorded Sex Assigned at Not on file Legal Sex Male 10:21 AM EST Gender Identity Not on file Sexual Orientation Not on file Obstetrics History Plan of Treatment Health Maintenance Due Date Last Done Comments DTaP,Tdap,and Td Vaccines (1 - Tdap) 1957 Pneumococcal Vaccine: 50+ Ye ars (1 of 1 - PCV) 1998 Zoster Vaccines (1 of 2) 1998 RSV Immunization Patients 60 + Years Old (1 - 1-dose 75+ series) 2023 Abdominal Aortic Aneurysm (A AA) Screen 07/20/2023 Cholesterol Screening (Lipid Panel) 07/20/2023 Depression Screening 07/20/2023 Falls Risk Assessment 07/20/2023 Hepatitis C Screening 07/20/2023 Social Influencers of Health Screening 07/20/2023 Hypertension/CHF/CAD Annual BMP Blood Test 08/01/2023 COVID-19 Vaccine ( - 2023-2 5 season) 2024 Influenza Vaccine (#1) 2024 HIB Vaccines Aged Out No longer eligi ble based on patient's age to complete this topic HPV Vaccines Aged Out No longer eligi ble based on patient's age to complete this topic Hepatitis A Vaccines Aged Out No long er eligible based on patient's age to complete this topic Hepatitis B Vaccines Aged Out No long er eligible based on patient's age to complete this topic IPV Vaccines Aged Out No longer eligi ble based on patient's age to complete this topic MMR Vaccines Aged Out No longer eligi ble based on patient's age to complete this topic Meningococcal ACWY Vaccine Aged Out N o longer eligible based on patient's age to complete this topic Meningococcal B Vacine Aged Out No lo nger eligible based on patient's age to complete this topic RSV Immunization Patients Un jose 20 months Aged Out No longer eligible b ased on patient's age to complete this topic Varicella Vaccines Aged Out No longer eligible based on patient's age to complete this topic Care Teams Commercial Lines Account Assistant Relationship Specialty Start Date End Date Mary Machuca MD [address] [id number] PCP - General 07/17/22
--- OUTSIDE RECORDS SUMMARY | 2024-07-26 12:40 | XMS_ITS ---
Author Organization [facility] Address [address] [place] [id number] Care Team Providers Care Solar Thermal Technician Name Role Phone MAYE MALIK Primary Care Provider [phone] REASON FOR VISIT PODIATRY Encounters Encounter Location Date Provider Diagnosis [facility] [address] [address] 07/12/2024 MAYE MALIK Plan Of Treatment Next Appt Details Provider Name:MAYE MALIK , 10/28/2024 10:00:00 AM, [address] [place] [address] [address], [place], [address], Progress Notes * Keren DUONG RDOB:[birth year] (73 yo M)Acc No.[id number]:07/12/2024 Patient:?Keren DUONG :1950???Age:73 Y???Sex:Male Address:[facility] [place], [address] * true * Date:? Generated for Printi mariana/Tray/eTransmitting on:?07/26/2024 12:39 PM EST
[2024-07-26 13:07] LABS: Creatinine Urine 70.17 mg/dL; Microalbum/Creatinine Ratio Ur 189.5 ug/mg cr (<30)
== END 2024-07-26 11:22 | disposition home or self-care (01) ==
LOC: HO.LAB 11:21
PROVIDERS: PCP Hospitalist; Visit Provider Hospitalist
DX: E11.8 Type 2 diabetes mellitus with unspecified complications (principal); I25.10 Atherosclerotic heart disease of native coronary artery without angina pectoris
CPT/HCPCS: 36415; 80053; 80061; 82043; 82570; 83036

== ENCOUNTER → 2024-08-08 23:59 | Outpatient (BNV) | payer OTHER, SELFPAY ==
[2024-07-12 11:49] VITALS: BP 112/58; BP 118/58; BMI 26.1
--- NOTE | 2024-08-23 08:33 | MHC.OFFVIS ---
Intake Visit Reasons: Remote HF monitoring- [employer] Allergies No Known Allergies Allergy (Verified 10/27/23 09:42) [facility] Medical History (Updated 10/27/23 @ 13:17 by RADHA Alba) Pacemaker Cerebrovascular accident (CVA) determined by clinical assessment Screening for prostate cancer Screening for colon cancer PAD (peripheral artery disease) Type 2 diabetes mellitus with hypoglycemia Gout CAD (coronary artery disease) GERD (gastroesophageal reflux disease) Type 2 diabetes mellitus with hyperglycemia, with long-term current use of insulin Type 2 diabetes mellitus with diabetic polyneuropathy Hyperlipidemia LDL goal <70 Vitamin D deficiency Essential hypertension Surgical History Hx of removal of cyst History of open heart surgery Family History Mother CVD (cardiovascular disease) Father No problems noted. Other Pacemaker Social History Household Members: Family Housing: House Alcohol intake: never Patient Tobacco Use Status: Never used Tobacco e-Cigarette/Vaping Use: Never Used Second Hand Smoke Exposure: No service: No Current occupational status: retired Cognitive needs: No Hearing needs: No Vision needs: No Office Procedures Cardiac Device Check Cardiac Device Check Details: HF monitoring Stable thoracic impedance V paced 99.9%. [id number] Cardiac Device Check, multi lead implantable defibrillator Procedure code (CPT) selection complete Assessment & Plan Assessment & Plan (1) Cardiomyopathy: Code(s): I42.9 - Cardiomyopathy, unspecified Category: Medical Plan Coding Level of Care Code Procedure Only Diagnoses Cardiomyopathy I42.9 CPT Codes Cardiac Device Check - Cardiac Device 6: [id number] Cardiac Device Check, multi lead implantable defibrillator ([id number])
== END ==
PROVIDERS: PCP Hospitalist; Visit Provider Internal Medicine Cardiovascular Disease
DX: I42.9 Cardiomyopathy, unspecified (principal); Z95.810 Presence of automatic (implantable) cardiac defibrillator
CPT/HCPCS: 93297

== ENCOUNTER → 2024-09-08 23:59 | Outpatient (BNV) | payer MEDICARE, MEDICAID, SELFPAY ==
[2024-07-12 11:49] VITALS: BP 112/58; BP 118/58; BMI 26.1
--- NOTE | 2024-09-21 12:44 | A.OFFVIS_ITS ---
Intake Visit Reasons: Remote HF monitoring- Medtronic Allergies No Known Allergies Allergy (Verified 10/27/23 09:42) [facility] Medical History (Updated 10/27/23 @ 13:17 by RADHA Alba) Pacemaker Cerebrovascular accident (CVA) determined by clinical assessment Screening for prostate cancer Screening for colon cancer PAD (peripheral artery disease) Type 2 diabetes mellitus with hypoglycemia Gout CAD (coronary artery disease) GERD (gastroesophageal reflux disease) Type 2 diabetes mellitus with hyperglycemia, with long-term current use of insulin Type 2 diabetes mellitus with diabetic polyneuropathy Hyperlipidemia LDL goal <70 Vitamin D deficiency Essential hypertension Surgical History Hx of removal of cyst History of open heart surgery Family History Mother CVD (cardiovascular disease) Father No problems noted. Other Pacemaker Social History Household Members: Family Housing: House Alcohol intake: never Patient Tobacco Use Status: Never used Tobacco e-Cigarette/Vaping Use: Never Used Second Hand Smoke Exposure: No service: No Current occupational status: retired Cognitive needs: No Hearing needs: No Vision needs: No Office Procedures Cardiac Device Check Cardiac Device Check Details: Medtronic WINDOWS SERVER ADMINISTRATOR D. Heart failure monitoring. Stable thoracic impedance. V paced 99.9%. [id number] Cardiac Device Interrogation, cardio physiologic monitor Procedure code (CPT) selection complete Assessment & Plan Assessment & Plan (1) ICD (implantable cardioverter-defibrillator), biventricular, in situ: Comment: Medtronic Bi V ICD in place Code(s): Z95.810 - Presence of automatic (implantable) cardiac defibrillator Category: Medical Plan Coding Level of Care Code Procedure Only Diagnoses ICD (implantable cardioverter-defibrillator), biventricular, in situ Z95.810 CPT Codes Cardiac Device Check - Cardiac Device 15: [id number] Cardiac Device Interrogation, cardio physiologic monitor ([id number])
== END ==
PROVIDERS: PCP Hospitalist; Visit Provider Internal Medicine Cardiovascular Disease
DX: Z45.02 Encounter for adjustment and management of automatic implantable cardiac defibrillator (principal)
CPT/HCPCS: 93297

== ENCOUNTER 2024-09-15 15:10 | Outpatient (AMB) | payer MEDICARE, MEDICAID, SELFPAY ==
[2024-07-12 11:49] VITALS: BP 112/58; BP 118/58; BMI 26.1
[2024-09-15 15:13] VITALS: BP 140/60; PULSE 93; BMI 26.7
--- NOTE | 2024-09-15 15:13 | MHC.OFFVIS ---
Vital Signs 09/15/24 15:13 Height 5 ft 7 in Weight 170 lb 3.15 oz BMI 26.7 BP 140/60 H Blood Pressure Location Rt brachial Position Sitting Pulse 93 Pulse Source Monitor Intake Visit Reasons: 3 mth f/up echo/ labs Intake Note: 3 mth f/up-echo/labs Tax Analyst Required: No Accompanied by: Self / Same As Patient Allergies No Known Allergies Allergy (Verified 10/27/23 09:42) Medication List - Last Reconciled 09/15/24 by Shashank Martell MD acetaminophen (Tylenol Extra Strength) 1,000 mg PO QPM PRN acetaminophen ER (Mapap Arthritis Pain) 1,300 mg PO Q12H PRN apixaban (Eliquis) 5 mg PO BID 90 days atorvastatin 40 mg PO DAILY blood sugar diagnostic (Accu-Chek Nelly Plus test strips) 4 x/day carvedilol 12.5 mg PO BID 90 days cholecalciferol (vitamin D3) 25 mcg PO DAILY docusate sodium 100 mg PO BID dulaglutide (Trulicity) mg subcut QWEEK dulaglutide (Trulicity) mg subcut ferrous sulfate 300 mg (6.8182 mL) PO DAILY fluticasone propionate 50 mcg/actuation 1 spray intranasal DAILY furosemide (Lasix) 20 mg PO DAILY gabapentin 100 mg PO TID insulin degludec (Tresiba FlexTouch U-100 insulin) 24 units subcut DAILY insulin lispro (Humalog KwikPen (U-100) Insulin) 4 - 6 units (0.04 - 0.06 mL) subcut TID isosorbide mononitrate ER 30 mg PO DAILY levocetirizine 5 mg PO QPM metformin 1,000 mg PO BID nitroglycerin 0 mg sublingual omeprazole 20 mg PO BID sacubitril-valsartan 24-26 mg (Entresto) 1 tab PO BID 90 days tamsulosin 0.4 mg PO DAILY HPI Comments Details: Pleasant 74-year-old gentleman is here for 1st office visit. He has background history of coronary artery bypass surgery which was performed in 2005. It appears he had BATEMAN to LAD, saphenous vein graft to OM1 and radial graft to OM3. There was no graft placed to the right coronary artery. It appears he got admitted to hospital with urinary retention and eventually developed chest discomfort and echocardiography nuclear perfusion imaging was performed. ECHO showed EF of 15-20% with global hypokinesis and nuclear stress test was more consistent with fixed anterior perfusion defect consistent with scar. He underwent cardiac catheterization at that time which showed that his vein graft to om 1 and om 2 are both patent. He had a chronic total occlusion of the right coronary artery. He had severe proximal and distal LAD stenosis of 80-90%. Proximal 2nd diagonal has 90% stenosis. Left main 35% stenosis. Om 1 and OM 2 both are 99% and 95% stenosis. It appears he was medically treated and sent home with guideline directed medical therapy. His EKG also showed first-degree AV block and left bundle-branch block. He has been doing cardiac rehabilitation and it appears he has been progressing there. Off and on he has noticed some right-sided chest pain which gets for severe presses his chest wall. I think this is musculoskeletal pain. His additional anginal discomfort was a center pressure-like feeling. He returns and his medications are different. It appears he had a prescription given to him through his primary care office of lisinopril 2.5 mg. He is also taking Entresto and there is a serious reaction between the 2 medications. I have advised him to stop the lisinopril and we have reached out to the physician's office to make sure that lisinopril will script is canceled. His blood pressure is a little low but he is not dizzy or lightheaded. He seems to be progressing at a cardiac rehab which is a good sign. He was previous also on apixaban for paroxysmal atrial fibrillation but he returns and is off apixaban. He is not sure why it was stopped. His recent echocardiography has shown moderate LV dysfunction with EF of 30 35%. He has avoided left bundle-branch block. 01/22/23: He returns for follow-up. He has been exercising at cardiac rehab and doing well. Repeat echocardiography which was a limited echo showed EF of 30 35%. Tolerating medications and taking them regularly. 04/30/23: Returns for follow-up. He has been doing fine with cardiac rehabilitation. Occasionally gets chest discomfort. Blood pressure is normal. Previously was referred for EDUCATION PROFESSIONAL D. It appears there has been some communication issues between electrophysiology and Mr. Kohli. I will look into this. Overall he has been stable. 08/11/23: He returns for follow-up. He is status post Bi V AICD placement. Clinically has been stable. No chest discomfort shortness of breath. He had urinary tract infection which delayed his procedure and at that time we stopped the Jardiance because of risk of UTI associated with Jardiance. He has been doing well with current medications. 11/26/23: He is here for f/u. He has LE edema and mild dyspnea. He has also noted abdominal distension. He also has been getting some chest pressure lasting for 2 mins with activities. He is off Jardiance because he had UTIs in the past. 12/31/23: He was started on low-dose Lasix 20 mg daily on last visit. He returns today and is denying any new symptoms. Lower extremity edema has improved completely but he also has stopped using gabapentin. He is asking whether gabapentin should be restarted and whether he can decrease the dose. It appears he was seeing a neurologist after meningitis and he was started on gabapentin. He is denying any neuropathic symptoms currently. He has some clear prostatism and was on tamsulosin before. 01/26/2024: He is here for follow-up. He recently had ER visit because of severe constipation and urinary retention. He was given treatment for constipation and had a Lemus catheter placed. He continues to have a Lemus catheter in place and will be seeing urologist soon. He said he was doing fine with constipation but recently just developed severe constipation and then urinary retention. It is possible that the constipation led to urinary retention but at his age obviously underlying bladder outlet obstruction and other issues can be the cause 2. He said he started taking Jardiance before all this started and he has stopped using it. No urinary tract infection has been found but he previously had urinary issues which led to ER visits and after discussion we have decided not to try Jardiance anymore. He also has some burning chest discomfort in the upper part and throat. I think this is probably related to acid reflux. I have advised him to stop the baby aspirin. Otherwise no chest pain or shortness of breath. His peripheral edema has improved. Blood pressure is well controlled. No anginal symptoms. 09/15/2024: He returns for follow-up. He has been doing well. No chest discomfort. Occasionally gets short of breath. No orthopnea or PND. He is saying the lower extremity edema comes and goes. Some dietary indiscretions are in there. Previously had iron-deficiency and was started on iron supplements but apparently insurance stopped covering it. We will recheck the iron levels. [facility] Medical History (Updated 10/27/23 @ 13:17 by RADHA Alba) Pacemaker Cerebrovascular accident (CVA) determined by clinical assessment Screening for prostate cancer Screening for colon cancer PAD (peripheral artery disease) Type 2 diabetes mellitus with hypoglycemia Gout CAD (coronary artery disease) GERD (gastroesophageal reflux disease) Type 2 diabetes mellitus with hyperglycemia, with long-term current use of insulin Type 2 diabetes mellitus with diabetic polyneuropathy Hyperlipidemia LDL goal <70 Vitamin D deficiency Essential hypertension Surgical History Hx of removal of cyst History of open heart surgery Family History Mother CVD (cardiovascular disease) Father No problems noted. Other Pacemaker Social History Household Members: Family Housing: House Alcohol intake: never Patient Tobacco Use Status: Never used Tobacco e-Cigarette/Vaping Use: Never Used Second Hand Smoke Exposure: No service: No Current occupational status: retired Cognitive needs: No Hearing needs: No Vision needs: No Review of Systems Const Denies chills, Denies fatigue, Denies fever(s), Denies frequent falls, Denies weakness, Denies weight gain and Denies weight loss ENT Denies dizziness Card Denies chest pain, Denies leg edema, Denies lightheadedness, Denies palpitations, Denies dyspnea and Denies dyspnea on exertion Resp Denies cough, Denies dyspnea and Denies dyspnea on exertion GI Denies hematochezia Musc Denies abnormal gait, Denies muscle weakness, Denies numbness, Denies radiating pain into limb and Denies tingling Neuro Denies abnormal gait, Denies dizziness, Denies frequent falls, Denies numbness, Denies tingling and Denies weakness Endo Denies fatigue and Denies palpitations Physical Exam Vital Signs: Last Vital Signs Pulse 93 09/15/24 15:13 BP 140/60 H 09/15/24 15:13 BMI result Body Mass Index 26.7 GENERAL APPEARANCE: in no acute distress, pleasant. NECK: no carotid bruit, no jugular venous distention. SKIN: no suspicious lesions, warm and dry. HEART: Systolic murmur aortic area with preserved 2nd heart sound, regular rate and rhythm. LUNGS: clear to auscultation bilaterally. ABDOMEN: soft, nontender. EXTREMITIES: no edema. PERIPHERAL PULSES: equal. NEUROLOGIC: No gross deficits, AAO X 3 Office Procedures EKG Details: Atrial sensed V paced rhythm with QRS duration of 160 milliseconds, QTC 484 milliseconds [id number], Complete Assessment & Plan Assessment & Plan (1) ICD (implantable cardioverter-defibrillator), biventricular, in situ: Comment: Medtronic Bi V ICD in place Code(s): Z95.810 - Presence of automatic (implantable) cardiac defibrillator Category: Medical (2) CAD (coronary artery disease): Comment: s/p CABG BATEMAN to LAD, SVG to OM1 and radial graft to OM 3. No grafts placed to the RCA Code(s): I25.10 - Atherosclerotic heart disease of [place] coronary artery without angina pectoris Category: Medical (3) Stable angina: Code(s): I20.8 - Other forms of angina pectoris Category: Medical (4) Cardiomyopathy: Code(s): I42.9 - Cardiomyopathy, unspecified Category: Medical Plan Pleasant 74 year gentleman with background history of coronary artery bypass surgery and cardiomyopathy with wide left bundle-branch block. He underwent EDUCATION PROFESSIONAL D his ejection fraction is 30-35% as of last echocardiogram. Clinically he is euvolemic currently. He has some limitations due to previous meningitis which has affected his mobility and walks with a cane. Occasionally gets lower extremity edema but overall the edema fluctuates with his diet. I have advised him that he needs to be careful with salt intake. He understands that. Continue same dose of diuretics currently. We will repeat echocardiography to reassess ejection fraction. Due to iron-deficiency anemia he was taken off the aspirin and is on Eliquis only currently for atrial fibrillation in the past. Thank you for allowing me to participate in the care of your patient. Please feel free to contact me if you have any questions. Orders: Orders CA echo transthoracic complete Today I42.9 - Cardiomyopathy, unspecified IRON PROFILE Today I42.9 - Cardiomyopathy, unspecified Coding Level of Care Code Est Pt Level 4 (83430) Complex EM visit Add On G2211 Diagnoses ICD (implantable cardioverter-defibrillator), biventricular, in situ Z95.810 CAD (coronary artery disease) I25.10 Stable angina I20.8 Cardiomyopathy I42.9 CPT Codes EKG - CPT: 09524-[id number], Complete ([id number])
--- OUTSIDE RECORDS SUMMARY | 2024-09-15 17:36 | XMS_ITS ---
Author Name Gui GONSALES Ana Address [address] [place] [address] Phone [phone] Organization [facility] Care Team Providers Care Cytogenetics Laboratory Manager Name Role Phone Clitnon Messerna Unavailable [phone] MAYE WRIGHT Unavailable [phone] LOU CRUZ Unavailable [phone] JOSEMANUEL LINDA Unavailable [phone] Maye Machuca Unavailable [phone] Reason for Referral Not Available Allergies, adverse [...] Data Available BD UF SHORT PEN NEEDLE [id number] DIRECTED SUBQ ONCE DAILY 30 DAYS 2022-04-08 [...] Service Diagnosis/Co mplaint Medication List Documented (1159F) [facility] [place]20[place] Medication List Documented (1159F) [facility] [place]2022 Medication List Documented (1159F) [facility] [place]/09/2022 Medication List Documented (1159F) [facility] [place] 04/09/2022 Medication List Documented (1159F) [facility] [place] 04/09/2022 Medication List Documented (1159F) [facility] [place] 04/09/2022 Medication List Documented (1159F) [facility] [place] 04/09/2022 Medication List Documented (1159F) [facility] [place] 04/09/2022 Medication List Documented (1159F) [facility] [place] 04/09/2022 Type 2 diabetes w diabetic peripheral angiopath w/o gangreneType 2 diabetes mellitus with other specified complicationHyperlipidemia, unspecifiedEssential (primary) hypertensionGastro-esophageal reflux disease without esophagitisConstipation, unspecifiedLong term (current) use of insulin RN, CN or CP time with patient by phone; use with 1111F, BP, A1c or other CPTII codes [facility] [place] 09/02/2022 Encounter for other specifie d aftercare RN, CN or CP time with patient by phone; use with 1111F, BP, A1c or other CPTII codes [facility] [place] 09/02/2022 Vital Signs Date of Collection Vitals 2022-04-09 06:12:57 Height - 172.72 cmWe ight - 70.31 kgBody Mass Index (BMI) - 23.57 kg/m2BP Diastolic - 80.0 mm[Hg]BP Systolic - 140.0 mm[Hg] Social History Social History Social History Observation Description Effec tive Time Current Smoking Status Never smoker 2 Sex Male History of Procedures Procedures Service [...] 95 for video, modifier 93 for phone [id number] 2022-04-09 No Data Available No Data Available RN, CN or CP time with patient by phone; use with 1111F, BP, A1c or other CPTII codes 25923 2022-09-02 No Data Available No Data Avai [...] Follow: Cardiology yearly per sonDr. Linda -PCP [id number].Take all medications as prescribedFollow up with providers [...]
--- OUTSIDE RECORDS SUMMARY | 2024-09-15 17:36 | XMS_ITS | Clinical Summary ---
Author Organization [employer] [facility] Address [address] [place] [address] Care Team Providers Care Photographic Engineer Name Role Phone Mary Machuca MD Primary Care Provider [phone] Surgical History Surgery Date Site/Laterality Comments CORONARY ARTERY BYPASS GRAFT PROCEDURE: HISTORICAL CABG; COMMENT: x3 Medical History Medical History Date Comments Type 2 diabetes mellitus wit h unspecified complications DX:Type 2 diabetes mellitus with unspecified complications [...] Comments DTaP,Tdap,and Td Vaccines (1 - Tdap) 1967 Pneumococcal Vaccine: 50+ Ye ars (1 of 1 - PCV) 1998 Zoster Vaccines (1 of 2) 1998 RSV Immunization Adult Patie nts (1 - 1-dose 75+ series) 2023 Cholesterol Screening (Lipid Panel) 07/20/2023 Depression Screening 07/20/2023 Falls Risk Assessment 07/20/2023 Hepatitis C Screening 07/20/2023 Social Influencers of Health Screening 07/20/2023 Hypertension/CHF/CAD Annual BMP Blood Test 08/01/2023 COVID-19 Vaccine (1 - 2024-2 5 season) 2024 Influenza Vaccine (#1) 2024 [...] age to complete this topic Care Teams Photographic Engineer Relationship Specialty Start Date End Date Mary Machuca MD [address] [address] PCP - General 07/17/22
--- OUTSIDE RECORDS SUMMARY | 2024-09-15 17:36 | XMS_ITS ---
Author Organization [facility] Address [address] [place] [address] Care Team Providers Care Trackmobile Operator Name Role Phone MAYE MALIK Primary Care Provider [phone] REASON FOR VISIT Lantus refill Medications Medication SIG (Take, Route, Fr equency, Duration) Notes Start Date End Date Status Lantus SoloStar 100 UNIT/ML INJECT 25 UNITS SUBCUTANEOUSLY ONCE A DAY; DX: E11.8 for 90 days Active Encounters Encounter Location Date Provider Diagnosis [facility] [address] [address] 09/07/2024 MAYE MALIK Plan Of Treatment Medication Medication Name Sig Start Date Stop Date Notes Lantus SoloStar 100 UNIT/ML INJECT 25 UN ITS SUBCUTANEOUSLY ONCE A DAY; DX: E11.8 for 90 days Next Appt Details Provider Name:MAYE MALIK , 10/28/2024 10:00:00 AM, [address] [place] [address], [place], [address], Progress Notes * Keren DUONG RDOB:[birth year] (74 yo M)Acc No.[id number]:09/07/2024 Patient:?Keren DUONG :1950???Age:74 Y???Sex:Male Address:[address] [place], [place] [address], [address] * Refills? Refill Lantus SoloStar Solution Pen-injector, 100 UNIT/ML, 15, INJECT 25 UNITS SUBCUTANEOUSLY ONCE A DAY; DX: E11.8, 90 days, Refills=3 * true * Date:? Generated for Anisha peña/Tray/Sri on:?09/15/2024 05:35 PM EDT
--- OUTSIDE RECORDS SUMMARY | 2024-09-15 17:36 | XMS_ITS ---
Author Organization [facility] Address [address] [place] [address] Care Team Providers Care Youth Accommodation Support Worker Name Role Phone MAYE MALIK Primary Care Provider REASON FOR VISIT Ozempic clarification Medications Medication SIG (Take, Route, Frequency, Duration) Notes Start Date End Date Status Ozempic (1 MG/DOSE) 4 MG/3ML 1 mg Subcutaneous weekly for 30 days Active Encounters Encounter Location Date Provider Diagnosis [facility] [address] [address] 07/28/2024 MAYE MALIK Plan Of Treatment Medication Medication Name Sig Start Date Stop Date Notes Ozempic (1 MG/DOSE) 4 MG/3ML 1 mg Subcut aneous weekly for 30 days Next Appt Details Provider Name:MAYE MALIK , 10/28/2024 10:00:00 AM, [address] [place] [address], [place], [address], Progress Notes * Keren DUONG RDOB:[birth year] (74 yo M)Acc No.[id number]:07/28/2024 Patient:?Keren DUONG :1950???Age:74 Y???Sex:Male Address:[facility] [place], [address] * Refills? Refill Ozempic (1 MG/DOSE) Solution Pen-injector, 4 MG/3ML, 3 ml, 1 mg Subcutaneous weekly, 30 days, Refills=5 * true * Date:? Generated for Anisha peña/Tray/Dcitting on:?09/15/2024 05:35 PM EDT
--- OUTSIDE RECORDS SUMMARY | 2024-09-15 17:36 | XMS_ITS ---
Author Organization [facility] Address [address] [place] [address] Care Team Providers Care Bar Pointer Name Role Phone MAYE MALIK Primary Care Provider REASON FOR VISIT Strips refill Medications Medication SIG (Take, Route, Fr equency, Duration) Notes Start Date End Date Status Accu-Chek Nelly Plus - Check blood sugar s DX: E11.8 In Vitro Three times a day for 30 days 07/23/2023 Active Encounters Encounter Location Date Provider Diagnosis [facility] [address] [address] 09/07/2024 MAYE MALIK Plan Of Treatment Medication Medication Name Sig Start Date Stop Date Notes FreeStyle Gallito 3 Sensor - Change every 14 days; DX: E11.8 one touch verio test strips - test blood sugars 3 times daily dx: E11.9 08/28/2023 Accu-Chek Nelly Plus - Check blood sugar s DX: E11.8 In Vitro Three times a day for 30 days 07/23/2023 FreeStyle Gallito 2 Sensor - Appy to arm e very 14 days, dx: E11.8 Next Appt Details Provider Name:MAYE MALIK , 10/28/2024 10:00:00 AM, [address] [place] [address], [place], [address], Progress Notes * Keren DUONG RDOB:[birth year] (74 yo M)Acc No.[id number]:09/07/2024 Patient:?AD, Mohammad R :1950???Age:74 Y???Sex:Male Address:[address] [place] [address], [place], [address] * Refills? Stop FreeStyle Gallito 2 Sensor Miscellaneous, -, Appy to arm every 14 days, dx: E11.8 Stop FreeStyle Gallito 3 Sensor Miscellaneous, -, Change every 14 days; DX: E11.8 Stop one touch verio test strips Miscellaneous, -, test blood sugars 3 times daily dx: E11.9 Refill Accu-Chek Nelly Plus Strip, -, In Vitro, 300, Check blood sugars DX: E11.8, Three times a day, 30 days, Refills=11 * true * Date:? Generated for Anisha peña/Tray/Zenaidasmitting on:?09/15/2024 05:36 PM EDT
== END 2024-09-15 15:42 | disposition home or self-care (01) ==
LOC: HO.HCS 15:10
PROVIDERS: PCP Hospitalist; Visit Provider Internal Medicine Cardiovascular Disease
DX: I25.118 Atherosclerotic heart disease of native coronary artery with other forms of angina pectoris (principal); I42.9 Cardiomyopathy, unspecified; Z95.810 Presence of automatic (implantable) cardiac defibrillator
CPT/HCPCS: 93010; 99214; G2211

== ENCOUNTER → 2024-09-15 15:10 | Outpatient (BNVA) | payer MEDICARE, MEDICAID, SELFPAY ==
[2024-07-12 11:49] VITALS: BP 112/58; BP 118/58; BMI 26.1
== END ==
PROVIDERS: PCP Hospitalist; Visit Provider Internal Medicine Cardiovascular Disease
DX: I25.118 Atherosclerotic heart disease of native coronary artery with other forms of angina pectoris (principal); I42.9 Cardiomyopathy, unspecified; Z95.810 Presence of automatic (implantable) cardiac defibrillator; R94.31 Abnormal electrocardiogram [ECG] [EKG]; I45.4 Nonspecific intraventricular block
CPT/HCPCS: 93005; 99212

== ENCOUNTER → 2024-10-09 23:59 | Outpatient (BNV) | payer MEDICAID, MEDICARE, SELFPAY ==
[2024-07-12 11:49] VITALS: BP 112/58; BP 118/58; BMI 26.1
--- NOTE | 2024-10-31 21:07 | MHC.OFFVIS ---
Intake Visit Reasons: Remote HF monitoring- [employer] Allergies No Known Allergies Allergy (Verified 10/27/23 09:42) [facility] Medical History (Updated 10/27/23 @ 13:17 by RADHA Alba) Pacemaker Cerebrovascular accident (CVA) determined by clinical assessment Screening for prostate cancer Screening for colon cancer PAD (peripheral artery disease) Type 2 diabetes mellitus with hypoglycemia Gout CAD (coronary artery disease) GERD (gastroesophageal reflux disease) Type 2 diabetes mellitus with hyperglycemia, with long-term current use of insulin Type 2 diabetes mellitus with diabetic polyneuropathy Hyperlipidemia LDL goal <70 Vitamin D deficiency Essential hypertension Surgical History Hx of removal of cyst History of open heart surgery Family History Mother CVD (cardiovascular disease) Father No problems noted. Other Pacemaker Social History Household Members: Family Housing: House Alcohol intake: never Patient Tobacco Use Status: Never used Tobacco e-Cigarette/Vaping Use: Never Used Second Hand Smoke Exposure: No service: No Current occupational status: retired Cognitive needs: No Hearing needs: No Vision needs: No Office Procedures Cardiac Device Check Cardiac Device Check Details: HF monitoring Stable thoracic impedance. [id number] Cardiac Device Interrogation, cardio physiologic monitor Procedure code (CPT) selection complete Assessment & Plan Assessment & Plan (1) ICD (implantable cardioverter-defibrillator), biventricular, in situ: Comment: Medtronic Bi V ICD in place Code(s): Z95.810 - Presence of automatic (implantable) cardiac defibrillator Category: Medical Plan Coding Level of Care Code Procedure Only Diagnoses ICD (implantable cardioverter-defibrillator), biventricular, in situ Z95.810 CPT Codes Cardiac Device Check - Cardiac Device 15: [id number] Cardiac Device Interrogation, cardio physiologic monitor ([id number])
== END ==
PROVIDERS: PCP Hospitalist; Visit Provider Internal Medicine Cardiovascular Disease
DX: Z45.02 Encounter for adjustment and management of automatic implantable cardiac defibrillator (principal)
CPT/HCPCS: 93297

== ENCOUNTER → 2024-10-09 23:59 | Outpatient (BNV) | payer MEDICARE, MEDICAID, SELFPAY ==
[2024-07-12 11:49] VITALS: BP 112/58; BP 118/58; BMI 26.1
--- NOTE | 2024-10-20 09:02 | MHC.OFFVIS ---
Intake Visit Reasons: Remote device check- Medtronic Allergies No Known Allergies Allergy (Verified 10/27/23 09:42) [facility] Medical History (Updated 10/27/23 @ 13:17 by RADHA Alba) Pacemaker Cerebrovascular accident (CVA) determined by clinical assessment Screening for prostate cancer Screening for colon cancer PAD (peripheral artery disease) Type 2 diabetes mellitus with hypoglycemia Gout CAD (coronary artery disease) GERD (gastroesophageal reflux disease) Type 2 diabetes mellitus with hyperglycemia, with long-term current use of insulin Type 2 diabetes mellitus with diabetic polyneuropathy Hyperlipidemia LDL goal <70 Vitamin D deficiency Essential hypertension Surgical History Hx of removal of cyst History of open heart surgery Family History Mother CVD (cardiovascular disease) Father No problems noted. 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 SETTER 99.9% No new alerts [id number] Cardiac Device Interrogation, pacemaker or defibrillator Procedure code (CPT) selection complete Assessment & Plan Assessment & Plan (1) ICD (implantable cardioverter-defibrillator), biventricular, in situ: Comment: Medtronic Bi V ICD in place Code(s): Z95.810 - Presence of automatic (implantable) cardiac defibrillator Category: Medical Plan Coding Level of Care Code Procedure Only Diagnoses ICD (implantable cardioverter-defibrillator), biventricular, in situ Z95.810 CPT Codes Cardiac Device Check - Cardiac Device 14: 57935-Ckaqje Cardiac Device Interrogation, pacemaker or defibrillator ([id number])
== END ==
PROVIDERS: PCP Hospitalist; Visit Provider Internal Medicine Cardiovascular Disease
DX: Z45.02 Encounter for adjustment and management of automatic implantable cardiac defibrillator (principal)
CPT/HCPCS: 93295

== ENCOUNTER → 2024-11-09 23:59 | Outpatient (BNV) | payer MEDICARE, MEDICAID, SELFPAY ==
[2024-07-12 11:49] VITALS: BP 112/58; BP 118/58; BMI 26.1
--- NOTE | 2024-11-12 12:12 | MHC.OFFVIS ---
Intake Visit Reasons: Remote HF monitoring- [employer] Allergies No Known Allergies Allergy (Verified 10/27/23 09:42) [facility] Medical History (Updated 10/27/23 @ 13:17 by RADHA Alba) Pacemaker Cerebrovascular accident (CVA) determined by clinical assessment Screening for prostate cancer Screening for colon cancer PAD (peripheral artery disease) Type 2 diabetes mellitus with hypoglycemia Gout CAD (coronary artery disease) GERD (gastroesophageal reflux disease) Type 2 diabetes mellitus with hyperglycemia, with long-term current use of insulin Type 2 diabetes mellitus with diabetic polyneuropathy Hyperlipidemia LDL goal <70 Vitamin D deficiency Essential hypertension Surgical History Hx of removal of cyst History of open heart surgery Family History Mother CVD (cardiovascular disease) Father No problems noted. Other Pacemaker Social History Household Members: Family Housing: House Alcohol intake: never Patient Tobacco Use Status: Never used Tobacco e-Cigarette/Vaping Use: Never Used Second Hand Smoke Exposure: No service: No Current occupational status: retired Cognitive needs: No Hearing needs: No Vision needs: No Office Procedures Cardiac Device Check Cardiac Device Check Details: HF monitoring [employer] 99% Stable thoracic impedance. [id number] Cardiac Device Interrogation, cardio physiologic monitor Procedure code (CPT) selection complete Assessment & Plan Assessment & Plan (1) ICD (implantable cardioverter-defibrillator), biventricular, in situ: Comment: [employer]tronic Bi V ICD in place Code(s): Z95.810 - Presence of automatic (implantable) cardiac defibrillator Category: Medical Plan Orders: Orders AMB Cardiac Device Follow-up 11/09/24 Z95.810 - Presence of automatic (implantable) cardiac defibrillator Coding Level of Care Code Procedure Only Diagnoses ICD (implantable cardioverter-defibrillator), biventricular, in situ Z95.810 CPT Codes Cardiac Device Check - Cardiac Device 15: [id number] Cardiac Device Interrogation, cardio physiologic monitor ([id number])
== END ==
PROVIDERS: PCP Hospitalist; Visit Provider Internal Medicine Cardiovascular Disease
DX: Z45.02 Encounter for adjustment and management of automatic implantable cardiac defibrillator (principal)
CPT/HCPCS: 93297

== ENCOUNTER → 2024-12-10 23:59 | Outpatient (BNV) | payer MEDICARE, MEDICAID, SELFPAY ==
[2024-07-12 11:49] VITALS: BP 112/58; BP 118/58; BMI 26.1
--- NOTE | 2025-01-11 16:36 | MHC.OFFVIS ---
Intake Visit Reasons: Remote HF monitoring- [employer] Allergies No Known Allergies Allergy (Verified 10/27/23 09:42) [facility] Medical History (Updated 10/27/23 @ 13:17 by RADHA Alba) Pacemaker Cerebrovascular accident (CVA) determined by clinical assessment Screening for prostate cancer Screening for colon cancer PAD (peripheral artery disease) Type 2 diabetes mellitus with hypoglycemia Gout CAD (coronary artery disease) GERD (gastroesophageal reflux disease) Type 2 diabetes mellitus with hyperglycemia, with long-term current use of insulin Type 2 diabetes mellitus with diabetic polyneuropathy Hyperlipidemia LDL goal <70 Vitamin D deficiency Essential hypertension Surgical History Hx of removal of cyst History of open heart surgery Family History Mother CVD (cardiovascular disease) Father No problems noted. Other Pacemaker Social History Household Members: Family Housing: House Alcohol intake: never Patient Tobacco Use Status: Never used Tobacco e-Cigarette/Vaping Use: Never Used Second Hand Smoke Exposure: No service: No Current occupational status: retired Cognitive needs: No Hearing needs: No Vision needs: No Office Procedures Cardiac Device Check Cardiac Device Check Details: HF monitoring Ongoing volume overload in November. [id number] Cardiac Device Interrogation, cardio physiologic monitor Procedure code (CPT) selection complete Assessment & Plan Assessment & Plan (1) Cardiomyopathy: Code(s): I42.9 - Cardiomyopathy, unspecified Category: Medical Plan Coding Level of Care Code Procedure Only Diagnoses Cardiomyopathy I42.9 CPT Codes Cardiac Device Check - Cardiac Device 15: [id number] Cardiac Device Interrogation, cardio physiologic monitor ([id number])
== END ==
PROVIDERS: PCP Hospitalist; Visit Provider Internal Medicine Cardiovascular Disease
DX: I42.9 Cardiomyopathy, unspecified (principal); Z95.810 Presence of automatic (implantable) cardiac defibrillator
CPT/HCPCS: 93297

== ENCOUNTER → 2025-01-10 23:59 | Outpatient (BNV) | payer MEDICARE, MEDICAID, SELFPAY ==
[2024-07-12 11:49] VITALS: BP 112/58; BP 118/58; BMI 26.1
--- NOTE | 2025-01-25 12:05 | A.OFFVIS_ITS ---
Intake Visit Reasons: Remote device check- [employer] Allergies No Known Allergies Allergy (Verified 10/27/23 09:42) [facility] Medical History (Updated 10/27/23 @ 13:17 by RADHA Alba) Pacemaker Cerebrovascular accident (CVA) determined by clinical assessment Screening for prostate cancer Screening for colon cancer PAD (peripheral artery disease) Type 2 diabetes mellitus with hypoglycemia Gout CAD (coronary artery disease) GERD (gastroesophageal reflux disease) Type 2 diabetes mellitus with hyperglycemia, with long-term current use of insulin Type 2 diabetes mellitus with diabetic polyneuropathy Hyperlipidemia LDL goal <70 Vitamin D deficiency Essential hypertension Surgical History Hx of removal of cyst History of open heart surgery Family History Mother CVD (cardiovascular disease) Father No problems noted. Other Pacemaker Social History Household Members: Family Housing: House Alcohol intake: never Patient Tobacco Use Status: Never used Tobacco e-Cigarette/Vaping Use: Never Used Second Hand Smoke Exposure: No service: No Current occupational status: retired Cognitive needs: No Hearing needs: No Vision needs: No Office Procedures Cardiac Device Check Cardiac Device Check Details: Bi V AICD Good battery life. Bi V paced 99%. No new alerts. [id number] Cardiac Device Interrogation, pacemaker or defibrillator Procedure code (CPT) selection complete Assessment & Plan Assessment & Plan (1) Cardiomyopathy: Code(s): I42.9 - Cardiomyopathy, unspecified Category: Medical Plan Coding Level of Care Code Procedure Only Diagnoses Cardiomyopathy I42.9 CPT Codes Cardiac Device Check - Cardiac Device 14: [id number] Cardiac Device Interrogation, pacemaker or defibrillator ([id number])
== END ==
PROVIDERS: PCP Hospitalist; Visit Provider Internal Medicine Cardiovascular Disease
DX: I42.9 Cardiomyopathy, unspecified (principal); Z95.810 Presence of automatic (implantable) cardiac defibrillator
CPT/HCPCS: 93295

== ENCOUNTER → 2025-01-10 23:59 | Outpatient (BNV) | payer MEDICARE, MEDICAID, SELFPAY ==
[2024-07-12 11:49] VITALS: BP 112/58; BP 118/58; BMI 26.1
--- NOTE | 2025-01-25 12:03 | A.OFFVIS_ITS ---
Intake Visit Reasons: Remote HF monitoring- [employer] Allergies No Known Allergies Allergy (Verified 10/27/23 09:42) [facility] Medical History (Updated 10/27/23 @ 13:17 by RADHA Alba) Pacemaker Cerebrovascular accident (CVA) determined by clinical assessment Screening for prostate cancer Screening for colon cancer PAD (peripheral artery disease) Type 2 diabetes mellitus with hypoglycemia Gout CAD (coronary artery disease) GERD (gastroesophageal reflux disease) Type 2 diabetes mellitus with hyperglycemia, with long-term current use of insulin Type 2 diabetes mellitus with diabetic polyneuropathy Hyperlipidemia LDL goal <70 Vitamin D deficiency Essential hypertension Surgical History Hx of removal of cyst History of open heart surgery Family History Mother CVD (cardiovascular disease) Father No problems noted. Other Pacemaker Social History Household Members: Family Housing: House Alcohol intake: never Patient Tobacco Use Status: Never used Tobacco e-Cigarette/Vaping Use: Never Used Second Hand Smoke Exposure: No service: No Current occupational status: retired Cognitive needs: No Hearing needs: No Vision needs: No Office Procedures Cardiac Device Check Cardiac Device Check Details: Heart failure monitoring. Stable thoracic impedance. [id number] Cardiac Device Interrogation, cardio physiologic monitor Procedure code (CPT) selection complete Assessment & Plan Assessment & Plan (1) Cardiomyopathy: Code(s): I42.9 - Cardiomyopathy, unspecified Category: Medical Plan Coding Level of Care Code Procedure Only Diagnoses Cardiomyopathy I42.9 CPT Codes Cardiac Device Check - Cardiac Device 15: [id number] Cardiac Device Interrogation, cardio physiologic monitor ([id number])
== END ==
PROVIDERS: PCP Hospitalist; Visit Provider Internal Medicine Cardiovascular Disease
DX: I42.9 Cardiomyopathy, unspecified (principal); Z95.810 Presence of automatic (implantable) cardiac defibrillator
CPT/HCPCS: 93297

== ENCOUNTER 2025-01-28 08:43 | Outpatient (AMB) | payer MEDICARE, MEDICAID, SELFPAY ==
[2024-07-12 11:49] VITALS: BP 112/58; BP 118/58; BMI 26.1
--- OUTSIDE RECORDS SUMMARY | 2025-01-27 10:00 | XMS_ITS ---
[facility] Organization [facility] Address [address] [place] [address] Care Team Providers Care Loop Puller Name Role Phone KING VILLAVICENCIO Primary Care Provider Allergies No Known Allergies REASON FOR VISIT 3 month f/u Medications Medication SIG (Take, Route, Frequency, Duration) Notes Start Date End Date Status Lubiprostone 24 MCG 1 capsule with food and water Orally Twice a day; Duration: 30 day(s) 09/20/2021 Not-Taking Pen Lawrence 31G X 8 MM as directed subq once daily; Duration: 30 days 04/08/2022 Not-Taking Viagra 25 MG 1 tablet as needed Orally Once a day; Duration: 30 day(s) 01/02/2022 Not-Taking Lantus SoloStar 100 UNIT/ML INJECT 30 UNITS SUBCUTANEOUSLY ONCE A DAY; DX: E11.8; Duration: 90 days Active Ozempic (0.25 or 0.5 MG/DOSE) 2 MG/1.5ML 0.25 mg for 1 month then increase to 0.5 mg Subcutaneous once a week; Duration: 30 days Not-Taki ng Tylenol 8 Hour 650 MG 2 tablets as neede d Orally every 8 hrs Not-Taking Fish Oil 1000 MG 1 capsule Orally Onc e a day Not-Taking Augmentin 500-125 MG 1 tablet Orally mara ry 12 hrs; Duration: 7 day(s) 12/06/2021 Not-Taking Augmentin 875-125 MG 1 tablet Orally mara ry 12 hrs; Duration: 7 day(s) 04/03/2022 Not-Taking Cilostazol 100 MG 1 tablet 30 minutes before or 2 hours after breakfast and dinner Orally Twice a day; Duration: 30 day(s) Not-Taking Nitroglycerin 0.4 MG Take 1 pill if no improvement take another pill after 5 minutes and if no improvement take another pill after 5 minutes and call MD Sublingual Once a day; Duration: 30 day(s) Not-Taking Mounjaro 12.5 MG/0.5ML inject 10 mg Subcutaneous once a week; Duration: 30 days Not-Taki ng Levocetirizine Dihydrochloride 5 MG 1 tablet in the evening Orally Once a day; Duration: 90 days Not-Taking TobraDex 0.3-0.1 % 1 drop into affected eye Ophthalmic every 6 hrs; Duration: 7 days Not-Taking Amoxicillin 500 MG 1 capsule Orally mara ry 8 hrs; Duration: 5 day(s) Not-Taking Gabapentin 300 MG TAKE 1 CAPSULE BY [facility] THREE TIMES A DAY; Duration: 90 days Active Atorvastatin Calcium 40 MG TAKE 1 TABLET BY MOUTH EVERY DAY FOR 90 DAYS; Duration: 90 Active Accu-Chek Nelly Plus - Check blood sugar s DX: E11.8 In Vitro Three times a day; Duration: 30 days 07/23/2023 Active Mounjaro 15 MG/0.5ML as directed Subcutaneous weekly; Duration: 30 days Not-Taking metFORMIN HCl 1000 MG 1 tablet with a me al Orally 2 times a day; Duration: 30 days Active Fluticasone Propionate 50 MCG/ACT INSTILL 1 SPRAY INTO EACH NOSTRIL ONCE DAILY; Duration: 90 Active levoFLOXacin 500 MG 1 tablet Orally Once a day; Duration: 5 days 05/07/2024 Not-Taking Attends Breathable Briefs Med Change up to 6 times daily Dx: N39.46; Duration: 90 days 04/14/2024 Active HumaLOG KwikPen 100 UNIT/ML INJECT 10 TO 14 UNITS SUBCUTANEOUSLY ONCE PER DAY PER SLIDING SCALE; Duration: 90 Active Omeprazole 20 MG TAKE 1 CAPSULE BY [facility] EVERY DAY 30 MINUTES BEFORE MORNING MEAL FOR 30 DAYS; Duration: 90 days Active Medical Compression Stockings - Apply daily 25-30 mm DX: R60.9; Duration: 30 days 10/21/2023 Active Entresto 24-26 MG 1 tablet Orally Twic e a day; Duration: 30 day(s) 12/13/2022 Active Carvedilol 12.5 MG 1 tablet with food Orally Twice a day; Duration: 30 days Active Eliquis 5 MG 1 tablet Orally Twic e a day; Duration: 30 day(s) 07/11/2022 Active Vitamin D3 25 MCG (1000 UT) 1 tablet Orally Once a day; Duration: 90 days Active Finasteride 5 MG 1 tablet Orally Once a day; Duration: 90 days Active Furosemide 20 MG 1 tablet Orally Once a day; Duration: 90 days 06/29/2024 Active Aspirin Adult Low Dose 81 MG 1 tablet Orally Once a day; Duration: 90 days Active Tamsulosin HCl 0.4 MG 1 capsule Orally O nce a day 01/15/2023 Active Docusate Sodium 100 MG 1 capsule as need ed Orally Once a day 01/15/2023 Active Ozempic (1 MG/DOSE) 4 MG/3ML 2 mg Subcutaneous weekly; Duration: 30 days Active Social History Tobacco Use: Social History Observation Description Date Details (start date - stop date) Never Smoker NA - NA Tobacco Use/Smoking Question Answer Notes Are you a nonsmoker Alcohol Screen (Audit-C) Question Answer Notes Did you have a drink containing alcohol in the p ast year? No Points 0 Interpretation Negative Problems Problem Type SNOMED Code ICD Code Onset Dates Problem Status W/U Status Risk Notes Problem Diabetic neuropathy (341035490) Diabetes mellitus due to underlying condition with diabetic neuropathy, unspecified (E08.40) Active confirmed Vital Signs Temperature 96.2 degrees Fahrenheit 01/28/20 25 Oximetry 99 % 01/27/2025 Heart Rate 84 /min 01/27/2025 Blood pressure systolic 112 mm Hg 01/28/20 25 Blood pressure diastolic 70 mm Hg 025 Weight 171.4 lbs 01/27/2025 BMI 26.06 kg/m2 01/27/2025 Height 5'8'' in 01/27/2025 Encounters Encounter Location Date Provider Diagnosis [facility] [address] [place] [address] 01/27/2025 MAYE MALIK Diabetes mellitus du e to underlying condition with diabetic neuropathy, unspecified E08.40 ; Cardiomyopathy, unspecified I42.9 ; Essential (primary) hypertension I10 ; Mixed hyperlipidemia E78.2 ; Peripheral vascular disease, unspecified I73.9 and Gastro-esophageal reflux disease without esophagitis K21.9 Assessments Encounter Date Diagnosis (ICD Code) Assessment Notes Treatment Notes Treatment Clinical Notes Section Notes 01/27/2025 Diabetes mellitus due to underlying condition with diabetic neuropathy, unspecified (ICD-10 - E08.40) Mr. Duong is a 74-year-old gentleman with insulin-depende nt DM2 with neuropathy, hypertension, hyperlipidemia, PVD, GERD, CAD s/p CABG x3, ICD placement is here follow up. Diabetes mellitus type 2 with neuropathy. His last A1c is 8.5 and his home blood sugar numbers are running high. Increase Lantus to 30 units and increase Ozempic to 2 mg every weekly and continue Metformin 1000 mg twice a day with sliding scale insulin and recheck hemoglobin A1c in 3 months. He is currently on atorvastatin 40 mg daily. Cardiomyopathy/ hypertension/at rial flutter. He is stable and he does not appear to be in volume overload. He is on Lasix 20 mg daily, carvedilol 12.5 mg daily and Entresto 24/26 mg 1 tablet twice a day. He is rate controlled and he is on Eliquis 5 mg 1 tablet twice a day. BPH with lower urinary tract symptoms. Continue on finasteride and he can take Flomax 0.4 mg 2 tablets at the same time and he follows up with urologist. Acid reflux. Continue on omeprazole 20 mg 1 tablet daily. Diabetic neuropathy. He is on gabapentin 300 mg 3 times a day and he can also take Tylenol arthritis as needed. Screening blood work before next appointment. 01/27/2025 Cardiomyopathy, unspecified (ICD-10 - I42.9) Mr. Duong is a 74-year-old gentleman with insulin-depende nt DM2 with neuropathy, hypertension, hyperlipidemia, PVD, GERD, CAD s/p CABG x3, ICD placement is here follow up. Diabetes mellitus type 2 with neuropathy. His last A1c is 8.5 and his home blood sugar numbers are running high. Increase Lantus to 30 units and increase Ozempic to 2 mg every weekly and continue Metformin 1000 mg twice a day with sliding scale insulin and recheck hemoglobin A1c in 3 months. He is currently on atorvastatin 40 mg daily. Cardiomyopathy/ hypertension/at rial flutter. He is stable and he does not appear to be in volume overload. He is on Lasix 20 mg daily, carvedilol 12.5 mg daily and Entresto 24/26 mg 1 tablet twice a day. He is rate controlled and he is on Eliquis 5 mg 1 tablet twice a day. BPH with lower urinary tract symptoms. Continue on finasteride and he can take Flomax 0.4 mg 2 tablets at the same time and he follows up with urologist. Acid reflux. Continue on omeprazole 20 mg 1 tablet daily. Diabetic neuropathy. He is on gabapentin 300 mg 3 times a day and he can also take Tylenol arthritis as needed. Screening blood work before next appointment. 01/27/2025 Essential (primary) hypertension (ICD-10 - I10) Mr. Duong is a 74-year-old gentleman with insulin-depende nt DM2 with neuropathy, hypertension, hyperlipidemia, PVD, GERD, CAD s/p CABG x3, ICD placement is here follow up. Diabetes mellitus type 2 with neuropathy. His last A1c is 8.5 and his home blood sugar numbers are running high. Increase Lantus to 30 units and increase Ozempic to 2 mg every weekly and continue Metformin 1000 mg twice a day with sliding scale insulin and recheck hemoglobin A1c in 3 months. He is currently on atorvastatin 40 mg daily. Cardiomyopathy/ hypertension/at [facility]. He is stable and he does not appear to be in volume overload. He is on Lasix 20 mg daily, carvedilol 12.5 mg daily and Entresto 24/26 mg 1 tablet twice a day. He is rate controlled and he is on Eliquis 5 mg 1 tablet twice a day. BPH with lower urinary tract symptoms. Continue on finasteride and he can take Flomax 0.4 mg 2 tablets at the same time and he follows up with urologist. Acid reflux. Continue on omeprazole 20 mg 1 tablet daily. Diabetic neuropathy. He is on gabapentin 300 mg 3 times a day and he can also take Tylenol arthritis as needed. Screening blood work before next appointment. 01/27/2025 Mixed hyperlipidemia (ICD-10 - E78.2) Mr. Duong is a 74-year-old gentleman with insulin-depende nt DM2 with neuropathy, hypertension, hyperlipidemia, PVD, GERD, CAD s/p CABG x3, ICD placement is here follow up. Diabetes mellitus type 2 with neuropathy. His last A1c is 8.5 and his home blood sugar numbers are running high. Increase Lantus to 30 units and increase Ozempic to 2 mg every weekly and continue Metformin 1000 mg twice a day with sliding scale insulin and recheck hemoglobin A1c in 3 months. He is currently on atorvastatin 40 mg daily. Cardiomyopathy/ hypertension/at rial flutter. He is stable and he does not appear to be in volume overload. He is on Lasix 20 mg daily, carvedilol 12.5 mg daily and Entresto 24/26 mg 1 tablet twice a day. He is rate controlled and he is on Eliquis 5 mg 1 tablet twice a day. BPH with lower urinary tract symptoms. Continue on finasteride and he can take Flomax 0.4 mg 2 tablets at the same time and he follows up with urologist. Acid reflux. Continue on omeprazole 20 mg 1 tablet daily. Diabetic neuropathy. He is on gabapentin 300 mg 3 times a day and he can also take Tylenol arthritis as needed. Screening blood work before next appointment. 01/27/2025 Peripheral vascular disease, unspecified (ICD-10 - I73.9) Mr. Duong is a 74-year-old gentleman with insulin-depende nt DM2 with neuropathy, hypertension, hyperlipidemia, PVD, GERD, CAD s/p CABG x3, ICD placement is here follow up. Diabetes mellitus type 2 with neuropathy. His last A1c is 8.5 and his home blood sugar numbers are running high. Increase Lantus to 30 units and increase Ozempic to 2 mg every weekly and continue Metformin 1000 mg twice a day with sliding scale insulin and recheck hemoglobin A1c in 3 months. He is currently on atorvastatin 40 mg daily. Cardiomyopathy/ hypertension/at rial flutter. He is stable and he does not appear to be in volume overload. He is on Lasix 20 mg daily, carvedilol 12.5 mg daily and Entresto 24/26 mg 1 tablet twice a day. He is rate controlled and he is on Eliquis 5 mg 1 tablet twice a day. BPH with lower urinary tract symptoms. Continue on finasteride and he can take Flomax 0.4 mg 2 tablets at the same time and he follows up with urologist. Acid reflux. Continue on omeprazole 20 mg 1 tablet daily. Diabetic neuropathy. He is on gabapentin 300 mg 3 times a day and he can also take Tylenol arthritis as needed. Screening blood work before next appointment. 01/27/2025 Gastro-esophageal reflux disease without esophagitis (ICD-10 - K21.9) Mr. Duong is a 74-year-old gentleman with insulin-depende nt DM2 with neuropathy, hypertension, hyperlipidemia, PVD, GERD, CAD s/p CABG x3, ICD placement is here follow up. Diabetes mellitus type 2 with neuropathy. His last A1c is 8.5 and his home blood sugar numbers are running high. Increase Lantus to 30 units and increase Ozempic to 2 mg every weekly and continue Metformin 1000 mg twice a day with sliding scale insulin and recheck hemoglobin A1c in 3 months. He is currently on atorvastatin 40 mg daily. Cardiomyopathy/ hypertension/at rial flutter. He is stable and he does not appear to be in volume overload. He is on Lasix 20 mg daily, carvedilol 12.5 mg daily and Entresto 24/26 mg 1 tablet twice a day. He is rate controlled and he is on Eliquis 5 mg 1 tablet twice a day. BPH with lower urinary tract symptoms. Continue on finasteride and he can take Flomax 0.4 mg 2 tablets at the same time and he follows up with urologist. Acid reflux. Continue on omeprazole 20 mg 1 tablet daily. Diabetic neuropathy. He is on gabapentin 300 mg 3 times a day and he can also take Tylenol arthritis as needed. Screening blood work before next appointment. Plan Of Treatment Medication Medication Name Sig Start Date Stop Date Notes Lantus SoloStar 100 UNIT/ML INJECT 30 UN ITS SUBCUTANEOUSLY ONCE A DAY; DX: E11.8; Duration: 90 days Finasteride 5 MG 1 tablet Orally Once a day; Duration: 90 days Ozempic (1 MG/DOSE) 4 MG/3ML 2 mg Subcut aneous weekly; Duration: 30 days Future Test Test Name Order Date Hemoglobin [id number] 01/27/2025 Albumin/Creatinine Ratio,[id number] Lipid Panel-[id number] 01/27/2025 Comp. Metabolic Panel [id number] Next Appt Details Follow Up: 4 Months, Reason: Provider Name:MAYE MALIK , 05/31/2025 10:30:00 AM, [address] [place] [address], [phone], Progress Notes * Keren DUONG RDOB:[birth year] (74 yo M)Acc No.[id number]:01/27/2025 Progress Notes Patient: Keren FRIEDMAN Provider: Alina MALIK MD :[id number] A ge:74 Y S ex:Male Date:01/27/2025 Address:[address] [place] [address], [id number] Subjective: * Chief Complaints: * 3 month f/u * HPI: I nternal Medicine: Mr. Duong is a 74-year-old gentleman with insulin-dependent DM2 with neuropathy, hypertension, hyperlipidemia, PVD, GERD, CAD s/p CABG x3, ICD placement is here follow up. He he checks his blood sugars at home and they are above the cutoff. He is currently on Lantus and also on sliding scale insulin and Ozempic 1 mg daily. He has BPH with lower urinary tract symptoms and he had admission with urinary retention and he needs a refill on finasteride and he is also on Flomax 0.4 mg daily. He is physically active but he does not exercise. He follows up with cardiology at [facility]. He does not appear to be anxious or depressed. He sleeps fine, appetite is good. His weight is stable. No other complaints today. * ROS: G eneral/Constitutional: Overall health G ood. C hange in appetite d enies.?Chills d enies. F ever d enies. N ight sweats d enies. S leep disturbance d enies. W eight gain d enies. W eight loss d enies. N eurologic: Difficulty speaking d enies. D izziness d enies.?Gait abnormality d enies. H eadache d enies. L oss of strength d enies. M carmen loss d enies. S eizures d enies. T ingling/Numbness d enies . O phthalmologic: Blurred vision d enies. D ischarge d enies. D ry eye d enies. R ed eye d enies. E NT: Change in Voice D enies. C old Symptoms D enies.?Cough D enies. D izziness D enies. N luis carlos Congestion D enies. O talgia?Denies. p ostnasal drip D enies. B locked ear d enies. N osebleed d enies. S noring d enies. C ardiovascular: Diaphoresis D enies. P edal Edema D enies. P ND (Paroxsymal nocturnal dyspnea) D enies. C hest pain d enies. D ifficulty laying flat d enies. D yspnea on exertion d enies. H eart murmur d enies. O rthopnea?denies. R espiratory: Snoring d enies. A sthma d enies. C ough d enies. S hortness of breath with exertion d enies. S putum production d enies. W heezing d enies. G astrointestinal: Change in bowel habits d enies. C onstipation d enies. D ecreased appetite d enies. D iarrhea d enies. H eartburn d enies. N ausea d enies. V omiting d enies. M usculoskeletal: tingling/numbness D enies. m yalgias D enies. J oint Swelling D enies. e xtremeties n ormal. A rthritis d enies. B ack problems d enies. C arpal tunnel d enies. J oint stiffness d enies. M uscle aches d enies. E ndocrine: Bowel Changes D enies. B reast Discharge D enies.?poor libido D enies. C old intolerance d enies. E xcessive sweating d enies.?Excessive thirst d enies. F requent urination d enies. T hyroid problems d enies. S kin: Bruising D enies. E czema d enies. H air changes d enies. R damaso d enies. S kin lesion(s) d enies. P sychiatric: Anxiety d enies. D epressed mood d enies. D ifficulty sleeping d enies. N ervous breakdown d enies. S ubstance abuse d enies.? U rology: abnormal menstrual bleeding d enies. b lood in urine?denies. b urning on urination d enies. d ifficulty urinating d enies. d ischarge d enies. d ysuria d enies. * Medical History: * Surgical History: l umbar puncture CABG x3 * Hospitalization/Major Diagno stic Procedure: * Family History: S jacqueline: diagnosed with Diabetes. * Social History: T obacco Use: T obacco Use/Smoking A re you a n onsmoker D rugs/Alcohol: A lcohol Screen (Audit-C) D id you have a drink containing alcohol in the past year? N o P oints 0 I nterpretation N egative Do you smoke marijuana?: no. M iscellaneous: E xercise: no, walks with a cane, gait instability. Marital status: . Occupation: Retired. * Medications: T akingFurosemide 20 MG Tablet 1 tablet Orally Once a day Finasteride 5 MG Tablet 1 tablet Orally Once a day Docusate Sodium 100 MG Capsule 1 capsule as needed Orally Once a day Tamsulosin HCl 0.4 MG Capsule 1 capsule Orally Once a day Aspirin Adult Low Dose 81 MG Tablet Delayed Release 1 tablet Orally Once a day Eliquis 5 MG Tablet 1 tablet Orally Twice a day Carvedilol 12.5 MG Tablet 1 tablet with food Orally Twice a day Entresto 24-26 MG Tablet 1 tablet Orally Twice a day Medical Compression Stockings - Miscellaneous Apply daily 25-30 mm DX: R60.9 Vitamin D3 25 MCG (1000 UT) Tablet 1 tablet Orally Once a day Attends [facility] Change up to 6 times daily Dx: N39.46 Fluticasone Propionate 50 MCG/ACT Suspension INSTILL 1 SPRAY INTO EACH NOSTRIL ONCE DAILY Omeprazole 20 MG Capsule Delayed Release TAKE 1 CAPSULE BY MOUTH EVERY DAY 30 MINUTES BEFORE MORNING MEAL FOR 30 DAYS HumaLOG KwikPen 100 UNIT/ML Solution Pen-injector INJECT 10 TO 14 UNITS SUBCUTANEOUSLY ONCE PER DAY PER SLIDING SCALE Lantus SoloStar 100 UNIT/ML Solution Pen-injector INJECT 30 UNITS SUBCUTANEOUSLY ONCE A DAY; DX: E11.8 Accu-Chek Nelly Plus - Strip Check blood sugars DX: E11.8 In Vitro Three times a day Atorvastatin Calcium 40 MG Tablet TAKE 1 TABLET BY MOUTH EVERY DAY FOR 90 DAYS Ozempic (1 MG/DOSE) 4 MG/3ML Solution Pen- injector 2 mg Subcutaneous weekly Gabapentin 300 MG Capsule TAKE 1 CAPSULE BY MOUTH THREE TIMES A DAY metFORMIN HCl 1000 MG Tablet 1 tablet with a meal Orally 2 times a day Taking Furosemide 20 MG Tablet 1 tablet Orally Once a day Taking Finasteride 5 MG Tablet 1 tablet Orally Once a day Taking Docusate Sodium 100 MG Capsule 1 capsule as needed Orally Once a day Taking Tamsulosin HCl 0.4 MG Capsule 1 capsule Orally Once a day Taking Aspirin Adult Low Dose 81 MG Tablet Delayed Release 1 tablet Orally Once a day Taking Eliquis 5 MG Tablet 1 tablet Orally Twice a day Taking Carvedilol 12.5 MG Tablet 1 tablet with food Orally Twice a day Taking Entresto 24-26 MG Tablet 1 tablet Orally Twice a day Taking Medical Compression Stockings - Miscellaneous Apply daily 25-30 mm DX: R60.9 Taking Vitamin D3 25 MCG (1000 UT) Tablet 1 tablet Orally Once a day Taking [facility] Med Change up to 6 times daily Dx: N39.46 Taking Fluticasone Propionate 50 MCG/ACT Suspension INSTILL 1 SPRAY INTO EACH NOSTRIL ONCE DAILY Taking Omeprazole 20 MG Capsule Delayed Release TAKE 1 CAPSULE BY MOUTH EVERY DAY 30 MINUTES BEFORE MORNING MEAL FOR 30 DAYS Taking HumaLOG KwikPen 100 UNIT/ML Solution Pen-injector INJECT 10 TO 14 UNITS SUBCUTANEOUSLY ONCE PER DAY PER SLIDING SCALE Taking Lantus SoloStar 100 UNIT/ML Solution Pen-injector INJECT 30 UNITS SUBCUTANEOUSLY ONCE A DAY; DX: E11.8 Taking Accu-Chek Nelly Plus - Strip Check blood sugars DX: E11.8 In Vitro Three times a day Taking Atorvastatin Calcium 40 MG Tablet TAKE 1 TABLET BY MOUTH EVERY DAY FOR 90 DAYS Taking Ozempic (1 MG/DOSE) 4 MG/3ML Solution Pen-injector 2 mg Subcutaneous weekly Taking Gabapentin 300 MG Capsule TAKE 1 CAPSULE BY MOUTH THREE TIMES A DAY Taking metFORMIN HCl 1000 MG Tablet 1 tablet with a meal Orally 2 times a day Not-TakinglevoFLOXacin 500 MG Tablet 1 tablet Orally Once a day Mounjaro 15 MG/0.5ML Solution Pen-injector as directed Subcutaneous weekly Mounjaro 12.5 MG/0.5ML Solution Pen-injector inject 10 mg Subcutaneous once a week Nitroglycerin 0.4 MG Tablet Sublingual Take 1 pill if no improvement take another pill after 5 minutes and if no improvement take another pill after 5 minutes and call Sublingual Once a day Levocetirizine Dihydrochloride 5 [...] as needed Orally Once a day Pen Lawrence 31G X 8 MM Miscellaneous as directed subq once daily Lubiprostone 24 MCG Capsule 1 capsule with food and water Orally Twice a day Ozempic (0.25 or 0.5 MG/DOSE) 2 MG/1.5ML Solution Pen-injector 0.25 mg for 1 month then increase to 0.5 mg Subcutaneous once a week Not-Taking levoFLOXacin 500 MG Tablet 1 tablet Orally Once a day Not-Taking Mounjaro 15 MG/0.5ML Solution Pen-injector as directed Subcutaneous weekly Not-Taking Mounjaro 12.5 MG/0.5ML Solution Pen-injector inject [...] needed Orally Once a day Not-Taking Pen Lawrence 31G X 8 MM Miscellaneous as directed subq once daily Not-Taking Lubiprostone 24 MCG Capsule 1 capsule with food and water Orally Twice a day Not-Taking Ozempic (0.25 or 0.5 MG/DOSE) 2 MG/1.5ML Solution Pen-injector 0.25 mg for 1 month then increase to 0.5 mg Subcutaneous once a week * Allergies: N .K.D.A.no[Allergies Verified] Objective: * Vitals: T emp: 96.2 F, Oxygen sat %: 99 %, HR: 84 /min, BP: 112/70 mm Hg, Wt: 171.4 lbs, BMI: 26.06 Index, Ht: 5'8''. * P ast Orders: L ab:COMPREHENSIVE METABOLIC PANEL (Order Date - 05/30/2023) (Collection Date & Time - 05/30/2023 04:28 PM) Value Reference Range ALBUMIN 4.2 (3.4-4.8) - GM/DL ALK PHOS 112 (40-129) - U/L BILIRUBIN,TOTAL 0.4 (0-1.2) - MG/DL CALCIUM 9.7 (8.6-10.5) - MG/DL BICARBONATE 30 H (22-29) - MMOL/L CHLORIDE 102 (98-107) - MMOL/L EST GFR NON 74 - ML/MIN/1. 73 M2 CREATININE 1.1 (0.7-1.2) - MG/DL ANION GAP 11 (4-17) - GLUCOSE 230 H (70-99) - MG/DL AST 30 (0-40) - U/L ALT 27 (0-41) - U/L POTASSIUM 3.9 (3.6-5.2) - MMOL/L SODIUM 143 (133-145) - MMOL/L TOTAL PROTEIN 8.2 (6.2-8.2) - GM/DL BUN 25 H (8-23) - MG/DL AG RATIO 1.1 - L ab:HEMOGLOBIN A1C WITH EST GLUCOSE (Order Date - 05/30/2023) (Collection Date & Time - 05/30/2023 04:28 PM) Value Reference Range HEMOGLOBIN A1C 8.5 H (4.0-5.6) - % ESTIMATE AVERAGE GLUCOSE 197 - MG/DL L ab:LIPID PANEL (Order Date - 05/30/2023) (Collection Date & Time - 05/30/2023 04:28 PM) Value Reference Range LDL CHOLESTEROL, CALCULATED 39 (0-130) - MG /DL CHOLESTEROL, TOTAL 121 (<200) - MG/DL HDL CHOL 31 L (>39) - MG/DL NON HDL CHOLESTEROL (CALC) 90 (<160) - MG/D L TRIGLYCERIDE 253 H (<150) - MG/DL L ab:MICROALBUMIN, URINE (Order Date - 05/30/2023) (Collection Date & Time - 05/30/2023 04:28 PM) Value Reference Range MICRO-ALBUMIN 459.0 H (<20) - MG/L MALB/CREAT RATIO 1310.3 H (0-20) - MG/GM URINE CREAT FOR MICRO ALBUMIN 35.0 - MG/DL * Examination: G eneral Examination: GENERAL APPEARANCE: W ell developed, well nourished, in no acute distress. MUSCULOSKELETAL: N ormal. HEAD: N ormocephalic, atraumatic. EYES: P upils equal, round, reactive to light and accommodation, sclera non-icteric. EARS: N ormal. ORAL CAVITY: N ormal. THROAT: C lear. OROPHARYNX N ormal. SINUSES N ormal. NECK/THYROID: N mary supple, full range of motion, no cervical lymphadenopathy. SKIN: W arm and dry, no suspicious lesions. HEART: S 1, S2 normal regular rate and rhythm no murmurs, rubs, gallops . LUNGS: c lear anteriorly and posteriorly good air movement no wheezes, rales, rhonchi . BREASTS: _ _. ABDOMEN: S oft, nontender, nondistended, bowel sounds present, normal. EXTREMITIES: N ormal. PERIPHERAL PULSES: N ormal. NEUROLOGIC: N onfocal, appropriate m otor strength normal upper and lower extremities, sensory exam intact. Psychiatry N ormal. FEMALE GENITOURINARY: _ _. MALE GENITOURINARY: _ _. PODIATRIC: N ormal. Forest Logistics Manager _ ____. Assessment: * Assessment: 1. D iabetes mellitus due to underlying condition with diabetic neuropathy, unspecified - E08.40 (Primary) 2 . C ardiomyopathy, unspecified - I42.9 3 . E ssential (primary) hypertension - I10 4 . M ixed hyperlipidemia - E78.2 & #160; 5 . P eripheral vascular disease, unspecified - I73.9 6 . G juan-esophageal reflux disease without esophagitis - K21.9 Mr. Duong is a 74-year-old ge ntleman with insulin-dependent DM2 with neuropathy, hypertension, hyperlipidemia, PVD, GERD, CAD s/p CABG x3, ICD placement is here follow up. Diabetes mellitus type 2 with neuropathy. His last A1c is 8.5 and his home blood sugar numbers are running high. Increase Lantus to 30 units and increase Ozempic to 2 mg every weekly and continue Metformin 1000 mg twice a day with sliding scale insulin and recheck hemoglobin A1c in 3 months.? He is currently on atorvastatin 40 mg daily. Cardiomyopathy/hypertension/atrial flutter. He is stable and he does not appear to be in volume overload. He is on Lasix 20 mg daily, carvedilol 12.5 mg daily and Entresto 24/26 mg 1 tablet twice a day. He is rate controlled and he is on Eliquis 5 mg 1 tablet twice a day. BPH with lower urinary tract symptoms. Continue on finasteride and he can take Flomax 0.4 mg 2 tablets at the same time and he follows up with urologist. Acid reflux. Continue on omeprazole 20 mg 1 tablet daily. Diabetic neuropathy. He is on gabapentin 300 mg 3 times a day and he can also take Tylenol arthritis as needed. Screening blood work before next appointment. Plan: * Treatment: * Labs: * L ab: Hemoglobin [id number] (Ordered for 01/27/2025) L ab: Lipid Panel-[id number] (Ordered for 01/27/2025) L ab: Comp. Metabolic Panel [id number] (Ordered for 01/27/2025) L ab: Albumin/Creatinine Ratio,Urine-[id number] (Ordered for 01/27/2025) * Procedure Codes: * Follow Up: 4 Months * Images: * Sign off status: Completed true * Provider: Alina MALIK MD Date: 0 01/27/2025 Generated for Printi ng/Faxing/eTransmitting on: 0 01/28/2025 08:59 AM EDT History and Physical Notes * HPI (History of Present Illness) Category Sub-Category Detail Notes Category Not es Internal Medicine Mr. Seun stern a 74-year-old gentleman with insulin-dependent DM2 with neuropathy, hypertension, hyperlipidemia, PVD, GERD, CAD s/p CABG x3, ICD placement is here follow up. He he checks his blood sugars at home and they are above the cutoff. He is currently on Lantus and also on sliding scale insulin and Ozempic 1 mg daily. He has BPH with lower urinary tract symptoms and he had admission with urinary retention and he needs a refill on finasteride and he is also on Flomax 0.4 mg daily. He is physically active but he does not exercise. He follows up with cardiology at [facility]. He does not appear to be anxious or depressed. He sleeps fine, appetite is good. His weight is stable. No other complaints today. 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
[2025-01-28 08:50] VITALS: BP 120/56; PULSE 90; BMI 26.8
--- NOTE | 2025-01-28 08:50 | MHC.OFFVIS ---
Vital Signs 01/28/25 08:50 Height 5 ft 7 in Weight 171 lb 1.259 oz BMI 26.8 BP 120/56 L Blood Pressure Location Rt brachial Position Sitting Pulse 90 Pulse Source Pulse Oximeter Intake Visit Reasons: dr guidry pt Worsening peripheral edema Breed To Wean Production Technician Required: No Solar Sales Representative: Solar Sales Representative Present Allergies No Known Allergies Allergy (Verified 01/28/25 08:54) Medication List - Last Reconciled 01/28/25 by RADHA Alba acetaminophen (Tylenol Extra Strength) 1,000 mg PO QPM PRN acetaminophen ER (Mapap Arthritis Pain) 1,300 mg PO Q12H PRN apixaban (Eliquis) 5 mg PO BID 90 days atorvastatin 40 mg PO DAILY blood sugar diagnostic (Accu-Chek Nelly Plus test strips) 4 x/day carvedilol 12.5 mg PO BID 90 days cholecalciferol (vitamin D3) 25 mcg PO DAILY docusate sodium 100 mg PO BID dulaglutide (Trulicity) mg subcut QWEEK dulaglutide (Trulicity) mg subcut ferrous sulfate 300 mg (6.8182 mL) PO DAILY fluticasone propionate 50 mcg/actuation 1 spray intranasal DAILY furosemide (Lasix) 20 mg PO DAILY gabapentin 100 mg PO TID insulin degludec (Tresiba FlexTouch U-100 insulin) 24 units subcut DAILY insulin lispro (Humalog KwikPen (U-100) Insulin) 4 - 6 units (0.04 - 0.06 mL) subcut TID isosorbide mononitrate ER 30 mg PO DAILY levocetirizine 5 mg PO QPM metformin 1,000 mg PO BID nitroglycerin 0 mg sublingual omeprazole 20 mg PO BID sacubitril-valsartan 24-26 mg (Entresto) 1 tab PO BID 90 days tamsulosin 0.4 mg PO DAILY HPI HPI dr guidry pt Worsening peripheral edema: Details: Laron is a 74-year-old male with past medical history of hypertension, hyperlipidemia, diabetes, peripheral artery disease, CVA, cardiomyopathy, left bundle branch block, CAD, Bi V ICD who presents for follow-up. Today he reports he has been noticing increased swelling in his lower legs at times. He otherwise feels well except for left knee discomfort. He is hoping to have total knee replacement in the near future. He ambulates with a cane and admits to being sedentary. No chest discomfort at rest or with activity. No concerning shortness of breath, PND, orthopnea. No lightheadedness, presyncope, syncope, falls. Takes all meds as directed. Son is present. [facility] Medical History Pacemaker Cerebrovascular accident (CVA) determined by clinical assessment Screening for prostate cancer Screening for colon cancer PAD (peripheral artery disease) Type 2 diabetes mellitus with hypoglycemia Gout CAD (coronary artery disease) GERD (gastroesophageal reflux disease) Type 2 diabetes mellitus with hyperglycemia, with long-term current use of insulin Type 2 diabetes mellitus with diabetic polyneuropathy Hyperlipidemia LDL goal <70 Vitamin D deficiency Essential hypertension Surgical History Hx of removal of cyst History of open heart surgery Family History Mother CVD (cardiovascular disease) Father No problems noted. Other Pacemaker Social History Household Members: Family Housing: House Alcohol intake: never Patient Tobacco Use Status: Never used Tobacco e-Cigarette/Vaping Use: Never Used Second Hand Smoke Exposure: No service: No Current occupational status: retired Cognitive needs: No Hearing needs: No Vision needs: No Review of Systems Const All systems reviewed & are unremarkable except as noted in HPI and below ENT Denies dizziness Card Denies chest pain, Denies chest pain at rest, Denies chest pain with activity, Denies rapid heart rate, Denies pedal edema, Denies edema, Reports leg edema, Denies lightheadedness, Denies palpitations, Denies dyspnea, Denies dyspnea on exertion and Denies orthopnea Resp Denies cough, Denies dyspnea and Denies dyspnea on exertion GI Denies hematochezia and Denies change in stool character Musc Reports abnormal gait (left knee pain), Denies limited range of motion, Denies muscle cramps, Denies muscle weakness, Denies numbness, Denies radiating pain into limb, Denies stiffness and Denies tingling Neuro Reports abnormal gait (left knee pain), Denies dizziness, Denies numbness and Denies tingling Endo Denies palpitations Physical Exam Vital Signs: Last Vital Signs Pulse 90 01/28/25 08:50 BP 120/56 L 01/28/25 08:50 BMI result Body Mass Index 26.8 Const General: cooperative, healthy appearing, comfortable and no acute distress Orientation/consciousness: patient oriented x3 Neck Neck: Yes normal visual inspection Resp Effort & Inspection: normal respiratory effort Auscultation: clear to auscultation bilaterally, no crackles, no rales, no rhonchi and no wheezes Cardio Rate: regular rate Rhythm: regular rhythm Heart sounds: S1 normal heart sound present, S2 normal heart sound present, no gallops, no murmurs and no rubs Neuro General: patient oriented x3 Extrem Other: trace bilateral lower leg edema General: Yes normal to inspection Psych Appearance: grossly normal Mental Status: mental status grossly normal Speech and movement: Normal speech and movement present Office Procedures EKG Details: Today, read by me, atrial sensed, ventricular paced rhythm, rate 90, JT index 88. [id number], Complete Assessment & Plan Assessment & Plan (1) Cardiomyopathy: Code(s): I42.9 - Cardiomyopathy, unspecified Category: Medical Plan: Known history of CAD with prior coronary artery bypass grafting in 2005. History of cardiomyopathy with EF as low as 15-20%, ischemic. Last cardiac catheterization in 2022 showed patent grafts. Last echocardiogram 09/03/2023 showed EF 31%, wall motion abnormality consistent with CAD, unchanged from prior. He has a Bi V ICD in place. He does not appear fluid overloaded on exam. He has been getting some mild ankle edema so I will have him take his usual Lasix 20 mg daily with additional tablet p.r.n. for edema. Continue carvedilol and Entresto for neurohormonal modulation. He had been on Jardiance however developed UTI and incontinence. Unclear if it was related to the medication. Medicine was stopped. At this time he has no urological issues. Signs and symptoms of heart failure reviewed with him. Cardiology follow-up in 3-4 months, sooner if needed. (2) CAD (coronary artery disease): Comment: s/p CABG BATEMAN to LAD, SVG to OM1 and radial graft to OM 3. No grafts placed to the RCA Code(s): I25.10 - Atherosclerotic heart disease of levelock coronary artery without angina pectoris Category: Medical Plan: History of CAD with three-vessel coronary artery bypass grafting remotely. Cardiac catheterization 2022 showed patent grafts. Currently no anginal symptoms. He is not on aspirin since he is on Eliquis. Continue atorvastatin with ideal LDL goal less than 70. Continue carvedilol, isosorbide, Entresto. Signs and symptoms of angina reviewed. (3) LBBB (left bundle branch block): Code(s): I44.7 - Left bundle-branch block, unspecified Category: Medical Plan: Prior to placement of INSTRUMENT FITTER D (4) ICD (implantable cardioverter-defibrillator), biventricular, in situ: Comment: Medtronic Bi V ICD in place Code(s): Z95.810 - Presence of automatic (implantable) cardiac defibrillator Category: Medical Plan: Medtronic Bi V ICD in place. Functioning normally on last interrogation. Has remote monitoring in use. (5) Essential hypertension: Code(s): I10 - Essential (primary) hypertension Category: Medical Plan: BP goal < 130/80 Well controlled at this time. No med changes made. 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 Code(s): Z98.890 - Other specified postprocedural states Category: Surgical (7) Preop cardiovascular exam: Code(s): Z01.810 - Encounter for preprocedural cardiovascular examination Category: Medical Plan: Preop for left total knee replacement. Will update echo prior to clearance. Will check with his primary supervisor acoustical tile carpenters to see if Nuclear stress test is needed. Plan to update this note once results available. Plan I discussed with the patient the need for increased furosemide to manage swelling and the importance of a low-salt diet. We talked about the necessity of an echocardiogram and possibly stress test for cardiac clearance before knee surgery. I explained the process of obtaining an EKG for preoperative assessment and emphasized the importance of leg elevation to reduce swelling. Orders: Orders CA echo transthoracic complete Today I25.10 - Atherosclerotic heart disease of level[place] coronary artery without angina pectoris Medications: Changed From furosemide (Lasix) 20 mg PO DAILY 90 tabs 3RF I42.9 - Cardiomyopathy, unspecified To furosemide (Lasix) Take one tablet daily and extra tablet once a day if needed for increased leg swelling 20 mg PO DAILY 120 tabs 3RF I42.9 - Cardiomyopathy, unspecified Patient Instructions: - Take furosemide as prescribed, with extra doses if swelling increases. - Follow a low-salt diet to help manage swelling. - Elevate legs when sitting to reduce swelling. - Prepare for echocardiogram, stress test, and EKG as scheduled. Patient was informed and verbally consented to the use of an ambient scribe for clinic note documentation during this visit. Visit time spent on chart review, interview, assessment, orders, documentation. Coding Level of Care Code Est Pt Level 4 (00833) Complex EM visit Add On G2211 Diagnoses Cardiomyopathy I42.9 CAD (coronary artery disease) I25.10 LBBB (left bundle branch block) I44.7 ICD (implantable cardioverter-defibrillator), biventricular, in situ Z95.810 Essential hypertension I10 S/P cardiac cath Z98.890 Preop cardiovascular exam Z01.810 CPT Codes EKG - CPT: 22228-[id number], Complete ([id number]) Time Spent (min) 32
--- OUTSIDE RECORDS SUMMARY | 2025-01-28 08:59 | XMS_ITS | Clinical Summary ---
Author Organization [facility] Address [address] [facility] [address] [place] [id number] Phone Care Team Providers Care Lodge Attendant Name Role Phone Mary Machuca MD Primary Care Provider Social History Tobacco Use Types Packs/Day Years Used Date Smoking Tobacco: Never Assessed Education Answer Date Recorded Are you interested in more education? Not on tequila e 03/03/2023 Are you concerned about learning? Not on file 03/03/2023 No 03/03/2023 No 03/03/2023 Digital Access Answer Date Recorded No 03/03/2023 No 03/03/2023 Reliable internet access at home? Not on file 03/03/2023 Device with a working camera? Not on file Sex and Gender Information Value Date Recorded Sex Assigned at Not on file Legal Sex Male 9:18 AM EDT Gender Identity Not on file Sexual Orientation Not on file Plan of Treatment Health Maintenance Due Date Last Done Comments Adult Td,Tdap Booster 1948 LIPID PANEL 1948 DEPRESSION SCREENING 1960 SMOKING Hx and SMOKELESS TOB ACCO SCREENING 1961 HEPATITIS C SCREENING 1966 PNEUMOCOCCAL VACCINES (50+ y ears) (1 of 1 - PCV) 1998 ZOSTER VACCINES (1 of 2) 1998 RSV VACCINE (1 - 1-dose 75+ series) 2023 COVID-19 VACCINE ( - 2023-2 5 season) 2024 HEPATITIS A VACCINES Aged Out No long er eligible based on patient's age to complete this topic HIB VACCINES Aged Out No longer eligi ble based on patient's age to complete this topic MENINGOCOCCAL VACCINES (ACWY) Aged Out No longer eligible based on patient's age to complete this topic MENINGOCOCCAL VACCINES (B) Aged Out N o longer eligible based on patient's age to complete this topic Medical Devices Not on file Insurance [facility] [place] [id number] [facility] RE[facility] MEDICARE REPLACEMENT Care Teams Lodge Attendant Relationship Specialty Start Date End Date Mary Machuca MD [address] [facility] [address] [place] [address] PCP - General Internal Medicine 02/28/23 Additional Source Comments The information contained in this document represents components of the legal health record. It is not the complete legal health record.[facility]
--- OUTSIDE RECORDS SUMMARY | 2025-01-28 09:00 | XMS_ITS ---
Author Name Evelin Garcia NP Address [address] [place] [address] Phone [phone] Organization [facility] Care Team Providers Care Loan Specialist Name Role Phone Jose Evelin Unavailable [phone] MAYE WRIGHT Unavailable [phone] LOU CRUZ Unavailable [phone] JOSEMANUEL LINDA Unavailable [phone] Maye Machuca Unavailable [phone] Reason for Referral Not Available Allergies, adverse [...] Data Available BD UF SHORT PEN NEEDLE [id number] DIRECTED SUBQ ONCE DAILY 30 DAYS 2022-04-08 [...] DAY AT BEDTIME 2022-09-01 No Data Available Docusate Sodium 100 mg Cap TAKE 1 CAPSUL E BY MOUTH EVERY DAY 2022-09-18 No Data Available Problem List Problem Status Onset Date Resolved Date Synopsis Type 2 diabetes mellitus with hyperlipidemia Active 2022-04-09 N/A Atorvastatin jonathan ly for hyperlipidemiaHumalog sliding scale, Trulicity weeklyEndo: Lou Cruz Essential hypertension Active 2022-04-09 N/A Ca rvedilol and LisinoprilBP at home- checks daily. Usually 140/80s. Son believes he sees Cardiology yearly, but unable to recall provider name. Follows: Josemanuel Linda - PCP GERD (gastroesophageal reflux disease) Active 2022-04-09 N/A Omeprazole daily Avoid spicy, fried/greasy foods, and eating late at night and lying down to avoid acid reflux.Follow: Josemanuel Linda Constipation Active 2022-04-09 N/A Eddie peña yFollows: Dr. Linda Peripheral vascular disease, unspecified Active 2022-04-09 N/A Cilostazol 100mg BID Follow: Cardiology yearly per sonDr. Linda -PCP [id number]. Encounters Encounters Type Facility Date of Service Diagnosis/Co mplaint Medication List Documented (1159F) [facility] ([place] 04/09/2022 Medication List Documented (1159F) [facility] [place]2022 Medication List Documented (1159F) [facility] [place]/09/2022 Medication List Documented (1159F) [facility] [place]2022 Medication List Documented (1159F) [facility] [place]2022 Medication List Documented (1159F) [facility] [place]/2022 Medication List Documented (1159F) [facility] [place] 04/09/2022 Medication List Documented (1159F) [facility] [place] 04/09/2022 Medication List Documented (1159F) [facility] [place] 04/09/2022 Type 2 diabetes w diabetic peripheral angiopath w/o gangreneType 2 diabetes mellitus with other specified complicationHyperlipidemia, unspecifiedEssential (primary) hypertensionGastro-esophageal reflux disease without esophagitisConstipation, unspecifiedLong term (current) use of insulin RN, CN or CP time with patient by phone; use with 1111F, BP, A1c or other CPTII codes [facility] ([place]) 09/02/2022 Encounter for other specifie d aftercare RN, CN or CP time with patient by phone; use with 1111F, BP, A1c or other CPTII codes [facility], ([place]) 09/02/2022 Vital Signs Date of Collection Vitals 2022-04-09 06:12:57 Height - 172.72 cmWe ight - 70.31 kgBody Mass Index (BMI) - 23.57 kg/m2BP Diastolic - 80.0 mm[Hg]BP Systolic - 140.0 mm[Hg] Social History Social History Social History Observation Description Effec tive Time Current Smoking Status Never smoker 2025-01-14 5 Sex Male History of Procedures Procedures Service [...] 95 for video, modifier 93 for phone [address] 2022-04-09 No Data Available No Data Available RN, CN or CP time with patient by phone; use with 1111F, BP, A1c or other CPTII codes 50004 2022-09-02 No Data Available No Data Avai [...] modifier 95Continue to see PCP. Follow-up with [facility] as needed for any acute or disease education needs that may arise.Atorvastatin daily for hyperlipidemiaHumalog sliding scale, Trulicity weeklyEndo: Lou RonderosCarvedilol and LisinoprilBP at home- checks daily. Usually 140/80s. Son believes he sees Cardiology yearly, but unable to recall provider name. Follows: Josemanuel Linda - PCPOmeprazole dailyAvoid spicy, fried/greasy foods, and eating late at night and lying down to avoid acid reflux.Follow: Josemanuel LindaAmitiheidi dailyFollows: Dr. LindaCilostazol 100mg BID Follow: Cardiology yearly per sonDr. Linda -PCP [id number].Take all medications as prescribedFollow up with providers [...]
--- OUTSIDE RECORDS SUMMARY | 2025-01-28 09:00 | XMS_ITS | Clinical Summary ---
[facility] Address [address] [place] [address] Care Team Providers Care Machine Pack Assembler Name Role Phone Mary Machuca MD Primary Care Provider [phone] Surgical History Surgery Date Site/Laterality Comments CORONARY ARTERY BYPASS GRAFT PROCEDURE: HISTORICAL CABG; COMMENT: x3 Medical History Medical History Date Comments Type 2 diabetes mellitus wit h unspecified complications (CMS/HCC V24, CMS/HCC V28) DX:Type 2 diabetes mellitus with unspecified complications [...] series) 2023 Cholesterol Screening (Lipid Panel) 07/20/2023 Falls Risk Assessment 07/20/2023 Hepatitis C Screening 07/20/2023 Social Influencers of Health Screening 07/20/2023 Hypertension/CHF/CAD Annual BMP Blood Test 08/01/2023 COVID-19 Vaccine (1 - 2023-2 5 season) 2024 Depression Screening 06/16/2024 Influenza Vaccine (#1) 2025 HIB Vaccines Aged Out No longer eligi [...] age to complete this topic Meningococcal B Vaccine Aged Out No l onger eligible based on patient's age to complete this topic RSV Immunization Patients Un jose 20 months Aged Out No longer eligible b ased on patient's age to complete this topic Varicella Vaccines Aged Out No longer eligible based on patient's age to complete this topic Care Teams Machine Pack Assembler Relationship Specialty Start Date End Date Mary Machuca MD [address] [place] [id number] PCP - General 07/17/22
== END 2025-01-28 09:27 | disposition home or self-care (01) ==
LOC: HO.HCS 08:43
PROVIDERS: PCP Hospitalist; Visit Provider Nurse Practitioner Family
DX: I42.9 Cardiomyopathy, unspecified (principal); I25.10 Atherosclerotic heart disease of native coronary artery without angina pectoris; I44.7 Left bundle-branch block, unspecified; Z95.810 Presence of automatic (implantable) cardiac defibrillator; I10 Essential (primary) hypertension; Z98.890 Other specified postprocedural states; Z01.810 Encounter for preprocedural cardiovascular examination
CPT/HCPCS: 93010; 99214; G2211

== ENCOUNTER → 2025-01-28 08:43 | Outpatient (BNVA) | payer OTHER, SELFPAY ==
[2024-07-12 11:49] VITALS: BP 112/58; BP 118/58; BMI 26.1
== END ==
PROVIDERS: PCP Hospitalist; Visit Provider Nurse Practitioner Family
DX: Z01.810 Encounter for preprocedural cardiovascular examination (principal); I42.9 Cardiomyopathy, unspecified; I25.10 Atherosclerotic heart disease of native coronary artery without angina pectoris; I44.7 Left bundle-branch block, unspecified; I10 Essential (primary) hypertension; Z98.890 Other specified postprocedural states; Z95.810 Presence of automatic (implantable) cardiac defibrillator
CPT/HCPCS: 93005; 99212

== ENCOUNTER → 2025-02-10 23:59 | Outpatient (BNV) | payer OTHER, SELFPAY ==
[2024-07-12 11:49] VITALS: BP 112/58; BP 118/58; BMI 26.1
--- NOTE | 2025-02-13 15:19 | MHC.OFFVIS ---
Intake Visit Reasons: Remote HF monitoring- Medtronic Allergies No Known Allergies Allergy (Verified 01/28/25 08:54) [facility] Medical History Pacemaker Cerebrovascular accident (CVA) determined by clinical assessment Screening for prostate cancer Screening for colon cancer PAD (peripheral artery disease) Type 2 diabetes mellitus with hypoglycemia Gout CAD (coronary artery disease) GERD (gastroesophageal reflux disease) Type 2 diabetes mellitus with hyperglycemia, with long-term current use of insulin Type 2 diabetes mellitus with diabetic polyneuropathy Hyperlipidemia LDL goal <70 Vitamin D deficiency Essential hypertension Surgical History Hx of removal of cyst History of open heart surgery Family History Mother CVD (cardiovascular disease) Father No problems noted. Other Pacemaker Social History Household Members: Family Housing: House Alcohol intake: never Patient Tobacco Use Status: Never used Tobacco e-Cigarette/Vaping Use: Never Used Second Hand Smoke Exposure: No service: No Current occupational status: retired Cognitive needs: No Hearing needs: No Vision needs: No Office Procedures Cardiac Device Check Cardiac Device Check Details: HF monitoring Stable thoracic impedance. [id number] Cardiac Device Interrogation, cardio physiologic monitor Procedure code (CPT) selection complete Assessment & Plan Assessment & Plan (1) Cardiomyopathy: Code(s): I42.9 - Cardiomyopathy, unspecified Category: Medical Plan Coding Level of Care Code Procedure Only Diagnoses Cardiomyopathy I42.9 CPT Codes Cardiac Device Check - Cardiac Device 15: [id number] Cardiac Device Interrogation, cardio physiologic monitor ([id number])
== END ==
PROVIDERS: PCP Hospitalist; Visit Provider Internal Medicine Cardiovascular Disease
DX: I42.9 Cardiomyopathy, unspecified (principal); Z95.810 Presence of automatic (implantable) cardiac defibrillator
CPT/HCPCS: 93297

== ENCOUNTER → 2025-04-13 23:59 | Outpatient (BNV) | payer OTHER, SELFPAY ==
[2024-07-12 11:49] VITALS: BP 112/58; BP 118/58; BMI 26.1
--- NOTE | 2025-04-29 21:56 | MHC.OFFVIS ---
Intake Visit Reasons: Remote HF monitoring- [employer] Allergies No Known Allergies Allergy (Verified 01/28/25 08:54) [facility], [facility] Medical History Pacemaker Cerebrovascular accident (CVA) determined by clinical assessment Screening for prostate cancer Screening for colon cancer PAD (peripheral artery disease) Type 2 diabetes mellitus with hypoglycemia Gout CAD (coronary artery disease) GERD (gastroesophageal reflux disease) Type 2 diabetes mellitus with hyperglycemia, with long-term current use of insulin Type 2 diabetes mellitus with diabetic polyneuropathy Hyperlipidemia LDL goal <70 Vitamin D deficiency Essential hypertension Surgical History Hx of removal of cyst History of open heart surgery Family History Mother CVD (cardiovascular disease) Father No problems noted. Other Pacemaker Social History Household Members: Family Housing: House Alcohol intake: never Patient Tobacco Use Status: Never used Tobacco e-Cigarette/Vaping Use: Never Used Second Hand Smoke Exposure: No service: No Current occupational status: retired Cognitive needs: No Hearing needs: No Vision needs: No Office Procedures Cardiac Device Check Cardiac Device Check Details: HF monitoring Stable thoracic impedance. [id number] Cardiac Device Interrogation, cardio physiologic monitor Procedure code (CPT) selection complete Assessment & Plan Assessment & Plan (1) Cardiomyopathy: Code(s): I42.9 - Cardiomyopathy, unspecified Category: Medical Plan Coding Level of Care Code Procedure Only Diagnoses Cardiomyopathy I42.9 CPT Codes Cardiac Device Check - Cardiac Device 15: [id number] Cardiac Device Interrogation, cardio physiologic monitor ([id number])
== END ==
PROVIDERS: PCP Hospitalist; Visit Provider Internal Medicine Cardiovascular Disease
DX: I42.9 Cardiomyopathy, unspecified (principal); Z95.810 Presence of automatic (implantable) cardiac defibrillator
CPT/HCPCS: 93297

== ENCOUNTER → 2025-04-13 23:59 | Outpatient (BNV) | payer OTHER, SELFPAY ==
[2024-07-12 11:49] VITALS: BP 112/58; BP 118/58; BMI 26.1
--- NOTE | 2025-04-29 22:00 | A.OFFVIS_ITS ---
Intake Visit Reasons: Remote device check- [employer] Allergies No Known Allergies Allergy (Verified 01/28/25 08:54) [facility] Medical History Pacemaker Cerebrovascular accident (CVA) determined by clinical assessment Screening for prostate cancer Screening for colon cancer PAD (peripheral artery disease) Type 2 diabetes mellitus with hypoglycemia Gout CAD (coronary artery disease) GERD (gastroesophageal reflux disease) Type 2 diabetes mellitus with hyperglycemia, with long-term current use of insulin Type 2 diabetes mellitus with diabetic polyneuropathy Hyperlipidemia LDL goal <70 Vitamin D deficiency Essential hypertension Surgical History Hx of removal of cyst History of open heart surgery Family History Mother CVD (cardiovascular disease) Father No problems noted. Other Pacemaker Social History Household Members: Family Housing: House Alcohol intake: never Patient Tobacco Use Status: Never used Tobacco e-Cigarette/Vaping Use: Never Used Second Hand Smoke Exposure: No service: No Current occupational status: retired Cognitive needs: No Hearing needs: No Vision needs: No Office Procedures Cardiac Device Check Cardiac Device Check Details: Biv AICD Battery ok [employer] 94% Runs of Afib in february. Longest recorded episode 03/15- 72 hours. [id number] Cardiac Device Interrogation, pacemaker or defibrillator Procedure code (CPT) selection complete Assessment & Plan Assessment & Plan (1) Cardiomyopathy: Code(s): I42.9 - Cardiomyopathy, unspecified Category: Medical Plan Coding Level of Care Code Procedure Only Diagnoses Cardiomyopathy I42.9 CPT Codes Cardiac Device Check - Cardiac Device 14: [id number] Cardiac Device Interrogation, pacemaker or defibrillator ([id number])
== END ==
PROVIDERS: PCP Hospitalist; Visit Provider Internal Medicine Cardiovascular Disease
DX: I42.9 Cardiomyopathy, unspecified (principal); Z95.810 Presence of automatic (implantable) cardiac defibrillator
CPT/HCPCS: 93295

== ENCOUNTER → 2025-05-25 10:13 | Outpatient (BNV) | payer OTHER, SELFPAY ==
[2024-07-12 11:49] VITALS: BP 112/58; BP 118/58; BMI 26.1
== END ==
PROVIDERS: PCP Hospitalist; Visit Provider Internal Medicine Cardiovascular Disease
DX: Z45.02 Encounter for adjustment and management of automatic implantable cardiac defibrillator (principal)
CPT/HCPCS: 93297

== ENCOUNTER → 2025-05-25 10:14 | Outpatient (BNV) | payer OTHER, SELFPAY ==
[2024-07-12 11:49] VITALS: BP 112/58; BP 118/58; BMI 26.1
== END ==
PROVIDERS: PCP Hospitalist; Visit Provider Internal Medicine Cardiovascular Disease
DX: I42.9 Cardiomyopathy, unspecified (principal); Z95.810 Presence of automatic (implantable) cardiac defibrillator
CPT/HCPCS: 93295